=== PATIENT | female | born 1960 | race American Indian/Alaskan Native ===

== ENCOUNTER 2016-09-10 01:44 | Inpatient (IN) | payer MEDICAID ==
--- NOTE | 2016-09-10 02:31 | ED PDOC ---
Arrival/HPI - General Chief Complaint: Anxiety Time Seen by Provider: 09/10/16 02:05 Historian: Patient - History of Present Illness Narrative History of Present Illness (Text): 09/10/16 02:24 [place] He is a 55 year old female, whose past medical history includes cervical cancer currently undergoing chemotherapy and 2 CVAs, who presents to the Emergency department complaining of bilateral lower extremity pain, chest pain, and shortness of breath tonight. Patient states she feels symptoms may be due to her anxiety. Patient states she is not from the area and is currently visiting. Patient denies any fever, chills, nausea, vomiting, diarrhea, urinary symptoms, back pain, neck pain, headache, dizziness, or any other complaints. Symptom Onset: Gradual Symptom Course: Unchanged Quality: Cramping Activities at Onset: Rest, Light Context: Home Past Medical History - Provider Review Nursing Documentation Reviewed: Yes - Cardiac Hx Hypertension: Yes - Pulmonary Hx Respiratory Disorders: No - Neurological Hx Neurological Disorder: No - HEENT Hx HEENT Disorder: No - Renal Hx Renal Disorder: No - Endocrine/Metabolic Hx Endocrine Disorders: No - Hematological/Oncological Hx Blood Disorders: No - Integumentary Hx Dermatological Disorder: No - Musculoskeletal/Rheumatological Hx Musculoskeletal Disorders: No - Gastrointestinal Hx Gastrointestinal Disorders: No - Genitourinary/Gynecological Hx Genitourinary Disorders: No - Psychiatric Hx Anxiety: Yes Hx Substance Use: No - Surgical History Hx Hysterectomy: Yes (cancer) - Anesthesia Hx Anesthesia: No Family/Social History - Physician Review Nursing Documentation Reviewed: Yes Family/Social History: Unknown Family HX Smoking Status: Never Smoked Hx Alcohol Use: Yes (wine coolers) Frequency of alcohol use: Daily Hx Substance Use: No Allergies/Home Meds Allergies/Adverse Reactions: Allergies No Known Allergies Allergy (Verified 09/10/16 02:01) Home Medications: Home Meds Medication Instructions Recorded Confirmed Unobtainable 09/10/16 09/10/16 Review of Systems - Physician Review All systems were reviewed & negative as marked: Yes - Review of Systems Constitutional: Normal. absent: Fevers Eyes: Normal ENT: Normal Respiratory: SOB Cardiovascular: Chest Pain Gastrointestinal: Normal. absent: Abdominal Pain, Diarrhea, Nausea, Vomiting Genitourinary Female: Normal. absent: Dysuria, Frequency, Hematuria, Urine Output Changes Musculoskeletal: Other (+bilateral lower extremity pain). absent: Back Pain, Neck Pain Skin: Normal. absent: Rash Neurological: Normal. absent: Headache, Dizziness Endocrine: Normal Hemo/Lymphatic: Normal Psychiatric: Normal Physical Exam Vital Signs Reviewed: Yes Vital Signs Temp Pulse Resp BP Pulse Ox 09/10/16 02:01 97.3 F L 67 18 152/96 H 98 Temperature: Afebrile Blood Pressure: Normal Pulse: Regular Respiratory Rate: Normal Appearance: Positive for: Well-Appearing, Non-Toxic, Comfortable Pain Distress: None Mental Status: Positive for: Alert and Oriented X 3 - Systems Exam Head: Present: Atraumatic, Normocephalic Pupils: Present: PERRL Extroacular Muscles: Present: EOMI Conjunctiva: Present: Normal Mouth: Present: Moist Mucous Membranes Neck: Present: Normal Range of Motion Respiratory/Chest: Present: Clear to Auscultation, Good Air Exchange. No: Respiratory Distress, Accessory Muscle Use Cardiovascular: Present: Regular Rate and Rhythm, Normal S1, S2. No: Murmurs Abdomen: Present: Normal Bowel Sounds. No: Tenderness, Distention, Peritoneal Signs Back: Present: Normal Inspection Upper Extremity: Present: Normal Inspection. No: Cyanosis, Edema Lower Extremity: Present: Normal Inspection. No: Edema Neurological: Present: GCS=15, CN II-XII Intact, Speech Normal Skin: Present: Warm, Dry, Normal Color. No: Rashes Psychiatric: Present: Alert, Oriented x 3, Normal Insight, Normal Concentration Medical Decision Making ED Course and Treatment: 09/10/16 02:24 Impression: 55 year old female complaining of bilateral lower extremity pain, chest pain, and shortness of breath. Plan: -- US Duplex Lower Extremities -- EKG -- Chest X-ray -- Labs, D-dimer -- Xanax -- Reassess and disposition Progress Notes: 09/10/16 03:43 Reviewed EKG, NSR at 69 bpm. Sinus arrhythmia. No acute changes. 09/10/16 04:06 US Duplex Lower Extremities negative for DVT. Reviewed radiology, Chest X-ray shows no acute processes. Labs noted. D-dimer: 1.52. CTA Chest ordered. 09/10/16 05:[address] Hays, who is aware and agrees with plan. Accepts pt in to hospitalist service. Pt will go to Telemetry observation for chest pain. vice president of development notified. 09/10/16 05:14 Pt refusing IV access for CTA. Pt kept for observation. - Lab Interpretations Lab Results: 09/10/16 03:04 09/10/16 03:04 Lab Results 09/10/16 03:04: PT 11.4, INR 1.06, APTT 26.5, D-Dimer, Quantitative 1.52 H 09/10/16 03:04: WBC 4.4 L, RBC 3.25 L, Hgb 9.5 L, Hct 28.5 L, MCV 87.7, MCH 29.2 , MCHC 33.3, RDW 15.8 H, Plt Count 230, MPV 8.8 09/10/16 03:04: Sodium 141, Potassium 3.2 L, Chloride 108 H, Carbon Dioxide 23, Anion Gap 13, BUN 10, Creatinine 1.0, Est GFR ( Amer) > 60, Est GFR (Non- Af Amer) 57, Random Glucose 95, Calcium 9.3, Total Bilirubin 0.7, AST 42 H, ALT 33, Alkaline Phosphatase 90, Total Protein 7.0, Albumin 3.5, Globulin 3.5, Albumin/Globulin Ratio 1.0 L I have reviewed the lab results: Yes - RAD Interpretation Radiology Orders: 09/10/16 02:38 CHEST PORTABLE [RAD] Stat 09/10/16 02:39 DUPLEX LOWER EXTRM VEIN BILAT [US] Stat 09/10/16 04:14 ANGIO CHEST PE PROTOCOL [CT] Stat Rail Operator: ED Physician - EKG Interpretation Interpreted by ED Physician: Yes Type: 12 lead EKG - Medication Orders Current Medication Orders: Sodium Chloride (Sodium Chloride 0.9%) 1,000 mls @ 100 mls/hr IV .Q10H REGINE Discontinued Medications Alprazolam (Xanax) 0.25 mg PO ONCE ONE Stop: 09/10/16 02:41 Last Admin: 09/10/16 03:18 Dose: 0.25 mg Iodixanol (Visipaque 320 Mg/Ml 100 Ml) Confirm Administered Dose 100 ml IV .STK- MED ONE Stop: 09/10/16 04:22 Potassium Chloride (K-Dur 20 Meq Er Tab) 20 meq PO STAT STA Stop: 09/10/16 04:14 Last Admin: 09/10/16 04:39 Dose: 20 meq - Scribe Statement The provider has reviewed the documentation as recorded by the Jeni Rdz Provider Scribe Attestation: All medical record entries made by the Brendaibmichel were at my direction and personally dictated by me. I have reviewed the chart and agree that the record accurately reflects my personal performance of the history, physical exam, medical decision making, and the department course for this patient. I have also personally directed, reviewed, and agree with the discharge instructions and disposition. Disposition/Present on Arrival - Present on Arrival Any Indicators Present on Arrival: No History of DVT/PE: No History of Uncontrolled Diabetes: No Urinary Catheter: No History of Decub. Ulcer: No History Surgical Site Infection Following: None - Disposition Have Diagnosis and Disposition been Completed?: Yes Diagnosis: Chest pain Disposition: HOSPITALIZED Disposition Time: 05:20 Patient Plan: Observation Condition: STABLE Discharge Instructions (ExitCare): Chest Pain (ED)
[2016-09-10 03:29] LABS: HEMOGLOBIN 9.5 gm/dL (12.0-16.0); MEAN CELL VOLUME 87.7 fL (80.0-105.0); MEAN CORPUSCULAR HEMOGLOBIN 29.2 pg (25.0-35.0); MEAN CORPUSCULAR HGB CONC 33.3 g/dl (31.0-37.0); MEAN PLATELET VOLUME 8.8 fl (7.0-11.0); RBC 3.25 10^6/uL (3.5-6.1); RED CELL DISTRIBUTION WIDTH 15.8 % (11.5-14.5); WHITE BLOOD COUNT 4.4 10^3/ul (4.5-11.0)
[2016-09-10 03:32] LABS: ALBUMIN 3.5 g/dL (3.0-4.8); ALT/SGPT 33 U/L (7-56); AST/SGOT 42 U/L (15-39); BLOOD UREA NITROGEN 10 mg/dL (7-21); CALCIUM 9.3 mg/dL (8.4-10.5); GFR AFRICAN-AMERICAN > 60; GFR NON-AFRICAN AMERICAN 57
[2016-09-10 03:38] LABS: INR 1.06 (0.93-1.08); PARTIAL THROMBOPLASTIN TIME 26.5 Seconds (23.7-30.8); PROTHROMBIN TIME 11.4 Seconds (9.9-11.8)
[2016-09-10 03:41] LABS: D DIMER 1.52 mg/L FEU (0-0.50)
[2016-09-10] MEDS ORDERED: Potassium Chloride 20 mEq ER Tab PO STA (04:13)
[2016-09-10] MEDS ORDERED: Iodixanol 320 MG/ML 100 ML BOTTLE IV ONE (04:21)
--- NOTE | 2016-09-10 04:34 | CP.PCM.HP ---
<Edmundo Sheriff - Last Filed: 09/10/16 05:43> History of Present Illness - History of Present Illness History of Present Illness: Patient is a 55 year old female, whose past medical history includes cervical cancer, 2 CVAs, hypertension, and anxiety who is being admitted to the ED for evaluation of bilateral lower extremity pain, chest pain, and shortness of breath. Patient states that she has been experiencing cramping in her bilateral lower extremities for the past 2 weeks. Patient also states that she is experiencing groin pain which radiates to her substernum. She currently admits to SOB with exertion. It is important to note that the patient is from [place], [place] and is visiting [place]. She admits to receiving chemotherapy for her cervical cancer last year and her last dose was 6 months ago. She states her physicians, whom she cannot recall, stopped the chemotherapy after findings of cancer metastasizing. Patient is currently denying fever, chills, dizziness, abdominal pain, N/V, diarrhea, constipation, and urinary symptoms. PMHx: Hypertension, cervical cancer, anxiety, CVA PSHx: hysterectomy Social: ETOH occasional, former tobacco user- quit 10 years ago, states she smoked a few cigarettes for "some time"- will not quantify, no illicit drug use Meds: patient cannot recall any home medications, states her health insurance changed Family Hx: noncontributory to case Allergies: pencillin- rash Present on Admission - Present on Admission Any Indicators Present on Admission: No Review of Systems - Review of Systems Review of Systems: Please see HPI Past Patient History - Past Social History Smoking Status: Never Smoked - CARDIAC Hx Hypertension: Yes - PULMONARY Hx Respiratory Disorders: No - NEUROLOGICAL Hx Neurological Disorder: No - HEENT Hx HEENT Problems: No - RENAL Hx Chronic Kidney Disease: No - ENDOCRINE/METABOLIC Hx Endocrine Disorders: No - HEMATOLOGICAL/ONCOLOGICAL Hx Blood Disorders: No - INTEGUMENTARY Hx Dermatological Problems: No - MUSCULOSKELETAL/RHEUMATOLOGICAL Hx Musculoskeletal Disorders: No - GASTROINTESTINAL Hx Gastrointestinal Disorders: No - GENITOURINARY/GYNECOLOGICAL Hx Genitourinary Disorders: No - PSYCHIATRIC Hx Anxiety: Yes Hx Substance Use: No - SURGICAL HISTORY Hx Hysterectomy: Yes (cancer) - ANESTHESIA Hx Anesthesia: No Meds Allergies/Adverse Reactions: Allergies Allergy/AdvReac Type Severity Reaction Status Date / Time No Known Allergies Allergy Verified 09/10/16 02:01 Physical Exam - Constitutional Appears: Unkempt, Agitated - Head Exam Head Exam: NORMAL INSPECTION - Eye Exam Eye Exam: EOMI, Normal appearance - Neck Exam Neck exam: Positive for: Normal Inspection. Negative for: Tenderness - Respiratory Exam Respiratory Exam: Clear to Auscultation Bilateral, Rales, Rhonchi, Wheezes, NORMAL BREATHING PATTERN. absent: Accessory Muscle Use - Cardiovascular Exam Cardiovascular Exam: REGULAR RHYTHM, +S1, +S2 - GI/Abdominal Exam GI & Abdominal Exam: Normal Bowel Sounds, Soft. absent: Guarding, Rigid - Exam Additional comments: patient currently agitated and is requesting to be left alone denies permission for examination at this time - Extremities Exam Extremities exam: Positive for: normal inspection, pedal pulses present - Neurological Exam Neurological exam: Alert, CN II-XII Intact, Oriented x3 Additional comments: patient is awake, alert, responds to verbal stimuli, follows commands, and moves extremities past midline - Psychiatric Exam Psychiatric exam: Agitated, Anxious - Skin Skin Exam: Normal Color, Warm Results - Vital Signs Recent Vital Signs: Last Vital Signs Temp 97.3 F L 09/10/16 02:01 Pulse 67 09/10/16 02:01 Resp 18 09/10/16 02:01 BP 152/96 H 09/10/16 02:01 Pulse Ox 98 09/10/16 02:01 - Labs Result Diagrams: 09/10/16 03:04 09/10/16 03:04 Labs: Laboratory Results - last 24 hr 09/10/16 09/10/16 09/10/16 03:04 03:04 03:04 WBC 4.4 L RBC 3.25 L Hgb 9.5 L Hct 28.5 L MCV 87.7 MCH 29.2 MCHC 33.3 RDW 15.8 H Plt Count 230 MPV 8.8 PT 11.4 INR 1.06 APTT 26.5 D-Dimer, Quantitative 1.52 H Sodium 141 Potassium 3.2 L Chloride 108 H Carbon Dioxide 23 Anion Gap 13 BUN 10 Creatinine 1.0 Est GFR ( Amer) > 60 Est GFR (Non-Af Amer) 57 Random Glucose 95 Calcium 9.3 Total Bilirubin 0.7 AST 42 H ALT 33 Alkaline Phosphatase 90 Total Protein 7.0 Albumin 3.5 Globulin 3.5 Albumin/Globulin Ratio 1.0 L Assessment & Plan - Assessment and Plan (Free Text) Assessment: Patient is a 55 year old female with a PMHx of hypertension, cervical cancer, and anxiety who is being admitted for evaluation and treatment of bilateral lower extremity pain, chest pain, and SOB. 1. Bilateral Lower Extremity Pain - US Duplex Lower Extremities- preliminary read by ED is negative for DVT - D dimer: 1.52. - CTA Chest ordered by ED physician- pending during admit 2. Chest Pain, SOB - likely 2/2 to anxiety - Reviewed EKG, NSR at 69 bpm. Sinus arrhythmia. No acute changes. - troponins stat q4 x 4 - HgBA1C - Lipid Panel - TSH 3. Anemia - no trend available as this is the patient first visit - iron studies (Fe, TIBC, Ferritin, Folate, B12) 4. Hypokalemia - replete - monitor via daily BMP 5. 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 Hx of Htn - lisinopril 20mg daily 7. PPX - protonix - subq heparin <Lis ANDREA,Chase - Last Filed: 09/10/16 08:31> Results - Vital Signs Recent Vital Signs: Last Vital Signs Temp 98.3 F 09/10/16 07:40 Pulse 54 L 09/10/16 07:40 Resp 18 09/10/16 07:40 BP 114/79 09/10/16 07:40 Pulse Ox 97 09/10/16 07:40 - Labs Result Diagrams: 09/10/16 03:04 09/10/16 03:04 Attending/Attestation - Attestation I have personally seen and examined this patient.: Yes I have fully participated in the care of the patient.: Yes I have reviewed all pertinent clinical information: Yes Notes (Text): 09/10/16 08:23 -I agree with the above H&P completed by the resident physician with the following additions and/or changes: The patient is a 55 year old woman with a history of cervical cancer, HTN, anxiety disorder and multiple CVA's (with no residual deficits), who presents with multiple complaints including 2 weeks of worsening bilateral lower extremity pain, intermittent chest pain and SOB. She denies orthopnea, PND, fevers or chills. Because of an elevated D-Dimer on ED labs, a CT-angio has been ordered to rule out acute PE (although the patient's vitals are relatively normal). Also, serial trops and EKG's as well as HgA1c, lipids and TSH has been ordered. Preliminary U/S of her legs was negative for DVT. We will start patient on daily Lisinopril for her HTN since she cannot remember her home medication. Also, a cardiology consult has been requested.
[2016-09-10] MEDS: Sodium Chloride 0.9% 1,000 ML IV SCH ×2 (04:39→06:16)
--- NOTE | 2016-09-10 08:06 | RAD ---
HISTORY: fever COMPARISON: No prior. FINDINGS: The right MediPort terminates in the SVC. LUNGS: Lung markings are accentuated. There is no focal consolidation. There is mild pulmonary hyperinflation. PLEURA: No significant pleural effusion identified, no pneumothorax apparent. CARDIOVASCULAR: Normal. OSSEOUS STRUCTURES: No significant abnormalities. VISUALIZED UPPER ABDOMEN: Normal. OTHER FINDINGS: None. IMPRESSION: No lobar pneumonia. Findings could be related to atypical/ viral pneumonia.
[2016-09-10 08:20] LABS: HDL CHOLESTEROL 40 mg/dL (29-60); MAGNESIUM 1.8 mg/dL (1.7-2.2)
[2016-09-10 08:31] LABS: LDL CHOLESTEROL 40 mg/dL (0-129)
[2016-09-10] MEDS: Pantoprazole 40 mg EC Tab PO SCH (08:34)
[2016-09-10 08:39] LABS: TROPONIN I < 0.01 ng/mL
--- NOTE | 2016-09-10 08:56 | US ---
HISTORY: Leg pain and swelling. Evaluate for DVT PHYSICIAN(S): Jose Luis Munroe MD. TECHNIQUE: Duplex sonography and color-flow Doppler with graded compression were used to evaluate the deep venous systems of both lower extremities. FINDINGS: The visualized deep venous systems of both lower extremities are sonographically normal and compressible. Normal wave forms and augmentation are seen. There is no sonographic evidence for deep venous thrombosis in the visualized segments of both lower extremities. IMPRESSION: No sonographic evidence for deep venous thrombosis in the visualized segments of both lower extremities.
[2016-09-10 12:46] LABS: FOLATE 7.2 ng/mL
[2016-09-10 13:47] VITALS: BMI 25.5
[2016-09-10 15:18] LABS: URINE BILIRUBIN NEGATIVE (NEGATIVE); URINE BLOOD TRACE-INTACT (NEGATIVE); URINE GLUCOSE (UA) NEGATIVE (NEGATIVE); URINE LEUKOCYTE ESTERASE LARGE Leu/uL (NEGATIVE); URINE NITRATE NEGATIVE (NEGATIVE); URINE PROTEIN TRACE mg/dL (<30 mg/dL)
[2016-09-10 15:28] LABS: URINE APPEARANCE SL CLOUDY (CLEAR); URINE COLOR YELLOW (YELLOW)
[2016-09-10 15:37] LABS: URINE RBC 0 - 2 /hpf (0-2); URINE WBC TNTC /hpf (0-6)
[2016-09-10 15:38] LABS: URINE BACTERIA FEW (NEG)
[2016-09-10 15:50] LABS: BARBITURATES, UR NEGATIVE (NEGATIVE); BENZODIAZEPINES, UR POSITIVE (NEGATIVE); OPIATES, UR NEGATIVE (NEGATIVE); PHENCYCLIDINE, UR NEGATIVE (NEGATIVE)
--- NOTE | 2016-09-10 18:33 | CP.PCM.PN ---
<Myke Pope - Last Filed: 09/10/16 18:30> Subjective - Date & Time of Evaluation Date of Evaluation: 09/10/16 Time of Evaluation: 18:31 - Subjective Subjective: Patient is no longer complaining of SOB. She is still complain of Lower Extremity pain. She states that the pain starts in her groin region and radiates up to her chest. She still complains of chest pain that is reproducible. Of note, patient is a poor historian. Objective - Vital Signs/Intake and Output Vital Signs (last 24 hours): Temp Pulse Resp BP Pulse Ox 98.3 F 74 18 114/79 97 09/10/16 13:31 09/10/16 14:00 09/10/16 13:31 09/10/16 13:31 09/10/16 07:40 Intake and Output: 09/10/16 09/10/16 06:59 18:59 Intake Total 480 Balance 480 - Medications Medications: Current Medications Aspirin (Aspirin Chewable) 81 mg PO DAILY [facility] Last Admin: 09/10/16 09:57 Dose: 81 mg Heparin Sodium (Porcine) (Heparin) 5,000 units SC Q12 REGINE PRN Reason: Protocol Hydroxyzine HCl (Atarax) 15 mg PO TID PRN PRN Reason: Anxiety Last Admin: 09/10/16 14:46 Dose: 15 mg Ceftriaxone Sodium (Rocephin 1 Gram Ivpb) 1 gm in 100 mls @ 100 mls/hr IVPB DAILY REGINE PRN Reason: Protocol Lisinopril (Zestril) 20 mg PO DAILY [facility] Last Admin: 09/10/16 06:20 Dose: 20 mg Pantoprazole Sodium (Protonix Ec Tab) 40 mg PO ACB [facility] Last Admin: 09/10/16 08:34 Dose: 40 mg Quetiapine Fumarate (Seroquel) 50 mg PO TID REGINE PRN Reason: Protocol Last Admin: 09/10/16 18:25 Dose: Not Given - Labs Labs: PT 11.4 Seconds (9.9-11.8) 09/10/16 03:04 INR 1.06 (0.93-1.08) 09/10/16 03:04 APTT 26.5 Seconds (23.7-30.8) 09/10/16 03:04 - Head Exam Head Exam: ATRAUMATIC, NORMOCEPHALIC - Respiratory Exam Respiratory Exam: Clear to Ausculation Bilateral. absent: Rales, Rhonchi, Wheezes, Stridor - Cardiovascular Exam Cardiovascular Exam: REGULAR RHYTHM, +S1, +S2 - GI/Abdominal Exam GI & Abdominal Exam: Tenderness Additional comments: suprapubic tenderness - Extremities Exam Extremities Exam: absent: Pedal Edema - Neurological Exam Neurological Exam: Altered, Awake - Psychiatric Exam Psychiatric exam: Anxious Assessment and Plan - Assessment and Plan (Free Text) Assessment: Patient is a 55 year old female with a PMHx of hypertension, cervical cancer, CVA and anxiety who is being admitted for evaluation and treatment of bilateral lower extremity pain, chest pain, and SOB. UA came back positive. UDS was positive for Cocaine and Benzodiazepines. Patient is poor historian. Further investigation reveals that patient was receiving chemotherapy while living in [place] but has likely not received treatment for a couple months (per daughter). Pharmacy was called and medication list was updated. Seroquel and Hydorxizine were added. Plan: 1. Bilateral proximal lower extremity/pelvic pain - US Duplex Lower Extremities negative - D dimer: 1.52. - CTA Chest ordered-F/U 2. Chest Pain, SOB - Likely 2/2 to anxiety and cocaine use. - Reviewed EKG, NSR at 69 bpm. Sinus arrhythmia. No acute changes. - troponins (1st trop negative) - HgBA1C - Lipid Panel normal - TSH normal 3.UTI -Rocephin 1gm in 100ml IVP Daily 4. Anemia (Hgb 9.5) - Iron Studies normal. Possibly Anemia of chronic disease 4. Anxiety -Seroquel 50 PO TID -Hydroxyzine 15 PO TID PRN -D/Cd Xanax 4. Hypokalemia - Replete - monitor via daily BMP 5. 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 Hx of Htn - lisinopril 20mg daily 7. PPX - protonix - subq heparin <Rolando Del Valle - Last Filed: 09/10/16 21:33> Objective - Vital Signs/Intake and Output Vital Signs (last 24 hours): Temp Pulse Resp BP Pulse Ox 98.3 F 69 18 114/79 97 09/10/16 13:31 09/10/16 18:00 09/10/16 13:31 09/10/16 13:31 09/10/16 07:40 Intake and Output: 09/10/16 09/11/16 18:59 06:59 Intake Total 480 Balance 480 - Medications Medications: Current Medications Aspirin (Aspirin Chewable) 81 mg PO DAILY [facility] Last Admin: 09/10/16 09:57 Dose: 81 mg Heparin Sodium (Porcine) (Heparin) 5,000 units SC Q12 REGINE PRN Reason: Protocol Hydroxyzine HCl (Atarax) 15 mg PO TID PRN PRN Reason: Anxiety Last Admin: 09/10/16 14:46 Dose: 15 mg Ceftriaxone Sodium (Rocephin 1 Gram Ivpb) 1 gm in 100 mls @ 100 mls/hr IVPB DAILY REGINE PRN Reason: Protocol Lisinopril (Zestril) 20 mg PO DAILY [facility] Last Admin: 09/10/16 06:20 Dose: 20 mg Pantoprazole Sodium (Protonix Ec Tab) 40 mg PO ACB [facility] Last Admin: 09/10/16 08:34 Dose: 40 mg Quetiapine Fumarate (Seroquel) 50 mg PO TID [facility] PRN Reason: Protocol Last Admin: 09/10/16 18:25 Dose: Not Given - Labs Labs: PT 11.4 Seconds (9.9-11.8) 09/10/16 03:04 INR 1.06 (0.93-1.08) 09/10/16 03:04 APTT 26.5 Seconds (23.7-30.8) 09/10/16 03:04 Attending/Attestation - Attestation I have personally seen and examined this patient.: Yes I have fully participated in the care of the patient.: Yes I have reviewed all pertinent clinical information, including history, physical exam and plan: Yes Notes (Text): 09/10/16 21:28 55 year old female with past medical history of hypertension, anxiety and cervical cancer who presented with complaint of chest pain, shortness of breath , suprapubic pain and bilateral LE pain. D-dimer was elevated. LE doppler was negative and CT angio was ordered to rule out PE. Serial cardiac enzymes are ordered. Cardiology evaluation is requested. She states she was [place] [facility] and recent medical records are requested. UA is positive for UTI and Utox was positive for cocaine and benzodiazepines. Anemia workup was ordered for anemia. Continue with lisinopril for hypertension. Hypokalemia was repleted earlier today; will follow up on repeat level. Rolando Del Valle MD Hospitalist.
[2016-09-10 19:39] LABS: % IRON SATURATION 14 % (20-55); IRON 37 ug/dL (45-180); TOTAL IRON BINDING CAPACITY 263 ug/dL (265-497)
--- NOTE | 2016-09-10 20:36 | CARD ---
APPROVED REPORT EKG Measurement Heart [id number] <Conclusion> Normal sinus rhythm Normal ECG
--- NOTE | 2016-09-10 20:42 | CARD ---
APPROVED REPORT EKG Measurement Heart [id number] VA [id number] <Conclusion> Sinus bradycardia with marked sinus arrhythmia Otherwise normal ECG
--- NOTE | 2016-09-10 23:24 | CARD ---
APPROVED REPORT EKG Measurement Heart [id number] NM 162P72 [id number] <Conclusion> Normal sinus rhythm with sinus arrhythmia Normal ECG
--- NOTE | 2016-09-10 23:44 | CARD ---
APPROVED REPORT EKG Measurement Heart [id number] AL [id number] <Conclusion> Normal sinus rhythm Low voltage QRS Nonspecific T wave abnormality Abnormal ECG
--- NOTE | 2016-09-11 02:18 | CON ---
DATE: 09/10/2016 REASON FOR CONSULTATION: Chest pain. HISTORY OF PRESENT ILLNESS: The patient is a 55-year-old female who has history of hypertension, history of two strokes in the past, history of cervical cancer, currently undergoing chemotherapy and history of cocaine abuse. She presented because of bilateral lower extremity pain as well as sharp chest pain. The patient is unaware of any history of heart attack in the past. The patient was hospitalized recently at [facility], but could not give any significant information about this hospitalization. There is no reported arrhythmia on the monitor since the patient's admission. SOCIAL HISTORY: The patient is a smoker and cocaine abuser. MEDICATIONS: Aspirin 81 mg once daily, heparin 5000 units subcutaneous twice a day, Zestril 20 mg once a day, Protonix 40 mg once a day. REVIEW OF SYSTEMS: No fever or chills. No syncope. PHYSICAL EXAMINATION: GENERAL: The patient is a middle-aged female, who does not appear to be in any distress at this time. VITAL SIGNS: Blood pressure 115/82, heart rate 76, temperature 97.4, respirations 18. HEENT: Pale conjunctivae. CHEST: Clear. HEART: Sounds regular. EXTREMITIES: No edema. LABORATORY DATA: Hemoglobin and hematocrit 9.5 and 28.5. White count and platelet count are 4.4 and 230,000. Sodium 141, potassium 3.2, chloride 108, CO2 of 23, glucose of 95, BUN 10, creatinine 1.0. TSH level is within normal limit. D-dimer is 1.52. PT/PTT are within normal limits. Venous Doppler of the lower extremities; no evidence of DVT. CT angio of the chest is still pending. EKG revealed sinus rhythm or sinus arrhythmia. One set of troponin is negative. ASSESSMENT: 1. Chest pain, rule out myocardial infarction. 2. Rule out pulmonary infarction. 3. Hypertension and history of cerebrovascular accident. 4. History of uterine cancer, undergoing chemotherapy. CONDITIONS: The case was discussed with Dr. Del Valle. Continue current aspirin, subcutaneus heparin, Zestril at 20 mg once a day. The patient is awaiting echo and CT angio of the chest. David Johnson MD
[2016-09-11 06:58] LABS: BASO # 0.01 K/mm3 (0.0-2.0); BASO % 0.3 % (0.0-3.0); EOS # 0.1 (0.0-0.7); EOS % 3.1 % (1.5-5.0); GRAN # 2.09 (1.4-6.5); GRAN % 64.5 % (50.0-68.0); HEMOGLOBIN 9.8 gm/dL (12.0-16.0); LYMPH # 0.7 (1.2-3.4); LYMPH % 20.7 % (22.0-35.0); MEAN CELL VOLUME 87.7 fL (80.0-105.0); MEAN CORPUSCULAR HEMOGLOBIN 29.3 pg (25.0-35.0); MEAN CORPUSCULAR HGB CONC 33.4 g/dl (31.0-37.0); MEAN PLATELET VOLUME 9.5 fl (7.0-11.0); MONO # 0.4 (0.1-0.6); MONO % 11.4 % (1.0-6.0); PLATELET COUNT 227 10^3/uL (120.0-450.0); RBC 3.34 10^6/uL (3.5-6.1); RED CELL DISTRIBUTION WIDTH 15.9 % (11.5-14.5); WHITE BLOOD COUNT 3.2 10^3/ul (4.5-11.0)
[2016-09-11 07:11] LABS: ALBUMIN 3.1 g/dL (3.0-4.8); ALT/SGPT 23 U/L (7-56); AST/SGOT 32 U/L (15-39); BLOOD UREA NITROGEN 16 mg/dL (7-21); CALCIUM 9.1 mg/dL (8.4-10.5); GFR AFRICAN-AMERICAN > 60; GFR NON-AFRICAN AMERICAN 57
[2016-09-11] MEDS: Pantoprazole 40 mg EC Tab PO SCH (08:06)
[2016-09-11] MEDS: cefTRIAXone 1 gm 1 GM/100 ML BAG IVPB SCH (09:29)
[2016-09-11] MEDS ORDERED: Iodixanol 320 mg/ml 150 ml Bottle IV ONE (13:47)
--- NOTE | 2016-09-11 16:29 | CP.PCM.PN ---
<Mayo Popegaudencio - Last Filed: 09/11/16 16:26> Subjective - Date & Time of Evaluation Date of Evaluation: 09/11/16 Time of Evaluation: 16:26 - Subjective Subjective: Pt seen and examined this morning. Pt reports continued pain in her groin. Also complains of urinary frequency. Denies fever, chills, SOB, dysuria, constipation , diarrhea. Objective - Vital Signs/Intake and Output Vital Signs (last 24 hours): Temp Pulse Resp BP Pulse Ox 98.4 F 74 21 119/82 98 09/11/16 11:33 09/11/16 11:33 09/11/16 11:33 09/11/16 11:33 09/11/16 08:00 Intake and Output: 09/11/16 09/11/16 06:59 18:59 Intake Total 620 Output Total 850 Balance -230 - Medications Medications: Current Medications Aspirin (Aspirin Chewable) 81 mg PO DAILY [facility] Last Admin: 09/11/16 09:28 Dose: 81 mg Ferrous Sulfate (Feosol) 324 mg PO TID [facility] Last Admin: 09/11/16 14:06 Dose: 324 mg Heparin Sodium (Porcine) (Heparin) 5,000 units SC Q12 [facility] PRN Reason: Protocol Last Admin: 09/11/16 09:28 Dose: 5,000 units Hydroxyzine HCl (Atarax) 15 mg PO TID PRN PRN Reason: Anxiety Last Admin: 09/11/16 14:06 Dose: 15 mg Ceftriaxone Sodium (Rocephin 1 Gram Ivpb) 1 gm in 100 mls @ 100 mls/hr IVPB DAILY [facility] PRN Reason: Protocol Last Admin: 09/11/16 09:29 Dose: 100 mls/hr Ibuprofen (Motrin Tab) 600 mg PO Q6H PRN PRN Reason: Pain, moderate (4-7) Lisinopril (Zestril) 20 mg PO DAILY [facility] Last Admin: 09/11/16 09:30 Dose: 20 mg Pantoprazole Sodium (Protonix Ec Tab) 40 mg PO ACB [facility] Last Admin: 09/11/16 08:06 Dose: 40 mg - Labs Labs: 09/11/16 06:30 09/11/16 06:30 PT 11.4 Seconds (9.9-11.8) 09/10/16 03:04 INR 1.06 (0.93-1.08) 09/10/16 03:04 APTT 26.5 Seconds (23.7-30.8) 09/10/16 03:04 - Constitutional Appears: Non-toxic - Head Exam Head Exam: ATRAUMATIC Additional comments: Tardive dyskensia vs Facial Droop - Eye Exam Eye Exam: EOMI - ENT Exam ENT Exam: Mucous Membranes Moist - Respiratory Exam Respiratory Exam: Clear to Ausculation Bilateral. absent: Rales, Rhonchi, Wheezes, Stridor - Cardiovascular Exam Cardiovascular Exam: RRR, +S1, +S2 - GI/Abdominal Exam GI & Abdominal Exam: Soft, Normal Bowel Sounds Additional comments: Suprapubic tenderness - Extremities Exam Extremities Exam: absent: Joint Swelling, Pedal Edema - Neurological Exam Neurological Exam: Alert, Altered, Oriented x3 - Psychiatric Exam Psychiatric exam: Anxious - Skin Skin Exam: Dry, Intact, Normal Color, Warm Assessment and Plan - Assessment and Plan (Free Text) Assessment: 55yo AA F with PMH of HTN, CVA x2, cervical cancer and anxiety admitted for chest pain, SOB, and b/l LE pain. On exam patient had facial droop vs tardive dyskesia. CT of head ordered by cardio to r/o CVA due to hx of to previous CTA's Plan: 1.Bilateral lower extremity/pelvic pain -US duplex LE neg, D Dimer 1.52 -f/u CTA -f/u CT abd/pelvis for unimproved abd/pelvic pain 2.Chest pain -Likely 2/2 anxiety or cocaine use (positive drug screen), r/o ACS and PE -.EKG shows sinus rhythm, no abnormalities -.Trops neg x2m -TG 58 TChol 104 LDL 40 HDL 40 -TSH 1.22 HbA1c 5.7 -f/u echo, trops, CTA 3.UTI -Urine cx positive for beta hemolytic strep group a -f/u urine cx sensativity -Rocephin day 2 4.Anemia -HGB 9.5->9.8 MCV 87.7 -Ferritin 86 Iron 37 TIBC 263 %Sat 14 -Iron deficiency vs anemia of chronic disease vs both -.Ferrous sulfate 325mg TID 5.Anxiety -Hydroxyzine 15 TID PRN -.d/c Seroquel -.Psych consult 6.Hypokalemia (resolved) -K 3.7 -.Monitor via daily BMP 7.Hx of cervical cancer -Medical records request faxed to [facility] (per daughter, this is where pt received chemotherapy for cervical cancer) -f/u outpt gyne 8.Hx of HTN -Lisinopril 20mg daily GI ppx PTX DVT ppx heparin sc Dispo: f/u imaging studies, medical records request, and psych recs. Cont inpatient management Pt examined, reviewed, and discussed with attending Myke Pope PGY-1 <Rolando Del Valle - Last Filed: 09/11/16 21:42> Objective - Vital Signs/Intake and Output Vital Signs (last 24 hours): Temp Pulse Resp BP Pulse Ox 98 F 76 18 123/85 98 09/11/16 17:55 09/11/16 18:00 09/11/16 17:55 09/11/16 17:55 09/11/16 16:00 Intake and Output: 09/11/16 09/12/16 18:59 06:59 Intake Total 620 Output Total 850 Balance -230 - Medications Medications: Current Medications Aspirin (Aspirin Chewable) 81 mg PO DAILY [facility] Last Admin: 09/11/16 09:28 Dose: 81 mg Ferrous Sulfate (Feosol) 324 mg PO TID [facility] Last Admin: 09/11/16 17:53 Dose: 324 mg Heparin Sodium (Porcine) (Heparin) 5,000 units SC Q12 [facility] PRN Reason: Protocol Last Admin: 09/11/16 09:28 Dose: 5,000 units Hydroxyzine HCl (Atarax) 15 mg PO TID PRN PRN Reason: Anxiety Last Admin: 09/11/16 21:00 Dose: 15 mg Ceftriaxone Sodium (Rocephin 1 Gram Ivpb) 1 gm in 100 mls @ 100 mls/hr IVPB DAILY [facility] PRN Reason: Protocol Last Admin: 09/11/16 09:29 Dose: 100 mls/hr Ibuprofen (Motrin Tab) 600 mg PO Q6H PRN PRN Reason: Pain, moderate (4-7) Lisinopril (Zestril) 20 mg PO DAILY [facility] Last Admin: 09/11/16 09:30 Dose: 20 mg Pantoprazole Sodium (Protonix Ec Tab) 40 mg PO ACB [facility] Last Admin: 09/11/16 08:06 Dose: 40 mg - Labs Labs: 09/11/16 06:30 09/11/16 06:30 PT 11.4 Seconds (9.9-11.8) 09/10/16 03:04 INR 1.06 (0.93-1.08) 09/10/16 03:04 APTT 26.5 Seconds (23.7-30.8) 09/10/16 03:04 Attending/Attestation - Attestation I have personally seen and examined this patient.: Yes I have fully participated in the care of the patient.: Yes I have reviewed all pertinent clinical information, including history, physical exam and plan: Yes Notes (Text): 09/11/16 21:34 55 year old female with past medical history of hypertension, anxiety and cervical cancer who presented with complaint of chest pain, shortness of breath , suprapubic pain and bilateral LE pain. Serial cardiac enzymes were negative. D-dimer was elevated. LE doppler was negative. She was initially refusing CT angio to rule out PE but has now agreed. Echocardiogram was reviewed. Cardiology is following. She states she was recently in [facility] and recent medical records are requested and pending. She is on antibiotics for UTI. Utox was positive for cocaine and benzodiazepines. She counselled on risks of continued substance abuse. She is on po iron for anemia. She is on lisinopril for hypertension. She was on vistaril prn and seroquel. She has some facial weakness / confusion at times. She reports history of CVA in the past so CT head is ordered. Psychiatry evaluation was requested as well. Rolando Del Valle MD Hospitalist.
--- NOTE | 2016-09-11 18:43 | CARD ---
APPROVED REPORT EXAM: Two-dimensional and M-mode echocardiogram with Doppler and color Doppler. INDICATION Chest Pain 2D DIMENSIONS Left Atrium (2D)4.1 (1.6-4.0cm)IVSd1.1 (0.7-1.1cm) LVDd4.8 (3.9-5.9cm)PWd1.3 (0.7-1.1cm) LVDs2.7 (2.5-4.0cm)FS (%) 43.7 % LVEF (%)75.0 (>50%) M-Mode DIMENSIONS Aortic Root3.10 (2.2-3.7cm)Aortic Cusp Exc.1.50 (1.5-2.0cm) Aortic Valve AoV Peak Wzgqrrzn677.0cm/Catia Peak GR.15mmHg Mitral Valve MV E Cgsjlbzq77.6cm/sMV A Mxbzsvzf55.8cm/sE/A ratio0.8 TDI E/Lateral E'0.0E/Medial E'0.0 Tricuspid Valve TR Peak Orpnkfkv460tt/sRAP [id number] Peak Gr.29mmHg [id number] LEFT VENTRICLE The left ventricle is normal size. There is borderline concentric left ventricular hypertrophy. The left ventricular function is normal. The left ventricular ejection fraction is within the normal range. There is normal LV segmental wall motion. Transmitral Doppler flow pattern is Grade I-abnormal relaxation pattern. RIGHT VENTRICLE The right ventricle is normal size. There is normal right ventricular wall thickness. The right ventricular systolic function is normal. ATRIA The left atrium size is normal. The right atrium size is normal. AORTIC VALVE The aortic valve is normal in structure. No aortic regurgitation is present. MITRAL VALVE The mitral valve is normal in structure. There is no mitral valve regurgitation noted. TRICUSPID VALVE The tricuspid valve is normal in structure. There is mild tricuspid regurgitation. There is mild pulmonary hypertension. GREAT VESSELS The aortic root is normal in size. The IVC is normal in size and collapses >50% with inspiration. PERICARDIAL EFFUSION There is no pericardial effusion. <Conclusion> The left ventricle is normal size. There is borderline concentric left ventricular hypertrophy. The left ventricular function is normal. The left ventricular ejection fraction is within the normal range. There is normal LV segmental wall motion. Transmitral Doppler flow pattern is Grade I-abnormal relaxation pattern. There is mild tricuspid regurgitation. There is mild pulmonary hypertension.
--- NOTE | 2016-09-11 21:23 | PN ---
DATE: 09/11/2016 SUBJECTIVE: The patient is sleepy after initiating Ativan. She is confused. She refused chest CT angio. PHYSICAL EXAMINATION VITAL SIGNS: Blood pressure 119/82, heart rate is 74, temperature is 98.4, respirations 21. HEENT: Normocephalic. CHEST: Clear. HEART: S1 and S2 regular. EXTREMITIES: No edema. LABORATORY DATA: Hemoglobin and hematocrit 9.8 and 29.3, white count 3.2, platelet count is 127,000. Urine drug screen is positive for cocaine and opiates. SMA-7 is within normal limits except for carbon dioxide of 112. ASSESSMENT: 1. Chest pain, myocardial infarction is ruled out. 2. Cocaine abuse. 3. Chronic obstructive pulmonary disease. 4. Lethargy. 5. Anemia. RECOMMENDATIONS: Continue current aspirin, subcutaneous heparin, IV Rocephin and Zestril. Obtain a CT scan without contrast and I will review the echocardiograph study. David Johnson MD
[2016-09-12 07:52] LABS: BASO # 0.01 K/mm3 (0.0-2.0); BASO % 0.3 % (0.0-3.0); EOS # 0.1 (0.0-0.7); EOS % 2.6 % (1.5-5.0); GRAN # 2.45 (1.4-6.5); HEMOGLOBIN 10.2 gm/dL (12.0-16.0); LYMPH # 0.5 (1.2-3.4); LYMPH % 15.4 % (22.0-35.0); MEAN CELL VOLUME 86.9 fL (80.0-105.0); MEAN CORPUSCULAR HGB CONC 33.3 g/dl (31.0-37.0); MEAN PLATELET VOLUME 9.2 fl (7.0-11.0); MONO # 0.4 (0.1-0.6); MONO % 11.7 % (1.0-6.0); PLATELET COUNT 230 10^3/uL (120.0-450.0); RBC 3.52 10^6/uL (3.5-6.1); RED CELL DISTRIBUTION WIDTH 15.6 % (11.5-14.5); WHITE BLOOD COUNT 3.5 10^3/ul (4.5-11.0)
[2016-09-12] MEDS: Pantoprazole 40 mg EC Tab PO SCH (07:55)
[2016-09-12 08:11] LABS: ALB/GLOB RATIO 1.1 (1.1-1.8); ALBUMIN 3.4 g/dL (3.0-4.8); ALT/SGPT 26 U/L (7-56); AST/SGOT 30 U/L (15-39); BLOOD UREA NITROGEN 16 mg/dL (7-21); CALCIUM 9.6 mg/dL (8.4-10.5); GFR AFRICAN-AMERICAN > 60; GFR NON-AFRICAN AMERICAN 57
[2016-09-12] MEDS: cefTRIAXone 1 gm 1 GM/100 ML BAG IVPB SCH (10:14)
--- NOTE | 2016-09-12 15:08 | PN ---
DATE: 09/10/2016 SUBJECTIVE: The patient is oriented to place. She denies any chest pain. She did not go for head CT scan yet and a CT angio report was obtained from [facility] and was reported to be negative for pulmonary embolus. PHYSICAL EXAMINATION VITAL SIGNS: Blood pressure is 139/91, heart rate 72, temperature 98.1, respirations 17. HEENT: Loss of left nasolabial fold. CHEST: Clear. HEART: S1 and S2 regular. EXTREMITIES: No edema. LABORATORY DATA: Hemoglobin and hematocrit 10.2 and 30.6, white count and platelet count are 3.5 and 230,000. The SMA-7 is within normal limits. ASSESSMENT: 1. Chest pain, myocardial infarction is ruled out. 2. Rule out cerebrovascular accident. 3. Cocaine abuse. 4. Hypertension. CONDITIONS: The case was discussed with the medical team. Continue aspirin, subcutaneus Lovenox, IV Rocephin, and Zestril, and the patient agreed to go for head CT scan without contrast. David Johnson MD
--- NOTE | 2016-09-12 16:15 | CP.PCM.CON ---
History of Present Illness - History of Present Illness History of Present Illness: Patient is a 55 year old female, would not known previous psychiatric history, patient denied, patient has multiple medical issues including cervical cancer, 2 CVAs, hypertension, patient was admitted on the medical side for evaluation of bilateral lower extremities pain, chest pain, shortness of breath, patient also complained of anxiety and that is why psych consult was called. Patient was seen and examined, discussed with nursing staff. Patient reported that at times she feels anxious, at times she feels depressed, patient denied feeling depressed during the interview, as per nursing report patient was refusing to discount of the abdomen, when this health underwriter asked if patient has any specific reason for refusing this test to be done, patient replied that she has claustrophobia, patient was offered 2 mg of Ativan prior to test, patient was willing to have that test done. Patient denied hearing voices, denied seeing things, denied paranoid ideation. Patient urine drug screen was positive for benzodiazepines as well as cocaine but patient denied using that. Patient denied history of being admitted to psychiatric inpatient unit, denied suicidal attempts in the past. labs reviewed Vital signs reviewed Patient complain of some anxiety, Xanax will be given as needed during this hospitalization, but this health underwriter e'll not recommend to continue that as outpatient. Mental status examination: Patient presented alert, had some slowness of her speech,intermittent eye contact, thought process was coherent and goal directed , mood described 'sometimes I feel anxious", ffect wasconstricted, but reactive mood congruent, thought content patient denied visual started tactile hallucinations, denied paranoid ideation, denied thoughts of harming herself or others, denied intent or plan, insight and judgment fair, impulses controlled impression: Rule out anxiety and depression due to general medical condition Rule out cocaine as well as benzodiazepines abuse Plan: Ativan 2 mg was given to the patient because patient has claustrophobia and was afraid to have CT scan of the abdomen Xanax was given as needed atient presented well, deemed to be not in danger to self or others, discussed with the medical team patient does not meet the criteria for psychiatric inpatient admission, does not meet criteria for [facility] screening, there is no contraindication from this health underwriter side to discharge patient back home. pt could be f/u with [facility] as outpatient Past Patient History - Past Social History Smoking Status: Never Smoked - CARDIAC Hx Hypertension: Yes - PULMONARY Hx Respiratory Disorders: No - NEUROLOGICAL Hx Neurological Disorder: Yes HX Cerebrovascular Accident: Yes (x2 L side weakness as per pt) - HEENT Hx HEENT Problems: No - RENAL Hx Chronic Kidney Disease: No - ENDOCRINE/METABOLIC Hx Endocrine Disorders: No - HEMATOLOGICAL/ONCOLOGICAL Hx Cancer: Yes (cervical had hyst) Hx Chemotherapy: Yes (currently receiving chemo) - INTEGUMENTARY Hx Dermatological Problems: No - MUSCULOSKELETAL/RHEUMATOLOGICAL Hx Falls: No - GASTROINTESTINAL Hx Gastrointestinal Disorders: No - GENITOURINARY/GYNECOLOGICAL Hx Genitourinary Disorders: No - PSYCHIATRIC Hx Substance Use: No - SURGICAL HISTORY Hx Surgeries: Yes (rcw pac) Hx Hysterectomy: Yes (cervical ca) - ANESTHESIA Hx Anesthesia: No Meds Allergies/Adverse Reactions: Allergies Allergy/AdvReac Type Severity Reaction Status Date / Time No Known Allergies Allergy Verified 09/10/16 02:01 - Medications Medications: Current Medications Alprazolam (Xanax) 0.25 mg PO BID PRN; Protocol PRN Reason: Anxiety Stop: 09/19/16 18:01 Aspirin (Aspirin Chewable) 81 mg PO DAILY [facility] Last Admin: 09/12/16 10:15 Dose: 81 mg Ferrous Sulfate (Feosol) 324 mg PO TID [facility] Last Admin: 09/12/16 13:35 Dose: 324 mg Heparin Sodium (Porcine) (Heparin) 5,000 units SC Q12 [facility] PRN Reason: Protocol Last Admin: 09/12/16 10:14 Dose: 5,000 units Ceftriaxone Sodium (Rocephin 1 Gram Ivpb) 1 gm in 100 mls @ 100 mls/hr IVPB DAILY [facility] PRN Reason: Protocol Last Admin: 09/12/16 10:14 Dose: 100 mls/hr Ibuprofen (Motrin Tab) 600 mg PO Q6H PRN PRN Reason: Pain, moderate (4-7) Last Admin: 09/12/16 07:55 Dose: 600 mg Lisinopril (Zestril) 20 mg PO DAILY [facility] Last Admin: 09/12/16 10:14 Dose: 20 mg Pantoprazole Sodium (Protonix Ec Tab) 40 mg PO ACB [facility] Last Admin: 09/12/16 07:55 Dose: 40 mg Results - Vital Signs Recent Vital Signs: Last Vital Signs Temp 98.1 F 09/12/16 12:00 Pulse 62 09/12/16 14:00 Resp 17 09/12/16 12:00 BP 139/91 H 09/12/16 12:00 Pulse Ox 98 09/12/16 09:00 - Labs Result Diagrams: 09/12/16 07:30 09/12/16 07:30 Labs: Laboratory Results - last 24 hr 09/12/16 09/12/16 09/12/16 07:30 07:30 13:50 WBC 3.5 L RBC 3.52 Hgb 10.2 L Hct 30.6 L MCV 86.9 MCH 29.0 MCHC 33.3 RDW 15.6 H Plt Count 230 MPV 9.2 Gran % 70.0 H Lymph % (Auto) 15.4 L Gila % (Auto) 11.7 H Eos % (Auto) 2.6 Baso % (Auto) 0.3 Gran # 2.45 Lymph # 0.5 L Gila # 0.4 Eos # 0.1 Baso # 0.01 Sodium 141 Potassium 4.2 Chloride 109 Carbon Dioxide 24 Anion Gap 12 BUN 16 Creatinine 1.0 Est GFR ( Amer) > 60 Est GFR (Non-Af Amer) 57 Random Glucose 95 Calcium 9.6 Total Bilirubin 0.4 AST 30 ALT 26 Alkaline Phosphatase 88 Troponin I < 0.01 Total Protein 6.6 Albumin 3.4 Globulin 3.2 Albumin/Globulin Ratio 1.1
--- NOTE | 2016-09-12 16:29 | CP.PCM.PN ---
<OrestesMyke woods - Last Filed: 09/12/16 16:25> Subjective - Date & Time of Evaluation Date of Evaluation: 09/12/16 Time of Evaluation: 16:26 - Subjective Subjective: Pt seen and examined this morning. Pt reports continued pain in her groin and both legs, rated 6/10. Denies chest pain, reports SOB only when she becomes anxious. Pt reports some slurring of speech and tightness in her R hand and leg since yesterday. Also complains of urinary frequency. Pt denies fever, chills, dysuria, constipation, and diarrhea. Objective - Vital Signs/Intake and Output Vital Signs (last 24 hours): Temp Pulse Resp BP Pulse Ox 98.1 F 62 17 139/91 H 98 09/12/16 12:00 09/12/16 14:00 09/12/16 12:00 09/12/16 12:00 09/12/16 09:00 Intake and Output: 09/12/16 09/12/16 06:59 18:59 Intake Total 720 Output Total 1200 Balance -480 - Medications Medications: Current Medications Alprazolam (Xanax) 0.25 mg PO BID PRN; Protocol PRN Reason: Anxiety Stop: 09/19/16 18:01 Aspirin (Aspirin Chewable) 81 mg PO DAILY [facility] Last Admin: 09/12/16 10:15 Dose: 81 mg Ferrous Sulfate (Feosol) 324 mg PO TID [facility] Last Admin: 09/12/16 13:35 Dose: 324 mg Heparin Sodium (Porcine) (Heparin) 5,000 units SC Q12 [facility] PRN Reason: Protocol Last Admin: 09/12/16 10:14 Dose: 5,000 units Ceftriaxone Sodium (Rocephin 1 Gram Ivpb) 1 gm in 100 mls @ 100 mls/hr IVPB DAILY [facility] PRN Reason: Protocol Last Admin: 09/12/16 10:14 Dose: 100 mls/hr Ibuprofen (Motrin Tab) 600 mg PO Q6H PRN PRN Reason: Pain, moderate (4-7) Last Admin: 09/12/16 07:55 Dose: 600 mg Lisinopril (Zestril) 20 mg PO DAILY [facility] Last Admin: 09/12/16 10:14 Dose: 20 mg Pantoprazole Sodium (Protonix Ec Tab) 40 mg PO ACB [facility] Last Admin: 09/12/16 07:55 Dose: 40 mg - Labs Labs: 09/12/16 07:30 09/12/16 07:30 PT 11.4 Seconds (9.9-11.8) 09/10/16 03:04 INR 1.06 (0.93-1.08) 09/10/16 03:04 APTT 26.5 Seconds (23.7-30.8) 09/10/16 03:04 - Head Exam Additional comments: Decreased sensation on the L side of the face,. CN 7/8 mild loss of nasolabial fold on L side noted, pt is able to smile showing teeth and puff out her cheeks - Eye Exam Additional comments: CN 2 intact. CN 3/4/6 mild drooping of L eyelid, unable to abduct L eye, all other EOM intact. CN 5 - - ENT Exam ENT Exam: Mucous Membranes Moist - Respiratory Exam Respiratory Exam: Clear to Ausculation Bilateral. absent: Rales, Rhonchi, Wheezes, Respiratory Distress, Stridor - Cardiovascular Exam Cardiovascular Exam: RRR, +S1, +S2 - GI/Abdominal Exam GI & Abdominal Exam: Soft. absent: Tenderness, Organomegaly - Exam Additional comments: Suprapubic tenderness - Neurological Exam Neuro motor strength exam: Left Upper Extremity: 5, Right Upper Extremity: 5, Left Lower Extremity: 5, Right Lower Extremity: 5 Additional comments: See Head and Eye exam - Psychiatric Exam Psychiatric exam: Agitated, Anxious - Skin Skin Exam: Dry, Intact, Normal Color, Warm Assessment and Plan - Assessment and Plan (Free Text) Assessment: 55yo AA F with PMH of HTN, CVA x2, cervical cancer and anxiety admitted for chest pain, SOB, and b/l LE pain. Plan: 1.Slurred speech/facial palsy/Tardive dyskinesia -New CVA vs residual deficit from previous CVAs vs possible tardive dyskinesia -f/u CT head 2.UTI -Urine cx positive for beta hemolytic strep group a -f/u urine cx sensativity -Rocephin day 3 3.Bilateral lower extremity/pelvic pain -US duplex LE neg, D Dimer 1.52 -CTA at [facility] on 08/29/16 was neg 4.Chest pain - resolved Likely 2/2 anxiety or cocaine use (positive drug screen), r/o ACS and PE EKG shows sinus rhythm, no abnormalities Trops neg x3 TG 58 TChol 104 LDL 40 HDL 40 TSH 1.22 HbA1c 5.7 CTA neg from 08/29/[place] [facility] per obtained medical records, echo neg f/u cardio recs. Head CT refused today admit to Inpatient and move to [facility]. 5.Anemia - improving HGB 9.5->9.8->10.2 MCV 87.7 Ferritin 86 Iron 37 TIBC 263 %Sat 14 Iron deficiency vs anemia of chronic disease vs both Ferrous sulfate 325mg TID 6.Anxiety Hydroxyzine 15 TID PRN d/c Seroquel Psych recs Xanax 0.25 BID PRN for anxiety, signed off. 7.Hypokalemia resolved K 4.2 Monitor via daily BMP 8.Hx of cervical cancer Medical records request faxed to [facility] (per daughter, this is where pt received chemotherapy for cervical cancer) f/u outpt gyne 9.Hx of HTN Lisinopril 20mg daily GI ppx PTX DVT ppx heparin sc Dispo: Cont inpatient management patient refused CT of head again s/p Ativan 2 IVP. Cipro, Xanax, iron, lisinopril at time of d/c. Patient continues to refuse CT. Psychiatry recommended Xanax .25 BID for anxiety and signed off. Recommended that she should follow up with [facility] mental health clinic. Pt examined, reviewed, and discussed with attending Myke Pope PGY-1 <Ines Peterson - Last Filed: 09/12/16 20:09> Objective - Vital Signs/Intake and Output Vital Signs (last 24 hours): Temp Pulse Resp BP Pulse Ox 98.1 F 84 17 139/91 H 98 09/12/16 12:00 09/12/16 18:00 09/12/16 12:00 09/12/16 12:00 09/12/16 09:00 Intake and Output: 09/12/16 09/13/16 18:59 06:59 Intake Total 720 Output Total 1200 Balance -480 - Medications Medications: Current Medications Alprazolam (Xanax) 0.25 mg PO BID PRN; Protocol PRN Reason: Anxiety Stop: 09/19/16 18:01 Aspirin (Aspirin Chewable) 81 mg PO DAILY [facility] Last Admin: 09/12/16 10:15 Dose: 81 mg Ferrous Sulfate (Feosol) 324 mg PO TID [facility] Last Admin: 09/12/16 17:14 Dose: 324 mg Heparin Sodium (Porcine) (Heparin) 5,000 units SC Q12 [facility] PRN Reason: Protocol Last Admin: 09/12/16 10:14 Dose: 5,000 units Ceftriaxone Sodium (Rocephin 1 Gram Ivpb) 1 gm in 100 mls @ 100 mls/hr IVPB DAILY [facility] PRN Reason: Protocol Last Admin: 09/12/16 10:14 Dose: 100 mls/hr Ibuprofen (Motrin Tab) 600 mg PO Q6H PRN PRN Reason: Pain, moderate (4-7) Last Admin: 09/12/16 07:55 Dose: 600 mg Lisinopril (Zestril) 20 mg PO DAILY [facility] Last Admin: 09/12/16 10:14 Dose: 20 mg Pantoprazole Sodium (Protonix Ec Tab) 40 mg PO ACB [facility] Last Admin: 09/12/16 07:55 Dose: 40 mg - Labs Labs: 09/12/16 07:30 09/12/16 07:30 PT 11.4 Seconds (9.9-11.8) 09/10/16 03:04 INR 1.06 (0.93-1.08) 09/10/16 03:04 APTT 26.5 Seconds (23.7-30.8) 09/10/16 03:04 Attending/Attestation - Attestation I have personally seen and examined this patient.: Yes I have fully participated in the care of the patient.: Yes I have reviewed all pertinent clinical information, including history, physical exam and plan: Yes Notes (Text): I have seen and examined patient at bedside. Agree with the above note with the following additions/ exception: Briefly this is 55 year old female with past medical history of hypertension, anxiety and cervical cancer who presented with complaint of chest pain, shortness of breath, suprapubic pain and bilateral LE pain. Serial cardiac enzymes were negative. D-dimer was elevated. LE doppler was negative. Recent CT angio done in [facility] was negative. Echocardiogram was reviewed. Cardiology is following. She is on antibiotics for UTI. Utox was positive for cocaine and benzodiazepines. She counselled on risks of continued substance abuse. She is on po iron for anemia. She is on lisinopril for hypertension. She has some facial weakness / confusion at times. She reports history of CVA in the past so CT head is ordered. Patient refused CT due to claustrophobia even after getting ativan. Psychiatry evaluation appreciated. Dr Ines Peterson
--- NOTE | 2016-09-12 18:30 | CT ---
PROCEDURE: CT HEAD WITHOUT CONTRAST. HISTORY: r/o CVA COMPARISON: None available. TECHNIQUE: Axial computed tomography images were obtained through the head/brain without intravenous contrast. Radiation dose: Total exam DLP = 725.84 mGy-cm. This CT exam was performed using one or more of the following dose reduction techniques: Automated exposure control, adjustment of the mA and/or kV according to patient size, and/or use of iterative reconstruction technique. FINDINGS: HEMORRHAGE: No intracranial hemorrhage. BRAIN: Diffuse atrophy with prominence of the ventricles and sulci noted. No mass effect or edema. Bilateral chronic appearing lacunar infarcts. Scattered periventricular and subcortical white matter hypodensities, which are nonspecific, but often seen with chronic microvascular ischemic disease. Please note that MRI with diffusion imaging is more sensitive in the detection of acute ischemic event. VENTRICLES: No hydrocephalus. CALVARIUM: Unremarkable. PARANASAL SINUSES: Unremarkable as visualized. No significant inflammatory changes. MASTOID AIR CELLS: Unremarkable as visualized. No inflammatory changes. OTHER FINDINGS: Postsurgical changes, left lobe. IMPRESSION: Generalized atrophy. Nonspecific white matter changes. Bilateral chronic appearing lacunar infarcts.
[2016-09-13 05:42] VITALS: O2SAT 96
[2016-09-13 07:08] LABS: ALB/GLOB RATIO 1.1 (1.1-1.8); ALBUMIN 3.5 g/dL (3.0-4.8); ALT/SGPT 30 U/L (7-56); AST/SGOT 28 U/L (15-39); BLOOD UREA NITROGEN 16 mg/dL (7-21); CALCIUM 9.5 mg/dL (8.4-10.5); GFR AFRICAN-AMERICAN > 60; GFR NON-AFRICAN AMERICAN 57
[2016-09-13 07:12] LABS: BASO # 0.01 K/mm3 (0.0-2.0); BASO % 0.3 % (0.0-3.0); EOS # 0.1 (0.0-0.7); EOS % 2.9 % (1.5-5.0); GRAN # 2.21 (1.4-6.5); GRAN % 64.3 % (50.0-68.0); HEMOGLOBIN 10.7 gm/dL (12.0-16.0); LYMPH # 0.6 (1.2-3.4); LYMPH % 17.7 % (22.0-35.0); MEAN CELL VOLUME 88.8 fL (80.0-105.0); MEAN CORPUSCULAR HGB CONC 33.8 g/dl (31.0-37.0); MONO # 0.5 (0.1-0.6); MONO % 14.8 % (1.0-6.0); PLATELET COUNT 251 10^3/uL (120.0-450.0); RBC 3.57 10^6/uL (3.5-6.1); RED CELL DISTRIBUTION WIDTH 15.6 % (11.5-14.5); WHITE BLOOD COUNT 3.4 10^3/ul (4.5-11.0)
[2016-09-13] MEDS: Pantoprazole 40 mg EC Tab PO SCH (09:47)
[2016-09-13] MEDS: cefTRIAXone 1 gm 1 GM/100 ML BAG IVPB SCH (09:48)
[2016-09-13 12:04] VITALS: BP 127/88; PULSE 79; RESP 18; TEMP 98.2
--- NOTE | 2016-09-13 12:21 | CP.PCM.CON ---
History of Present Illness - History of Present Illness History of Present Illness: Mrs. He is a 55-year-old woman with a past medical history of ischemic stroke resulting in residual left side weakness and sensory deficits, who states that she was walking outside yesterday and felt dizzy, light-headed and presented to the ED. Currently, she does not feel that her weakness is any different than her baseline. She does complain of left facial anesthesia and constant pain. She denies current nausea, vomiting, headache, chest pain, SOB, or new weakness. There were no acute events overnight. The patient lives in [place], [place] and was here visiting for a family reunion. She says that she usually takes aspirin and has other medications that were missed because she did not bring her medications with her. Review of Systems - Review of Systems All systems: reviewed and no additional remarkable complaints except Past Patient History - Past Social History Smoking Status: Never Smoked - CARDIAC Hx Hypertension: Yes - PULMONARY Hx Respiratory Disorders: No - NEUROLOGICAL Hx Neurological Disorder: Yes HX Cerebrovascular Accident: Yes (x2 L side weakness as per pt) - HEENT Hx HEENT Problems: No - RENAL Hx Chronic Kidney Disease: No - ENDOCRINE/METABOLIC Hx Endocrine Disorders: No - HEMATOLOGICAL/ONCOLOGICAL Hx Cancer: Yes (cervical had hyst) Hx Chemotherapy: Yes (currently receiving chemo) - INTEGUMENTARY Hx Dermatological Problems: No - MUSCULOSKELETAL/RHEUMATOLOGICAL Hx Falls: No - GASTROINTESTINAL Hx Gastrointestinal Disorders: No - GENITOURINARY/GYNECOLOGICAL Hx Genitourinary Disorders: No - PSYCHIATRIC Hx Substance Use: No - SURGICAL HISTORY Hx Surgeries: Yes (rcw pac) Hx Hysterectomy: Yes (cervical ca) - ANESTHESIA Hx Anesthesia: No Meds Allergies/Adverse Reactions: Allergies Allergy/AdvReac Type Severity Reaction Status Date / Time No Known Allergies Allergy Verified 09/10/16 02:01 - Medications Medications: Current Medications Alprazolam (Xanax) 0.25 mg PO BID PRN; Protocol PRN Reason: Anxiety Stop: 09/19/16 18:01 Aspirin (Aspirin Chewable) 81 mg PO DAILY [facility] Last Admin: 09/13/16 09:47 Dose: 81 mg Ferrous Sulfate (Feosol) 324 mg PO TID [facility] Last Admin: 09/13/16 09:47 Dose: 324 mg Heparin Sodium (Porcine) (Heparin) 5,000 units SC Q12 [facility] PRN Reason: Protocol Last Admin: 09/13/16 09:48 Dose: 5,000 units Ceftriaxone Sodium (Rocephin 1 Gram Ivpb) 1 gm in 100 mls @ 100 mls/hr IVPB DAILY [facility] PRN Reason: Protocol Last Admin: 09/13/16 09:48 Dose: 100 mls/hr Ibuprofen (Motrin Tab) 600 mg PO Q6H PRN PRN Reason: Pain, moderate (4-7) Last Admin: 09/13/16 09:52 Dose: 600 mg Lisinopril (Zestril) 20 mg PO DAILY [facility] Last Admin: 09/13/16 09:48 Dose: 20 mg Pantoprazole Sodium (Protonix Ec Tab) 40 mg PO ACB [facility] Last Admin: 09/13/16 09:47 Dose: 40 mg Physical Exam - Constitutional Appears: Well - Head Exam Head Exam: ATRAUMATIC, NORMAL INSPECTION, NORMOCEPHALIC - Eye Exam Eye Exam: EOMI, Normal appearance, PERRL - ENT Exam ENT Exam: Mucous Membranes Moist, Normal Exam - Neck Exam Neck exam: Positive for: Normal Inspection - Respiratory Exam Respiratory Exam: Clear to Auscultation Bilateral, NORMAL BREATHING PATTERN - Cardiovascular Exam Cardiovascular Exam: REGULAR RHYTHM, +S1, +S2 - GI/Abdominal Exam GI & Abdominal Exam: Normal Bowel Sounds, Soft. absent: Tenderness - Rectal Exam Rectal Exam: Deferred - Extremities Exam Extremities exam: Positive for: normal inspection - Back Exam Back exam: NORMAL INSPECTION - Neurological Exam Neurological exam: Abnormal Gait, CN II-XII Intact, Oriented x3 Additional comments: Anesthesia and allodynia over the left side of the face. Reflexes are brisk on the left side. She has decreased sensation over the left side of the face to LT /P. She has equivocal plantar response on the left. Gait was slow and wide based as if she was trying to maintain balance. - Psychiatric Exam Psychiatric exam: Anxious, Normal Affect, Normal Mood - Skin Skin Exam: Dry, Intact, Normal Color, Warm Results - Vital Signs Recent Vital Signs: Last Vital Signs Temp 97.7 F 09/13/16 05:42 Pulse 77 09/13/16 10:00 Resp 20 09/13/16 05:42 BP 125/82 09/13/16 09:48 Pulse Ox 96 09/13/16 05:42 - Labs Result Diagrams: 09/13/16 06:41 09/13/16 06:41 Labs: Laboratory Results - last 24 hr 09/13/16 09/13/16 06:41 06:41 WBC 3.4 L RBC 3.57 Hgb 10.7 L Hct 31.7 L MCV 88.8 MCH 30.0 MCHC 33.8 RDW 15.6 H Plt Count 251 MPV 10.0 Gran % 64.3 Lymph % (Auto) 17.7 L [place] % (Auto) 14.8 H Eos % (Auto) 2.9 Baso % (Auto) 0.3 Gran # 2.21 Lymph # 0.6 L [place] # 0.5 Eos # 0.1 Baso # 0.01 Sodium 141 Potassium 4.1 Chloride 111 H Carbon Dioxide 22 Anion Gap 12 BUN 16 Creatinine 1.0 Est GFR ( Amer) > 60 Est GFR (Non-Af Amer) 57 Random Glucose 97 Calcium 9.5 Total Bilirubin 0.4 AST 28 ALT 30 Alkaline Phosphatase 88 Total Protein 6.8 Albumin 3.5 Globulin 3.3 Albumin/Globulin Ratio 1.1 - Imaging and Cardiology CT scan - head Status: Image reviewed by me, Report reviewed by me (Chronic bilateral thalamic and basal ganglia strokes) Assessment & Plan (1) Dizziness Assessment and Plan: No acute neurologic deficits. I recommend secondary stroke prevention with aspirin 81 mg daily, lipitor 40 mg daily. Labs: check lipid panel, HbA1c, B12, folate, TSH. She should be well hydrated with NS at 100 mL/hr. PT/OT eval and treat. Thank you. Status: Acute Priority: High
--- NOTE | 2016-09-13 14:27 | CP.PCM.DIS ---
<Myke Pope - Last Filed: 09/13/16 17:20> Provider - Provider Date of Admission: 09/12/16 16:24 Attending physician: Ines Peterson MD Consults: Cardio - Dr. Johnson Neuro - Dr. Mccabe Psych - Dr. Groves Time Spent in preparation of Discharge (in minutes): 40 Hospital Course - Lab Results Lab Results: Most Recent Lab Values WBC 3.4 10^3/ul (4.5-11.0) L 09/13/16 06:41 RBC 3.57 10^6/uL (3.5-6.1) 09/13/16 06:41 Hgb 10.7 gm/dL (12.0-16.0) L 09/13/16 06:41 Hct 31.7 % (36.0-48.0) L 09/13/16 06:41 MCV 88.8 fL (80.0-105.0) 09/13/16 06:41 MCH 30.0 pg (25.0-35.0) 09/13/16 06:41 MCHC 33.8 g/dl (31.0-37.0) 09/13/16 06:41 RDW 15.6 % (11.5-14.5) H 09/13/16 06:41 Plt Count 251 10^3/uL (120.0-450.0) 09/13/16 06:41 MPV 10.0 fl (7.0-11.0) 09/13/16 06:41 Gran % 64.3 % (50.0-68.0) 09/13/16 06:41 Lymph % (Auto) 17.7 % (22.0-35.0) L 09/13/16 06:41 [place] % (Auto) 14.8 % (1.0-6.0) H 09/13/16 06:41 Eos % (Auto) 2.9 % (1.5-5.0) 09/13/16 06:41 Baso % (Auto) 0.3 % (0.0-3.0) 09/13/16 06:41 Gran # 2.21 (1.4-6.5) 09/13/16 06:41 Lymph # 0.6 (1.2-3.4) L 09/13/16 06:41 [place] # 0.5 (0.1-0.6) 09/13/16 06:41 Eos # 0.1 (0.0-0.7) 09/13/16 06:41 Baso # 0.01 K/mm3 (0.0-2.0) 09/13/16 06:41 PT 11.4 Seconds (9.9-11.8) 09/10/16 03:04 INR 1.06 (0.93-1.08) 09/10/16 03:04 APTT 26.5 Seconds (23.7-30.8) 09/10/16 03:04 D-Dimer, Quantitative 1.52 mg/L FEU (0-0.50) H 09/10/16 03:04 Sodium 141 mmol/L (132-148) 09/13/16 06:41 Potassium 4.1 mmol/L (3.6-5.0) 09/13/16 06:41 Chloride 111 mmol/L (95-110) H 09/13/16 06:41 Carbon Dioxide 22 mmol/L (21-33) 09/13/16 06:41 Anion Gap 12 (10-20) 09/13/16 06:41 BUN 16 mg/dL (7-21) 09/13/16 06:41 Creatinine 1.0 mg/dL (0.5-1.4) 09/13/16 06:41 Est GFR ( Amer) > 60 09/13/16 06:41 Est GFR (Non-Af Amer) 57 09/13/16 06:41 Random Glucose 97 mg/dL (70-110) 09/13/16 06:41 Hemoglobin A1c 5.7 % (4.2-6.5) 09/10/16 07:30 Calcium 9.5 mg/dL (8.4-10.5) 09/13/16 06:41 Magnesium 1.8 mg/dL (1.7-2.2) 09/10/16 07:30 Iron 37 ug/dL (45-180) L 09/10/16 19:07 TIBC 263 ug/dL (265-497) L 09/10/16 19:07 % Saturation 14 % (20-55) L 09/10/16 19:07 Ferritin 86.0 ng/mL 09/10/16 07:30 Total Bilirubin 0.4 mg/dL (0.2-1.3) 09/13/16 06:41 AST 28 U/L (15-39) 09/13/16 06:41 ALT 30 U/L (7-56) 09/13/16 06:41 Alkaline Phosphatase 88 U/L (38-133) 09/13/16 06:41 Troponin I < 0.01 ng/mL 09/12/16 13:50 Total Protein 6.8 g/dL (5.8-8.3) 09/13/16 06:41 Albumin 3.5 g/dL (3.0-4.8) 09/13/16 06:41 Globulin 3.3 gm/dL 09/13/16 06:41 Albumin/Globulin Ratio 1.1 (1.1-1.8) 09/13/16 06:41 Triglycerides 58 mg/dL (35-160) 09/10/16 07:30 Cholesterol 104 mg/dL (130-200) L 09/10/16 07:30 LDL Cholesterol Direct 40 mg/dL (0-129) 09/10/16 07:30 HDL Cholesterol 40 mg/dL (29-60) 09/10/16 07:30 Vitamin B12 249 pg/mL (239-931) 09/10/16 07:30 Folate 7.2 ng/mL 09/10/16 07:30 TSH 3rd Generation 1.22 mIU/mL (0.46-4.68) 09/10/16 07:30 Urine Color Yellow (YELLOW) 09/10/16 15:11 Urine Appearance Sl cloudy (CLEAR) 09/10/16 15:11 Urine pH 6.0 (4.7-8.0) 09/10/16 15:11 Ur Specific [place] 1.020 (1.005-1.035) 09/10/16 15:11 Urine Protein Trace mg/dL (<30 mg/dL) H 09/10/16 15:11 Urine Glucose (UA) Negative mg/dL (NEGATIVE) 09/10/16 15:11 Urine Ketones Negative mg/dL (NEGATIVE) 09/10/16 15:11 Urine Blood Trace-intact (NEGATIVE) H 09/10/16 15:11 Urine Nitrate Negative (NEGATIVE) 09/10/16 15:11 Urine Bilirubin Negative (NEGATIVE) 09/10/16 15:11 Urine Urobilinogen 1.0 E.U./dL (<1 E.U./dL) H 09/10/16 15:11 Ur Leukocyte Esterase Large [place]/uL (NEGATIVE) H 09/10/16 15:11 Urine RBC 0 - 2 /hpf (0-2) 09/10/16 15:11 Urine WBC Tntc /hpf (0-6) 09/10/16 15:11 Ur Epithelial Cells 6 - 8 /hpf (0-5) 09/10/16 15:11 Urine Bacteria Few (NEG) 09/10/16 15:11 Urine Opiates Screen Negative (NEGATIVE) 09/10/16 15:11 Urine Methadone Screen Negative (NEGATIVE) 09/10/16 15:11 Ur Barbiturates Screen Negative (NEGATIVE) 09/10/16 15:11 Ur Phencyclidine Scrn Negative (NEGATIVE) 09/10/16 15:11 Ur Amphetamines Screen Negative (NEGATIVE) 09/10/16 15:11 U Benzodiazepines Scrn Positive (NEGATIVE) H 09/10/16 15:11 U Oth Cocaine Metabols Positive (NEGATIVE) H 09/10/16 15:11 U Cannabinoids Screen Negative (NEGATIVE) 09/10/16 15:11 Alcohol, Quantitative < 10 mg/dL (0-10) 09/10/16 07:30 - Hospital Course Hospital Course: This patient is a 55 year old female with a PMHx of htn, cervical cancer, and cocaine abuse who was admitted for evaluation and treatment of b/l lower extremity pain, chest pain, and SOB. Patient was very inconsistent with physical exam throughout stay so findings on exam were unreliable. Patients SOB resolved without intervention. Chest pain was likely 2/2 to cocaine abuse. Patient was given 600mg motrin to treat LE pain, which improved during stay. EKG Study shown below. Patient refused CT multiple times but eventually agreed to head CT (findings below). Patient was found to have UTI during stay which was being treated with Rocephin. Cardio, neuro, and psychiatry were consulted during the stay. Patient was cleared by all consults. The patients daughter was called to further investigate history of patient. Daughter stated that patient was not living with her due to cocaine abuse around children. Patient was also found to be anemic during stay and was supplanted with iron. Daughter also stated that patient is a frequent liar but confirmed her prior 2 CVAs. She was counseled on drug cessation, and told about the risk in relation to her symptoms on admission. Patient eloped before discharge planning concluded. D-dimer: Elevated. Past records from [facility] showed no evidence of PE on CTA CT of Head: Showed no acute finds. Showed generalized atrophy, nonspecific white matter changes, and b/l appearing lacunar infarcts. UDS: positive for coccain and benzodiazepines LE Ultrasound: negative fore DVT EKG: sinus rhythm; no abnormalities - Date & Time of H&P Date of H&P: 09/13/16 Time of H&P: 17:22 Discharge Exam - Head Exam Head Exam: ATRAUMATIC, NORMAL INSPECTION, NORMOCEPHALIC - Eye Exam Eye Exam: absent: EOMI - Respiratory Exam Respiratory Exam: Clear to PA & Lateral, NORMAL BREATHING PATTERN. absent: Rales, Rhonchi, Wheezes, Respiratory Distress, Stridor - Cardiovascular Exam Cardiovascular Exam: RRR, +S1, +S2 - GI/Abdominal Exam GI & Abdominal Exam: Normal Bowel Sounds, Soft. absent: Organomegaly, Tenderness - Exam Exam: Circumcision, NORMAL INSPECTION External exam: NORMAL EXTERNAL EXAM - Neurological Exam Additional comments: Patient had intermittent left facial sensory loss and facial droop. Intermittent loss of left horizontal gaze. Findings are unreliable. - Psychiatric Exam Psychiatric exam: Anxious - Skin Skin Exam: Dry, Intact, Normal Color, Warm Discharge Plan - Discharge Medications Prescriptions: Aspirin [Aspirin Chewable] 81 mg PO DAILY #30 Atorvastatin [Lipitor] 10 mg PO DIN #30 tab Cefpodoxime [Vantin] 200 mg PO BID #10 tab Lisinopril [Zestril] 20 mg PO DAILY #30 tab - Follow Up Plan Condition: STABLE Disposition: AGAINST MEDICAL ADVICE <Ines Peterson - Last Filed: 09/15/16 17:25> Provider - Provider Date of Admission: 09/12/16 16:24 Attending physician: Ines Peterson MD Hospital Course - Lab Results Lab Results: Most Recent Lab Values WBC 3.4 10^3/ul (4.5-11.0) L 09/13/16 06:41 RBC 3.57 10^6/uL (3.5-6.1) 09/13/16 06:41 Hgb 10.7 gm/dL (12.0-16.0) L 09/13/16 06:41 Hct 31.7 % (36.0-48.0) L 09/13/16 06:41 MCV 88.8 fL (80.0-105.0) 09/13/16 06:41 MCH 30.0 pg (25.0-35.0) 09/13/16 06:41 MCHC 33.8 g/dl (31.0-37.0) 09/13/16 06:41 RDW 15.6 % (11.5-14.5) H 09/13/16 06:41 Plt Count 251 10^3/uL (120.0-450.0) 09/13/16 06:41 MPV 10.0 fl (7.0-11.0) 09/13/16 06:41 Gran % 64.3 % (50.0-68.0) 09/13/16 06:41 Lymph % (Auto) 17.7 % (22.0-35.0) L 09/13/16 06:41 [place] % (Auto) 14.8 % (1.0-6.0) H 09/13/16 06:41 Eos % (Auto) 2.9 % (1.5-5.0) 09/13/16 06:41 Baso % (Auto) 0.3 % (0.0-3.0) 09/13/16 06:41 Gran # 2.21 (1.4-6.5) 09/13/16 06:41 Lymph # 0.6 (1.2-3.4) L 09/13/16 06:41 [place] # 0.5 (0.1-0.6) 09/13/16 06:41 Eos # 0.1 (0.0-0.7) 09/13/16 06:41 Baso # 0.01 K/mm3 (0.0-2.0) 09/13/16 06:41 PT 11.4 Seconds (9.9-11.8) 09/10/16 03:04 INR 1.06 (0.93-1.08) 09/10/16 03:04 APTT 26.5 Seconds (23.7-30.8) 09/10/16 03:04 D-Dimer, Quantitative 1.52 mg/L FEU (0-0.50) H 09/10/16 03:04 Sodium 141 mmol/L (132-148) 09/13/16 06:41 Potassium 4.1 mmol/L (3.6-5.0) 09/13/16 06:41 Chloride 111 mmol/L (95-110) H 09/13/16 06:41 Carbon Dioxide 22 mmol/L (21-33) 09/13/16 06:41 Anion Gap 12 (10-20) 09/13/16 06:41 BUN 16 mg/dL (7-21) 09/13/16 06:41 Creatinine 1.0 mg/dL (0.5-1.4) 09/13/16 06:41 Est GFR ( Amer) > 60 09/13/16 06:41 Est GFR (Non-Af Amer) 57 09/13/16 06:41 Random Glucose 97 mg/dL (70-110) 09/13/16 06:41 Hemoglobin A1c 5.7 % (4.2-6.5) 09/10/16 07:30 Calcium 9.5 mg/dL (8.4-10.5) 09/13/16 06:41 Magnesium 1.8 mg/dL (1.7-2.2) 09/10/16 07:30 Iron 37 ug/dL (45-180) L 09/10/16 19:07 TIBC 263 ug/dL (265-497) L 09/10/16 19:07 % Saturation 14 % (20-55) L 09/10/16 19:07 Ferritin 86.0 ng/mL 09/10/16 07:30 Total Bilirubin 0.4 mg/dL (0.2-1.3) 09/13/16 06:41 AST 28 U/L (15-39) 09/13/16 06:41 ALT 30 U/L (7-56) 09/13/16 06:41 Alkaline Phosphatase 88 U/L (38-133) 09/13/16 06:41 Troponin I < 0.01 ng/mL 09/12/16 13:50 Total Protein 6.8 g/dL (5.8-8.3) 09/13/16 06:41 Albumin 3.5 g/dL (3.0-4.8) 09/13/16 06:41 Globulin 3.3 gm/dL 09/13/16 06:41 Albumin/Globulin Ratio 1.1 (1.1-1.8) 09/13/16 06:41 Triglycerides 58 mg/dL (35-160) 09/10/16 07:30 Cholesterol 104 mg/dL (130-200) L 09/10/16 07:30 LDL Cholesterol Direct 40 mg/dL (0-129) 09/10/16 07:30 HDL Cholesterol 40 mg/dL (29-60) 09/10/16 07:30 Vitamin B12 249 pg/mL (239-931) 09/10/16 07:30 Folate 7.2 ng/mL 09/10/16 07:30 TSH 3rd Generation 1.22 mIU/mL (0.46-4.68) 09/10/16 07:30 Urine Color Yellow (YELLOW) 09/10/16 15:11 Urine Appearance Sl cloudy (CLEAR) 09/10/16 15:11 Urine pH 6.0 (4.7-8.0) 09/10/16 15:11 Ur Specific [place] 1.020 (1.005-1.035) 09/10/16 15:11 Urine Protein Trace mg/dL (<30 mg/dL) H 09/10/16 15:11 Urine Glucose (UA) Negative mg/dL (NEGATIVE) 09/10/16 15:11 Urine Ketones Negative mg/dL (NEGATIVE) 09/10/16 15:11 Urine Blood Trace-intact (NEGATIVE) H 09/10/16 15:11 Urine Nitrate Negative (NEGATIVE) 09/10/16 15:11 Urine Bilirubin Negative (NEGATIVE) 09/10/16 15:11 Urine Urobilinogen 1.0 E.U./dL (<1 E.U./dL) H 09/10/16 15:11 Ur Leukocyte Esterase Large [place]/uL (NEGATIVE) H 09/10/16 15:11 Urine RBC 0 - 2 /hpf (0-2) 09/10/16 15:11 Urine WBC Tntc /hpf (0-6) 09/10/16 15:11 Ur Epithelial Cells 6 - 8 /hpf (0-5) 09/10/16 15:11 Urine Bacteria Few (NEG) 09/10/16 15:11 Urine Opiates Screen Negative (NEGATIVE) 09/10/16 15:11 Urine Methadone Screen Negative (NEGATIVE) 09/10/16 15:11 Ur Barbiturates Screen Negative (NEGATIVE) 09/10/16 15:11 Ur Phencyclidine Scrn Negative (NEGATIVE) 09/10/16 15:11 Ur Amphetamines Screen Negative (NEGATIVE) 09/10/16 15:11 U Benzodiazepines Scrn Positive (NEGATIVE) H 09/10/16 15:11 U Oth Cocaine Metabols Positive (NEGATIVE) H 09/10/16 15:11 U Cannabinoids Screen Negative (NEGATIVE) 09/10/16 15:11 Alcohol, Quantitative < 10 mg/dL (0-10) 09/10/16 07:30 Attending/Attestation - Attestation I have personally seen and examined this patient.: Yes I have fully participated in the care of the patient.: Yes I have reviewed all pertinent clinical information, including history, physical exam and plan: Yes Notes (Text): I have seen and examined patient at bedside. Agree with the above note with the following additions/ exception: Briefly this is 55 year old female with past medical history of hypertension, anxiety and cervical cancer who presented with complaint of chest pain, shortness of breath, suprapubic pain and bilateral LE pain. Serial cardiac enzymes were negative. D-dimer was elevated. LE doppler was negative. Recent CT angio done in [facility] was negative. Echocardiogram was reviewed. She is on antibiotics for UTI. Utox was positive for cocaine and benzodiazepines. She counselled on risks of continued substance abuse. She is on po iron for anemia. She is on lisinopril for hypertension. Patient does not have neurological deficits at this time.Advised patient to continue aspirin and lipitor. There were lot of social issues. SW help appreciated. Please refer to SW note for details. Pateint eloped and did not take or sign discharge papers. She also did not take medication scripts. Dr Ines Peterson
== END 2016-09-13 15:09 | disposition left against medical advice (07) | DRG 746 ==
LOC: ED 01:44 → ERH 05:18 → 2RSO 07:07 → OBSVTOIN 09-12 16:24
PROVIDERS: ADMIT Internal Medicine; ATTEND Hospitalist
DX: F14.10 Cocaine abuse, uncomplicated (principal); I10 Essential (primary) hypertension; N39.0 Urinary tract infection, site not specified; E87.6 Hypokalemia; Z86.73 Personal history of transient ischemic attack (TIA), and cerebral infarction without residual deficits; Z85.41 Personal history of malignant neoplasm of cervix uteri; D64.9 Anemia, unspecified; F17.200 Nicotine dependence, unspecified, uncomplicated; F41.9 Anxiety disorder, unspecified; R07.89 Other chest pain

== ENCOUNTER 2016-11-04 22:36 | Observation (INO) | payer MEDICAID, OTHER ==
[2016-11-04 22:37] VITALS: BMI 25.5
--- NOTE | 2016-11-04 23:00 | EDPD ---
HPI Stroke - General Time Seen by Provider: 11/04/16 22:56 Chief Complaint: Weakness/Neurological Deficit Historian: Patient - History of Present Illness Narrative History of Present Illness (Free Text): 11/04/16 23:00 [place] He is a 56 year old female, whose past medical history includes cervical cancer, 3 CVAs with residual left-sided weakness, hypertension, and anxiety, who presents to the ED brought in by EMS complaining of left-sided weakness. Patient states earlier today she was [place] [facility] and was [place]. Patient walked from [facility] and was picked up by EMS complaining of a possible stroke.Patient states she has been experiencing left upper extremity pain with left lower extremity numbness. Patient has a history of chronic residual weakness from previous stroke. Patient denies any vision changes, headache, shortness of breath, abdominal pain, nausea, vomiting, back pain, neck pain, or any other complaints. Date:: 11/04/16 Time: 23:00 Onset:: Today Timing: Currently Symptomatic Context: Walking Associated Symptoms: Numbness (Left lower extremity weakness), Pain (Left upper extremity pain) Exacerbated by: Nothing Relieved by: Nothing - Location Locate Left: Lower extremity rTPA Inclusion/Exclusion - Refusal of Treatment Patient Refused Treatment: Yes - Inclusion Criteria for Altepase Patient is 18 years or Older: Yes The Clinical Diagnosis of Ischemic Stroke That is Causing a Potentially Disabling Neurological Deficit: No Time of Onset is Well Established to be Less Than 270 Minute Before Treatment Would Begin: No Risk/Benefit Discussed With Patient/Family Member Present: Yes - Exclusion Criteria for Altepase Uncontrolled Hypertension at Time of Treatment (Systolic BP above 185 or Diastolic BP above 110 mmHg): No Active Internal Bleeding: No Known Bleeding Diathesis Including but Not Limited to: Platelets Below 100,000/ mm,PTT Above 40 sec After Heparin Use, Current Use of Oral Anitcoagulant With INR Greater Than 1.7 or PT Greater Than 15 secs: No Evidence of an Intracranial Hemorrhage: No Evidence of Major Acute Infarct With Signs Greater Than 1/3 MCA Territory: No Suspicion of Subarachnoid Hemorrhage on Pretreatment Evaluation Even if CT Head Negative For Hemorrhage: No - Warning to TPA With Conditions Following Conditions Weighed Against Anticipated Benefit: Yes Condition: Stroke Serevity Too Mild Additional Condition (For 3-4.5 Hour Window): Prior Stroke and Diabetes Past Medical History - Provider Review Nursing Documentation Reviewed: Yes - Infectious Disease Hx of Infectious Diseases: None - Reproductive Menopause: No - Cardiac Hx Hypertension: Yes - Pulmonary Hx Respiratory Disorders: No - Neurological Hx Neurological Disorder: Yes HX Cerebrovascular Accident: Yes (x2 L side weakness as per pt) - HEENT Hx HEENT Disorder: No - Renal Hx Renal Disorder: No - Endocrine/Metabolic Hx Endocrine Disorders: No - Hematological/Oncological Hx Cancer: Yes (cervical had hyst) Hx Chemotherapy: Yes (currently receiving chemo) - Integumentary Hx Dermatological Disorder: No - Musculoskeletal/Rheumatological Hx Falls: No - Gastrointestinal Hx Gastrointestinal Disorders: No - Genitourinary/Gynecological Hx Genitourinary Disorders: No - Psychiatric Hx Anxiety: Yes Hx Substance Use: No - Surgical History Hx Hysterectomy: Yes (cervical ca) - Anesthesia Hx Anesthesia: No Family/Social History - Family/Social History Family History: Non-Contributory - DrYakov Review Nursing documentation reviewed.: Yes Allergies/Home Meds Allergies/Adverse Reactions: Allergies Penicillins Allergy (Verified 11/04/16 22:53) SHORTNESS OF BREATH Review of Systems - Physician Review All systems were reviewed & negative as marked: Yes - Review of Systems Constitutional: Normal. absent: Fevers Eyes: Normal ENT: Normal Respiratory: Normal. absent: SOB, Cough Cardiovascular: Normal. absent: Chest Pain Gastrointestinal: Normal. absent: Abdominal Pain, Diarrhea, Nausea, Vomiting Genitourinary Female: Normal. absent: Dysuria, Frequency, Hematuria, Urine Output Changes Musculoskeletal: Normal. absent: Back Pain, Neck Pain Skin: Normal Neurological: Focal Weakness (+left lower extremity weakness, +left upper extremity pain) Endocrine: Normal Hemo/Lymphatic: Normal Psychiatric: Normal ED Stroke Physical Exam Vital Signs Reviewed: Yes Temperature: Afebrile Blood Pressure: Normal Pulse: Regular Respiratory Rate: Normal Appearance: Positive for: Well-Appearing, Non-Toxic, Comfortable Pain Distress: None Mental Status: Positive for: Alert and Oriented X 3 - Systems Exam Head: Present: Atraumatic, Normocephalic Pupils: Present: PERRL Extroacular Muscles: Present: EOMI Conjunctiva: Present: Normal Mouth: Present: Moist Mucous Membranes Neck: Present: Normal Range of Motion Respiratory/Chest: Present: Clear to Auscultation, Good Air Exchange. No: Respiratory Distress, Accessory Muscle Use Cardiovascular: Present: Regular Rate and Rhythm, Normal S1, S2. No: Murmurs Abdomen: Present: Normal Bowel Sounds. No: Tenderness, Distention, Peritoneal Signs Upper Extremity: No: Cyanosis, Edema Lower Extremity: No: Edema Neurologic: Present: Speech Normal, Memory Normal, Other (Chronic left upper and left lower paresis). No: Normal Sensory Function (Decreased sensation to left foot) Skin: Present: Warm, Dry, Normal Color. No: Rashes Psychiatric: Present: Alert, Oriented x 3, Normal Insight, Normal Concentration Medical Decision Making ED Course and Treatment: 11/04/16 23:00 Impression: 56 year old female c/o left upper extremity pain and left lower extremity weakness. Plan: -- CT Head w/o contrast -- EKG -- CXR -- Labs, blood type and screen, troponin, lipid panel -- Reassess and disposition Progress Notes: 11/04/16 23:00 Code Stroke called. 11/04/16 23:[address] Dickson Peterson, neurologist recreational counselor, who is aware and agrees with plan. 11/04/16 23:[address] scan and CXR. 11/05/16 01:59 Reviewed EKG, NSR at [address] segment elevation or depression, no T wave inversions, normal intervals. 11/05/16 03:50 Case discussed with medical legal investigator recreational counselor, who is aware and agrees with plan. Case discussed with Dr. Hays, who is aware and agrees with plan. Accepts pt in to hospitalist service. Pt will go to Telemetry observation for chest pain and history of CVA. Pt eventually agreed to undergoing CT scan and XR study. 11/05/16 05:40 Reviewed radiology, XR Left Forearm show no acute processes/fracture. XR Left shoulder shows no acute processes/fracture. CT Head shows: LIMITATIONS: Mild streak/motion artifact. - No acute findings seen within the brain. - Findings compatible with bilateral old/chronic lacunar infarcts. - See above for remaining findings. - Lab Interpretations I have reviewed the lab results: Yes - RAD Interpretation Narrative RAD Interpretations (Text): CT Head shows: LIMITATIONS: Mild streak/motion artifact. BRAIN: Stable appearance of multiple focal areas of low density in the basal ganglia bilaterally, most compatible with multiple, bilateral old/chronic lacunar infarcts. Areas of hypodensity seen in the white matter bilaterally, nonspecific in appearance, but most likely representing chronic small vessel ischemic changes, in a patient of this age. No significant acute abnormality identified. Diffuse, age-related cortical atrophy and ventriculomegaly. No acute hemorrhage seen within the brain. No acute extra- axial fluid collections visualized. No evidence of significant mass effect within the brain. No CT findings to suggest an acute, large territorial infarct, however, small or early acute infarcts may not be visible on CT. VENTRICLES: See above. BONES/JOINTS: No acute fractures or other acute bony abnormality noted. SOFT TISSUES: No acute abnormality of the visualized soft tissues is seen. SINUSES: Small mucous retention cyst in the left maxillary sinus Remaining visualized paranasal sinuses appear clear. MASTOID AIR CELLS: Mastoid air cells appear clear. ORBITS: Post operative changes involving the left orbit. IMPRESSION: - No acute findings seen within the brain. - Findings compatible with bilateral old/chronic lacunar infarcts. - See above for remaining findings. Staff Home Therapy Rn: ED Physician, Radiologist - EKG Interpretation Interpreted by ED Physician: Yes Type: 12 lead EKG - Scribe Statement The provider has reviewed the documentation as recorded by the Scribmichel Rdz All medical record entries made by the Scribe were at my direction and personally dictated by me. I have reviewed the chart and agree that the record accurately reflects my personal performance of the history, physical exam, medical decision making, and the department course for this patient. I have also personally directed, reviewed, and agree with the discharge instructions and disposition. NIHSS Scale (Metz) Time Performed: 23:00 - How Severe is the Stoke Baseline Level of Consciousness: 0=Alert LOC to Questions: 0=Both comments correct LOC to commands: 0=Obeys both correctly Best Gaze: 0=Normal Visual: 0=No visual loss Facial: 0=Normal Motor Arm - Left: 0=No drift Motor Arm - Right: 0=No drift Motor Leg - Left: 1=Drift before 5 sec Motor Leg - Right: 0=No drift Limb Ataxia: 0=Absent Sensory: 1=Mild to moderate loss Best Language: 0=No aphasia Dysarthia: 1=Mild to moderate slurring Extinction & Inattention (Neglect): 0=Normal, no object Score: 3 Risk Level: Minor Stroke Risk Disposition/Present on Arrival - Present on Arrival Any Indicators Present on Arrival: No History of DVT/PE: No History of Uncontrolled Diabetes: No Urinary Catheter: No History of Decub. Ulcer: No History Surgical Site Infection Following: None - Disposition Have Diagnosis and Disposition been Completed?: Yes Diagnosis: Chest pain, History of CVA (cerebrovascular accident) Disposition: HOSPITALIZED Disposition Time: 03:50 Patient Plan: Observation Patient Problems: Current Active Problems Problem Status Onset Chest pain Acute History of CVA (cerebrovascular accident) Acute Condition: STABLE
[2016-11-05 02:32] LABS: BASO # 0.01 K/mm3 (0.0-2.0); BASO % 0.2 % (0.0-3.0); EOS # 0.1 (0.0-0.7); EOS % 2.3 % (1.5-5.0); GRAN # 2.96 (1.4-6.5); GRAN % 68.1 % (50.0-68.0); HEMATOCRIT 26.5 % (36.0-48.0); LYMPH # 0.8 (1.2-3.4); LYMPH % 17.9 % (22.0-35.0); MEAN CELL VOLUME 85.8 fl (80.0-105.0); MEAN CORPUSCULAR HEMOGLOBIN 28.8 pg (25.0-35.0); MEAN CORPUSCULAR HGB CONC 33.6 g/dl (31.0-37.0); MONO # 0.5 (0.1-0.6); MONO % 11.5 % (1.0-6.0); RED CELL DISTRIBUTION WIDTH 15.5 % (11.5-14.5); WHITE BLOOD COUNT 4.4 10^3/ul (4.5-11.0)
[2016-11-05 02:39] LABS: ALB/GLOB RATIO 1.1 (1.1-1.8); BILIRUBIN,TOTAL 0.6 mg/dL (0.2-1.3); CALCIUM 9.6 mg/dL (8.4-10.5); POTASSIUM 3.4 mmol/L (3.6-5.0); TOTAL PROTEIN 7.6 g/dL (5.8-8.3)
[2016-11-05 02:42] LABS: INR 1.1 (0.93-1.08); PARTIAL THROMBOPLASTIN TIME 26.6 Seconds (23.7-30.8)
[2016-11-05 02:53] LABS: TROPONIN I 0.01 ng/mL
[2016-11-05] MEDS ORDERED: Potassium Chloride 20 mEq ER Tab PO STA (03:48)
--- NOTE | 2016-11-05 05:39 | CT ---
EXAM: CT Head Without Intravenous Contrast EXAM DATE/TIME: 11/04/2016 11:01 PM CLINICAL HISTORY: 56 years old, female; Signs and symptoms; Weakness, extremity; Additional info: Code stroke TECHNIQUE: Axial computed tomography images of the head/brain without intravenous contrast. All CT scans at this facility use one or more dose reduction techniques, viz.: automated exposure control; ma/kV adjustment per patient size (including targeted exams where dose is matched to indication; i.e. head); or iterative reconstruction technique. COMPARISON: Prior head CT of 09/12/2016 FINDINGS: LIMITATIONS: Mild streak/motion artifact. BRAIN: Stable appearance of multiple focal areas of low density in the basal ganglia bilaterally, most compatible with multiple, bilateral old/chronic lacunar infarcts. Areas of hypodensity seen in the white matter bilaterally, nonspecific in appearance, but most likely representing chronic small vessel ischemic changes, in a patient of this age. No significant acute abnormality identified. Diffuse, age-related cortical atrophy and ventriculomegaly. No acute hemorrhage seen within the brain. No acute extra-axial fluid collections visualized. No evidence of significant mass effect within the brain. No CT findings to suggest an acute, large territorial infarct, however, small or early acute infarcts may not be visible on CT. VENTRICLES: See above. BONES/JOINTS: No acute fractures or other acute bony abnormality noted. SOFT TISSUES: No acute abnormality of the visualized soft tissues is seen. SINUSES: Small mucous retention cyst in the left maxillary sinus Remaining visualized paranasal sinuses appear clear. MASTOID AIR CELLS: Mastoid air cells appear clear. ORBITS: Post operative changes involving the left orbit. IMPRESSION: - No acute findings seen within the brain. - Findings compatible with bilateral old/chronic lacunar infarcts. - See above for remaining findings.
[2016-11-05] MEDS ORDERED: Enoxaparin 40 mg Syringe IVP SCH (05:48)
--- NOTE | 2016-11-05 06:04 | CP.PCM.HP ---
<Hayden Gray - Last Filed: 11/05/16 06:42> History of Present Illness - History of Present Illness History of Present Illness: 56 year old female with PH of Cervical CA, CVA with residual left sided weakness , HTN and anxiety presents to the ED with what she says is inscreased weakness in her left arm and leg which she states started early this evening. She states she was [facility] [place] earlier today and was evaluated for chest pain and discharged. Patient denies any SOB, N/ V, F, Chills, CP, Palipitations, sweating. PMH: Cervical CA, HTN, anxiety, CVA with residual left sided weakness PSH: Hysterectomy Social: alcohol use occasional, quit tobacco use about 10 years ago Family hx: nothing significant Meds: cannot recalls Allergies: Penicillin (rash) Review of Systems - Constitutional Constitutional: As Per HPI - EENT Eyes: As Per HPI - Cardiovascular Cardiovascular: absent: Chest Pain Past Patient History - Infectious Disease Hx of Infectious Diseases: None - Past Social History Smoking Status: Never Smoked - CARDIAC Hx Hypertension: Yes - PULMONARY Hx Respiratory Disorders: No - NEUROLOGICAL Hx Neurological Disorder: Yes HX Cerebrovascular Accident: Yes (x2 L side weakness as per pt) - HEENT Hx HEENT Problems: No - RENAL Hx Chronic Kidney Disease: No - ENDOCRINE/METABOLIC Hx Endocrine Disorders: No - HEMATOLOGICAL/ONCOLOGICAL Hx Cancer: Yes (cervical had hyst) Hx Chemotherapy: Yes (currently receiving chemo) - INTEGUMENTARY Hx Dermatological Problems: No - MUSCULOSKELETAL/RHEUMATOLOGICAL Hx Falls: No - GASTROINTESTINAL Hx Gastrointestinal Disorders: No - GENITOURINARY/GYNECOLOGICAL Hx Genitourinary Disorders: No - PSYCHIATRIC Hx Anxiety: Yes Hx Substance Use: No - SURGICAL HISTORY Hx Hysterectomy: Yes (cervical ca) - ANESTHESIA Hx Anesthesia: No Meds Allergies/Adverse Reactions: Allergies Allergy/AdvReac Type Severity Reaction Status Date / Time Penicillins Allergy SHORTNESS Verified 11/04/16 22:53 OF BREATH Physical Exam - Head Exam Head Exam: ATRAUMATIC, NORMAL INSPECTION, NORMOCEPHALIC - Eye Exam Eye Exam: Normal appearance - Respiratory Exam Respiratory Exam: Clear to Auscultation Bilateral, NORMAL BREATHING PATTERN - Cardiovascular Exam Cardiovascular Exam: REGULAR RHYTHM - GI/Abdominal Exam GI & Abdominal Exam: Normal Bowel Sounds - Neurological Exam Neurological exam: Alert, Oriented x3 Results - Vital Signs Recent Vital Signs: Last Vital Signs Temp 98.6 F 11/04/16 23:24 Pulse 83 11/05/16 03:00 Resp 18 11/05/16 03:00 BP 147/69 11/05/16 03:00 Pulse Ox 99 11/05/16 03:00 - Labs Result Diagrams: 11/05/16 02:20 11/05/16 02:20 Assessment & Plan - Assessment and Plan (Free Text) Assessment: 56 year old female with PMH of HTN, CVA with left sided residual weakness, Cervical CA, and anxiety presents with what she describes as increased lef sided weakness. She is being worked up to rule out an acute CVA. Plan: 1. Left Sided Weakness- Rule out Acute CVA -CT head ordered, pending definitive review will defer to primary team -Fall precautions -Neuro checks Q4H -Raise the bed 30 degrees -Patient admitted to tele observation -Started on asprin 81mg Q daily -Neurology consulted 2. HTN -continue home medication 3. GI prophylaxis -Protonix 40 Q daily 4. DVT Prophylaxis - Lovenox 40 Daily <Chase Hays MD - Last Filed: 11/05/16 08:50> Present on Admission - Present on Admission Any Indicators Present on Admission: No Results - Vital Signs Recent Vital Signs: Last Vital Signs Temp 98.6 F 11/04/16 23:24 Pulse 83 11/05/16 03:00 Resp 18 11/05/16 03:00 BP 147/69 11/05/16 03:00 Pulse Ox 99 11/05/16 03:00 - Labs Result Diagrams: 11/05/16 02:20 11/05/16 02:20 Attending/Attestation - Attestation I have personally seen and examined this patient.: Yes I have fully participated in the care of the patient.: Yes I have reviewed all pertinent clinical information: Yes Notes (Text): -I agree with the above H&P completed by the resident physician with the following additions and/or changes: The patient is a 56 year old woman with a history of cervical cancer, HTN, anxiety disorder and multiple CVA's (with residual left hemiparesis, per pt report), who presents with acutely worsening left upper and lower extremity weakness which began 5-6 hours prior to presentation. Of note, the patient is a very poor and unreliable historian. She was also very uncooperative and wouldn' t allow a complete neurological examination. Given her history of CVA's, she will be admitted to rule out acute CVA. CT-head was negative for acute changes. Neuro checks will be monitored Q4hrs and a neurology consult has been placed.
[2016-11-05] MEDS: Sodium Chloride 0.9% 1,000 ML IV SCH ×2 (07:23→17:09)
[2016-11-05] MEDS: Pantoprazole 40 mg EC Tab PO SCH (07:24)
--- NOTE | 2016-11-05 08:05 | RAD ---
PROCEDURE: Radiographs of the Left Shoulder HISTORY: pain COMPARISON: No prior. FINDINGS: BONES: Limited examination consists of only a single view. There is glenohumeral osteoarthritis. There is acromioclavicular degenerative arthritis. There is no acute fracture identified. There are rounded calcific densities seen in the inferior aspect of the joint capsule, possibly loose intra-articular osseous bodies. Further evaluation is suggested. JOINTS: Normal. Glenohumeral and acromioclavicular joints preserved. No osteoarthritis. SOFT TISSUES: Normal. OTHER FINDINGS: None. IMPRESSION: No acute fracture. Possible loose intra-articular osseous bodies. Glenohumeral osteoarthritis. Acromioclavicular degenerative arthritis. Limited examination.
--- NOTE | 2016-11-05 08:06 | RAD ---
HISTORY: cva COMPARISON: 09/10/2016 FINDINGS: LUNGS: No active pulmonary disease. PLEURA: No significant pleural effusion identified, no pneumothorax apparent. CARDIOVASCULAR: Central venous infusion port. OSSEOUS STRUCTURES: No significant abnormalities. VISUALIZED UPPER ABDOMEN: Normal. OTHER FINDINGS: None. IMPRESSION: No active disease.
--- NOTE | 2016-11-05 08:09 | RAD ---
PROCEDURE: Radiographs of the Left Forearm HISTORY: pain COMPARISON: None available. TECHNIQUE: Frontal and lateral views obtained. FINDINGS: BONES: No fracture or destructive lesion. Technically limited examination. JOINT SPACES: Unremarkable. OTHER FINDINGS: None. IMPRESSION: Unremarkable radiographs of the left forearm.
[2016-11-05] MEDS: Enoxaparin 40 mg Syringe SC SCH (10:40)
--- NOTE | 2016-11-05 11:22 | CARD ---
APPROVED REPORT EKG Measurement Heart [id number] <Conclusion> Normal sinus rhythm Normal ECG
[2016-11-05] MEDS ORDERED: oxyCODONE 10 mg Immediate Release Tab PO ONE (12:41)
--- NOTE | 2016-11-05 16:03 | CON ---
NEUROLOGY CONSULTATION REPORT DATE: REASON FOR CONSULTATION: Increased weakness on the left side. HISTORY OF PRESENT ILLNESS: The patient is a 56-year-old female with a history of cerebrovascular accident with residual left-sided weakness, came in with increased weakness in her left arm and left leg. She apparently started having this symptom yesterday. She was seen in [facility] earlier yesterday for chest pain and was discharged. The patient said that the weakness on the left side is at her baseline now. Denies any other complaints. REVIEW OF SYSTEMS: Denies any headache or dizziness. Positive for chest pain. Denies any shortness of breath, abdominal pain, constipation, diarrhea, dysuria, cough, or sputum production. PAST MEDICAL HISTORY: Include cervical cancer, hypertension, anxiety, and cerebrovascular accident with residual left-sided weakness. PAST SURGICAL HISTORY: Include hysterectomy. MEDICATIONS AT HOME: Include lisinopril, Vantin, Lipitor, and aspirin. ALLERGIES: PENICILLIN. SOCIAL HISTORY: She used to smoke cigarettes. Drink alcohol occasionally. Denies use of any illicit drugs. FAMILY HISTORY: Reviewed and noncontributory to the case. PHYSICAL EXAMINATION: GENERAL: The patient is an elderly female, lying on the bed, in no acute distress. VITAL SIGNS: Her blood pressure is 98/60, heart rate is 81 per minute, breathing at rate of 16 per minute, and temperature is 98.2 degrees Fahrenheit. HEENT: Normocephalic and atraumatic. NECK: Supple. There are no carotid bruits. LUNGS: Clear. CARDIOVASCULAR: S1 and S2 audible. No murmurs. ABDOMEN: Soft and nontender. Bowel sounds present. NEUROLOGIC: Mental status: The patient is awake, alert, and oriented to time, place, and person. Speech is fluent. Naming and repetition is normal. Memory and cognition are intact. Cranial nerve examination: Pupils are 3 mm on the right active and left is status post surgery, nonreactive. Extraocular movements are intact. There is slight decrease in nasolabial fold on the left side. Tongue is midline. Motor examination: Tone is increased on the left side. Power on the right side is 4/5, power on the left upper extremity 3/5, and power on the left lower extremity also 3/5. Reflexes are 1+ and symmetrical. Plantars are upgoing on the left side and downgoing on the right side. Sensory examination is intact to soft touch and pinprick. LABORATORY DATA: Labs reviewed shows WBC of 4.4, hemoglobin 8.9, hematocrit 26.5, and platelets of 278. INR is 1.1. Sodium is 142, potassium 3.4, chloride 108, carbon dioxide content of 21, BUN of 38, creatinine 1.4, and glucose of 107. She had a CT scan of the head, which showed no acute findings seen within the brain. The finding compatible with bilateral old chronic lacunar infarcts. IMPRESSION: 1. Increasing left-sided weakness, rule out new cerebrovascular accident versus exacerbation of her old symptoms. 2. Anemia. RECOMMENDATIONS: 1. The patient to have MRI of the brain without contrast. 2. The patient may be continued on aspirin. 3. If patient's MRI of the brain shows new stroke. Consider obtaining complete stroke workup with carotid Doppler and echocardiogram. 4. Please do anemia workup. 5. The patient will have physical therapy evaluation. 6. Please continue supportive care and the treatment. Thank you for the opportunity to participate in the care of this patient. Abhinav Peterson MD [facility]
[2016-11-06] MEDS: Sodium Chloride 0.9% 1,000 ML IV SCH (05:24)
[2016-11-06] MEDS: Pantoprazole 40 mg EC Tab PO SCH (05:27)
[2016-11-06 06:36] LABS: HEMATOCRIT 25.2 % (36.0-48.0); MEAN CELL VOLUME 86.6 fl (80.0-105.0); MEAN CORPUSCULAR HEMOGLOBIN 28.5 pg (25.0-35.0); MEAN CORPUSCULAR HGB CONC 32.9 g/dl (31.0-37.0); MEAN PLATELET VOLUME 9.4 fl (7.0-11.0); RED CELL DISTRIBUTION WIDTH 15.7 % (11.5-14.5); WHITE BLOOD COUNT 3.3 10^3/ul (4.5-11.0)
[2016-11-06 06:50] LABS: ALB/GLOB RATIO 0.9 (1.1-1.8); BILIRUBIN,TOTAL 0.3 mg/dL (0.2-1.3); CALCIUM 9.1 mg/dL (8.4-10.5); POTASSIUM 3.7 mmol/L (3.6-5.0); TOTAL PROTEIN 6.2 g/dL (5.8-8.3)
[2016-11-06] MEDS: Enoxaparin 40 mg Syringe SC SCH (10:22)
--- NOTE | 2016-11-06 11:52 | CP.PCM.DIS ---
Provider - Provider Date of Admission: 11/05/16 03:50 Attending physician: Roberto Watts MD Primary care physician: [facility] Course - Lab Results Lab Results: Most Recent Lab Values WBC 3.3 10^3/ul (4.5-11.0) L D 11/06/16 06:16 RBC 2.91 10^6/uL (3.5-6.1) L 11/06/16 06:16 Hgb 8.3 g/dL (12.0-16.0) L 11/06/16 06:16 Hct 25.2 % (36.0-48.0) L 11/06/16 06:16 MCV 86.6 fl (80.0-105.0) 11/06/16 06:16 MCH 28.5 pg (25.0-35.0) 11/06/16 06:16 MCHC 32.9 g/dl (31.0-37.0) 11/06/16 06:16 RDW 15.7 % (11.5-14.5) H 11/06/16 06:16 Plt Count 264 10^3/uL (120.0-450.0) 11/06/16 06:16 MPV 9.4 fl (7.0-11.0) 11/06/16 06:16 Gran % 68.1 % (50.0-68.0) H 11/05/16 02:20 Lymph % (Auto) 17.9 % (22.0-35.0) L 11/05/16 02:20 [place] % (Auto) 11.5 % (1.0-6.0) H 11/05/16 02:20 Eos % (Auto) 2.3 % (1.5-5.0) 11/05/16 02:20 Baso % (Auto) 0.2 % (0.0-3.0) 11/05/16 02:20 Gran # 2.96 (1.4-6.5) 11/05/16 02:20 Lymph # 0.8 (1.2-3.4) L 11/05/16 02:20 [place] # 0.5 (0.1-0.6) 11/05/16 02:20 Eos # 0.1 (0.0-0.7) 11/05/16 02:20 Baso # 0.01 K/mm3 (0.0-2.0) 11/05/16 02:20 PT 11.9 Seconds (9.9-11.8) H 11/05/16 02:20 INR 1.10 (0.93-1.08) H 11/05/16 02:20 APTT 26.6 Seconds (23.7-30.8) 11/05/16 02:20 Sodium 142 mmol/L (132-148) 11/06/16 06:16 Potassium 3.7 mmol/L (3.6-5.0) 11/06/16 06:16 Chloride 111 mmol/L (98-107) H 11/06/16 06:16 Carbon Dioxide 24 mmol/L (21-33) 11/06/16 06:16 Anion Gap 11 (10-20) 11/06/16 06:16 BUN 26 mg/dL (7-21) H 11/06/16 06:16 Creatinine 1.2 mg/dL (0.5-1.4) 11/06/16 06:16 Est GFR ( Amer) 56 11/06/16 06:16 Est GFR (Non-Af Amer) 46 11/06/16 06:16 Random Glucose 89 mg/dL (70-110) 11/06/16 06:16 Hemoglobin A1c 5.5 % (4.2-6.5) 11/05/16 02:20 Calcium 9.1 mg/dL (8.4-10.5) 11/06/16 06:16 Total Bilirubin 0.3 mg/dL (0.2-1.3) 11/06/16 06:16 AST 28 U/L (14-36) 11/06/16 06:16 ALT 25 U/L (7-56) 11/06/16 06:16 Alkaline Phosphatase 92 U/L (38-126) 11/06/16 06:16 Troponin I 0.01 ng/mL 11/05/16 02:20 Total Protein 6.2 g/dL (5.8-8.3) 11/06/16 06:16 Albumin 3.0 g/dL (3.0-4.8) 11/06/16 06:16 Globulin 3.2 gm/dL 11/06/16 06:16 Albumin/Globulin Ratio 0.9 (1.1-1.8) L 11/06/16 06:16 Triglycerides 62 mg/dL (35-160) 11/05/16 02:20 Cholesterol 132 mg/dL (130-200) 11/05/16 02:20 LDL Cholesterol Direct 54 mg/dL (0-129) 11/05/16 02:20 HDL Cholesterol 45 mg/dL (29-60) 11/05/16 02:20 Urine Opiates Screen Negative (NEGATIVE) 11/06/16 02:40 Urine Methadone Screen Negative (NEGATIVE) 11/06/16 02:40 Ur Barbiturates Screen Negative (NEGATIVE) 11/06/16 02:40 Ur Phencyclidine Scrn Negative (NEGATIVE) 11/06/16 02:40 Ur Amphetamines Screen Negative (NEGATIVE) 11/06/16 02:40 U Benzodiazepines Scrn Positive (NEGATIVE) H 11/06/16 02:40 U Oth Cocaine Metabols Positive (NEGATIVE) H 11/06/16 02:40 U Cannabinoids Screen Negative (NEGATIVE) 11/06/16 02:40 Blood Type A POSITIVE 11/05/16 02:20 Blood Type Confirm A POSITIVE 11/05/16 02:45 Antibody Screen Negative 11/05/16 02:20 BBK History Checked No verified bt 11/05/16 02:20 Discharge Exam - Head Exam Head Exam: ATRAUMATIC, NORMAL INSPECTION, NORMOCEPHALIC Discharge Plan - Follow Up Plan Condition: STABLE Disposition: HOME/ ROUTINE Referrals: Tanya Cintron MD [Primary Care Provider] -
[2016-11-06] MEDS ORDERED: Potassium Chloride 20 mEq ER Tab PO ONE (11:53)
--- NOTE | 2016-11-06 20:13 | CP.PCM.PN ---
<Rachel Ramirez - Last Filed: 11/06/16 20:46> Subjective - Date & Time of Evaluation Date of Evaluation: 11/06/16 Time of Evaluation: 08:10 - Subjective Subjective: Progress note for Hospitalist service- Dr Watts. Patient with no overnight event. Patient was suppose to get MRI yesterday however patient refused MRI. Patient denies cp, sob, n/v/d. C/o extremities pain. Objective - Vital Signs/Intake and Output Vital Signs (last 24 hours): Temp Pulse Resp BP Pulse Ox 98.5 F 73 18 99/61 L 94 L 11/06/16 18:00 11/06/16 18:00 11/06/16 18:00 11/06/16 18:00 11/06/16 06:00 Intake and Output: 11/06/16 11/07/16 18:59 06:59 Intake Total 840 Output Total 200 Balance 640 - Medications Medications: Current Medications Aspirin (Aspirin Chewable) 81 mg PO DAILY [facility] Last Admin: 11/06/16 10:20 Dose: 81 mg Atorvastatin Calcium (Lipitor) 10 mg PO DIN [facility] Last Admin: 11/06/16 18:37 Dose: 10 mg Enoxaparin Sodium (Lovenox) 40 mg SC DAILY [facility] PRN Reason: Protocol Last Admin: 11/06/16 10:22 Dose: 40 mg Ketorolac Tromethamine (Toradol) 30 mg IVP Q12 PRN PRN Reason: Pain, moderate (4-7) Last Admin: 11/06/16 05:27 Dose: 30 mg Lisinopril (Zestril) 20 mg PO DAILY [facility] Last Admin: 11/06/16 10:20 Dose: 20 mg Pantoprazole Sodium (Protonix Ec Tab) 40 mg PO 0600 [facility] Last Admin: 11/06/16 05:27 Dose: 40 mg - Labs Labs: 11/06/16 06:16 11/06/16 06:16 PT 11.9 Seconds (9.9-11.8) H 11/05/16 02:20 INR 1.10 (0.93-1.08) H 11/05/16 02:20 APTT 26.6 Seconds (23.7-30.8) 11/05/16 02:20 - Constitutional Appears: No Acute Distress, Older Than Stated Age, Cachectic, Chronically Ill - Head Exam Head Exam: ATRAUMATIC, NORMAL INSPECTION, NORMOCEPHALIC - Eye Exam Eye Exam: EOMI, Normal appearance, PERRL Pupil Exam: PERRL - ENT Exam ENT Exam: Mucous Membranes Moist, Normal Exam - Neck Exam Neck Exam: Full ROM, Normal Inspection - Respiratory Exam Respiratory Exam: Clear to Ausculation Bilateral, NORMAL BREATHING PATTERN. absent: Rales, Rhonchi, Wheezes, Respiratory Distress - Cardiovascular Exam Cardiovascular Exam: REGULAR RHYTHM, +S1, +S2. absent: Gallop, JVD, Rubs, Murmur - GI/Abdominal Exam GI & Abdominal Exam: Soft, Normal Bowel Sounds. absent: Distended, Firm, Guarding, Rigid, Tenderness, Rebound - Extremities Exam Extremities Exam: absent: Pedal Edema - Back Exam Back Exam: NORMAL INSPECTION - Neurological Exam Neurological Exam: Alert, Awake, Oriented x3 Neuro motor strength exam: Left Upper Extremity: 3, Right Upper Extremity: 4, Left Lower Extremity: 3, Right Lower Extremity: 4 - Psychiatric Exam Psychiatric exam: Normal Affect, Normal Mood - Skin Skin Exam: Dry, Intact, Normal Color, Warm Assessment and Plan - Assessment and Plan (Free Text) Assessment: Patient is a 56 y/o with PMH of Plan: 1) Worsening left sided weakness and pain - Likely 2nd to recent fall, r/o Recurrent CVA - No new stroke on CT brain. -Neurology consulted, rec MRI of the brain. -Will attempt to obtain. -PT evaluated patient recommending home with service. -C/W ASA. 2) Anemia of chronic disease - H/H stable, will continue to monitor. 3) Hypokalemia- will replete. 4) HTN - c/w hydralazine 5) Dyslipidemia- c/w Lipitor. 6) GI/DVT prophylaxis- Protonix and sc Lovenox. Patient seen, examined and case discussed with Dr Watts. <Mac ANDREA,Roberto - Last Filed: 11/08/16 16:44> Objective - Vital Signs/Intake and Output Vital Signs (last 24 hours): Temp Pulse Resp BP Pulse Ox 97.9 F 75 20 127/82 97 11/07/16 12:00 11/07/16 12:00 11/07/16 12:00 11/07/16 12:00 11/07/16 06:00 - Labs Labs: 11/07/16 05:30 11/07/16 05:30 PT 11.9 Seconds (9.9-11.8) H 11/05/16 02:20 INR 1.10 (0.93-1.08) H 11/05/16 02:20 APTT 26.6 Seconds (23.7-30.8) 11/05/16 02:20 Attending/Attestation - Attestation I have personally seen and examined this patient.: Yes I have fully participated in the care of the patient.: Yes I have reviewed all pertinent clinical information, including history, physical exam and plan: Yes Notes (Text): 11/08/16 16:42 Patient was seen and examined with medical laboratory specialist. Agreed with resident assessment and plan. 56 year old female with PH of Cervical CA, CVA with residual left sided weakness , HTN and anxiety presents to the ED with what she says is increased weakness in her left arm and leg, MRI is pending, weakness is unchanged, if no new finding on MRI, she can be discharged, Management plan was discussed in detail with patient Issue of ongoing drug abuse was discussed in detail with her. Prognosis is guarded.
[2016-11-07] MEDS: Pantoprazole 40 mg EC Tab PO SCH (05:31)
[2016-11-07 06:29] LABS: HEMATOCRIT 25.9 % (36.0-48.0); MEAN CELL VOLUME 86.9 fl (80.0-105.0); MEAN CORPUSCULAR HEMOGLOBIN 28.2 pg (25.0-35.0); MEAN CORPUSCULAR HGB CONC 32.4 g/dl (31.0-37.0); MEAN PLATELET VOLUME 9.1 fl (7.0-11.0); RED CELL DISTRIBUTION WIDTH 15.6 % (11.5-14.5); WHITE BLOOD COUNT 3.3 10^3/ul (4.5-11.0)
[2016-11-07 06:30] VITALS: O2SAT 97
[2016-11-07 07:02] LABS: IRON 36 ug/dL (45-180)
[2016-11-07 07:13] LABS: ALB/GLOB RATIO 0.9 (1.1-1.8); ALKALINE PHOSPHATASE 90 U/L (38-126); ALT/SGPT 25 U/L (7-56); AST/SGOT 22 U/L (14-36); BILIRUBIN,TOTAL 0.2 mg/dL (0.2-1.3); BLOOD UREA NITROGEN 24 mg/dL (7-21); CARBON DIOXIDE 24 mmol/L (21-33); CHLORIDE 114 mmol/L (98-107); GFR AFRICAN-AMERICAN > 60; GLUCOSE,RANDOM 87 mg/dL (70-110); POTASSIUM 4.2 mmol/L (3.6-5.0); SODIUM 145 mmol/L (132-148)
[2016-11-07] MEDS: Enoxaparin 40 mg Syringe SC SCH (10:03)
[2016-11-07 12:12] VITALS: BP 127/82; PULSE 75; RESP 20; TEMP 97.9
--- NOTE | 2016-11-07 14:48 | CP.PCM.DIS ---
<GUILHERME JACKSON - Last Filed: 11/07/16 14:48> Provider - Provider Date of Admission: 11/05/16 03:50 Attending physician: Ines Peterson MD Primary care physician: Tanya Cintron Time Spent in preparation of Discharge (in minutes): 45 Hospital Course - Lab Results Lab Results: Most Recent Lab Values WBC 3.3 10^3/ul (4.5-11.0) L 11/07/16 05:30 RBC 2.98 10^6/uL (3.5-6.1) L 11/07/16 05:30 Hgb 8.4 g/dL (12.0-16.0) L 11/07/16 05:30 Hct 25.9 % (36.0-48.0) L 11/07/16 05:30 MCV 86.9 fl (80.0-105.0) 11/07/16 05:30 MCH 28.2 pg (25.0-35.0) 11/07/16 05:30 MCHC 32.4 g/dl (31.0-37.0) 11/07/16 05:30 RDW 15.6 % (11.5-14.5) H 11/07/16 05:30 Plt Count 279 10^3/uL (120.0-450.0) 11/07/16 05:30 MPV 9.1 fl (7.0-11.0) 11/07/16 05:30 Gran % 68.1 % (50.0-68.0) H 11/05/16 02:20 Lymph % (Auto) 17.9 % (22.0-35.0) L 11/05/16 02:20 [place] % (Auto) 11.5 % (1.0-6.0) H 11/05/16 02:20 Eos % (Auto) 2.3 % (1.5-5.0) 11/05/16 02:20 Baso % (Auto) 0.2 % (0.0-3.0) 11/05/16 02:20 Gran # 2.96 (1.4-6.5) 11/05/16 02:20 Lymph # 0.8 (1.2-3.4) L 11/05/16 02:20 [place] # 0.5 (0.1-0.6) 11/05/16 02:20 Eos # 0.1 (0.0-0.7) 11/05/16 02:20 Baso # 0.01 K/mm3 (0.0-2.0) 11/05/16 02:20 PT 11.9 Seconds (9.9-11.8) H 11/05/16 02:20 INR 1.10 (0.93-1.08) H 11/05/16 02:20 APTT 26.6 Seconds (23.7-30.8) 11/05/16 02:20 Sodium 145 mmol/L (132-148) 11/07/16 05:30 Potassium 4.2 mmol/L (3.6-5.0) 11/07/16 05:30 Chloride 114 mmol/L (98-107) H 11/07/16 05:30 Carbon Dioxide 24 mmol/L (21-33) 11/07/16 05:30 Anion Gap 11 (10-20) 11/07/16 05:30 BUN 24 mg/dL (7-21) H 11/07/16 05:30 Creatinine 1.0 mg/dL (0.5-1.4) 11/07/16 05:30 Est GFR ( Amer) > 60 11/07/16 05:30 Est GFR (Non-Af Amer) 57 11/07/16 05:30 Random Glucose 87 mg/dL (70-110) 11/07/16 05:30 Hemoglobin A1c 5.5 % (4.2-6.5) 11/05/16 02:20 Calcium 9.0 mg/dL (8.4-10.5) 11/07/16 05:30 Iron 36 ug/dL (45-180) L 11/07/16 05:30 TIBC 271 ug/dL (265-497) 11/07/16 05:30 % Saturation 13 % (20-55) L 11/07/16 05:30 Ferritin 121.0 ng/mL 11/06/16 06:16 Total Bilirubin 0.2 mg/dL (0.2-1.3) 11/07/16 05:30 AST 22 U/L (14-36) 11/07/16 05:30 ALT 25 U/L (7-56) 11/07/16 05:30 Alkaline Phosphatase 90 U/L (38-126) 11/07/16 05:30 Troponin I 0.01 ng/mL 11/05/16 02:20 Total Protein 6.0 g/dL (5.8-8.3) 11/07/16 05:30 Albumin 2.9 g/dL (3.0-4.8) L 11/07/16 05:30 Globulin 3.1 gm/dL 11/07/16 05:30 Albumin/Globulin Ratio 0.9 (1.1-1.8) L 11/07/16 05:30 Triglycerides 62 mg/dL (35-160) 11/05/16 02:20 Cholesterol 132 mg/dL (130-200) 11/05/16 02:20 LDL Cholesterol Direct 54 mg/dL (0-129) 11/05/16 02:20 HDL Cholesterol 45 mg/dL (29-60) 11/05/16 02:20 Vitamin B12 285 pg/mL (239-931) 11/06/16 06:16 Folate 5.0 ng/mL 11/06/16 06:16 Urine Opiates Screen Negative (NEGATIVE) 11/06/16 02:40 Urine Methadone Screen Negative (NEGATIVE) 11/06/16 02:40 Ur Barbiturates Screen Negative (NEGATIVE) 11/06/16 02:40 Ur Phencyclidine Scrn Negative (NEGATIVE) 11/06/16 02:40 Ur Amphetamines Screen Negative (NEGATIVE) 11/06/16 02:40 U Benzodiazepines Scrn Positive (NEGATIVE) H 11/06/16 02:40 U Oth Cocaine Metabols Positive (NEGATIVE) H 11/06/16 02:40 U Cannabinoids Screen Negative (NEGATIVE) 11/06/16 02:40 Blood Type A POSITIVE 11/05/16 02:20 Blood Type Confirm A POSITIVE 11/05/16 02:45 Antibody Screen Negative 11/05/16 02:20 BBK History Checked No verified bt 11/05/16 02:20 - Hospital Course Hospital Course: Ms. He is a 56 year old AAF with PMH of cocaine abuse, Cervical CA, CVA with residual left sided weakness, HTN and anxiety presents to the ED with what she says is increased weakness in her left arm and leg which she states started before admission. She was at [facility] earlier that day and was evaluated for chest pain and discharged with no interventions, per patient. She states that she was walking home when the ambulance was there for someone else that they couldn't find and so they picked her up and brought her to this hospital for her subjective L sided weakness. Patient denies any SOB, N/ V, F, Chills, CP, Palipitations, sweating. Pt was recently admitted to [facility] in August for similar complaints; from prior visit note: "The patients daughter was called to further investigate history of patient. Daughter stated that patient was not living with her due to cocaine abuse around children. Patient was also found to be anemic during stay and was supplemennted with iron. Daughter also stated that patient is a frequent liar but confirmed her prior 2 CVAs." Pt was admitted and worked up for CVA vs TIA. CT head showed no acute findings within the brain, but did show b/l chronic lacunar infarcts. XRays of shoulder and forearm were done since pt stated that she fell and showed no acute fractures, w/ glenohumeral osteoarthritis. UDS+ Benzos and cocaine. Neurology was consulted and their recs were followed. PT saw the patient and recommended home w/ services; the patient states that she uses a cane at home. The patient improved clinically and showed no unilateral weakness, or new facial asymmetry or focal deficits. On the morning of d/c, the patient denies cp, headaches, sob , palpitations, or changes in urine or bm. Neurology recommended MRI be done as outpatient and pt be d/c to continue home meds. Patient was educated and encouraged to stop using cocaine and the dangers of continuing to use cocaine were explained to her. Pt is encouraged to get an outpatient MRI. Continue ASA, Lipitor and Lisinopril. - Date & Time of H&P Date of H&P: 11/05/16 Time of H&P: 06:00 Discharge Exam - Head Exam Head Exam: ATRAUMATIC, NORMAL INSPECTION, NORMOCEPHALIC - Eye Exam Eye Exam: EOMI, Normal appearance, PERRL - ENT Exam ENT Exam: Mucous Membranes Moist, Normal Exam - Neck Exam Neck exam: Normal Inspection - Respiratory Exam Respiratory Exam: Clear to PA & Lateral, NORMAL BREATHING PATTERN, UNREMARKABLE. absent: Rales, Rhonchi, Wheezes, Respiratory Distress, Stridor - Cardiovascular Exam Cardiovascular Exam: RRR, +S1, +S2. absent: Gallop, JVD, Rubs - GI/Abdominal Exam GI & Abdominal Exam: Normal Bowel Sounds, Unremarkable. absent: Distended, Soft , Tenderness - Extremities Exam Extremities exam: full ROM, normal inspection, pedal pulses present Additional comments: L side is guarded but moves well - Neurological Exam Neurological exam: Alert, Normal Gait (mobilizes w/ cane), Oriented x3 Additional comments: mild dysarthria muscle strength 5/5 x4 extremities no pronator drift no muscle atrophy - Psychiatric Exam Psychiatric exam: Anxious - Skin Skin Exam: Normal Color, Warm Discharge Plan - Follow Up Plan Condition: STABLE Disposition: HOME/ ROUTINE Instructions: Chest Pain (DC), Dizziness (GEN) Additional Instructions: 1. please take aspirin daily 2. please go for outpatient MRI 3. please follow up with Dr. Cintron Referrals: Tanya Cintron MD [Primary Care Provider] - <Ines Peterson - Last Filed: 11/07/16 18:07> Provider - Provider Date of Admission: 11/05/16 03:50 Attending physician: Ines Peterson MD Primary care physician: [facility] Course - Lab Results Lab Results: Most Recent Lab Values WBC 3.3 10^3/ul (4.5-11.0) L 11/07/16 05:30 RBC 2.98 10^6/uL (3.5-6.1) L 11/07/16 05:30 Hgb 8.4 g/dL (12.0-16.0) L 11/07/16 05:30 Hct 25.9 % (36.0-48.0) L 11/07/16 05:30 MCV 86.9 fl (80.0-105.0) 11/07/16 05:30 MCH 28.2 pg (25.0-35.0) 11/07/16 05:30 MCHC 32.4 g/dl (31.0-37.0) 11/07/16 05:30 RDW 15.6 % (11.5-14.5) H 11/07/16 05:30 Plt Count 279 10^3/uL (120.0-450.0) 11/07/16 05:30 MPV 9.1 fl (7.0-11.0) 11/07/16 05:30 Gran % 68.1 % (50.0-68.0) H 11/05/16 02:20 Lymph % (Auto) 17.9 % (22.0-35.0) L 11/05/16 02:20 [place] % (Auto) 11.5 % (1.0-6.0) H 11/05/16 02:20 Eos % (Auto) 2.3 % (1.5-5.0) 11/05/16 02:20 Baso % (Auto) 0.2 % (0.0-3.0) 11/05/16 02:20 Gran # 2.96 (1.4-6.5) 11/05/16 02:20 Lymph # 0.8 (1.2-3.4) L 11/05/16 02:20 [place] # 0.5 (0.1-0.6) 11/05/16 02:20 Eos # 0.1 (0.0-0.7) 11/05/16 02:20 Baso # 0.01 K/mm3 (0.0-2.0) 11/05/16 02:20 PT 11.9 Seconds (9.9-11.8) H 11/05/16 02:20 INR 1.10 (0.93-1.08) H 11/05/16 02:20 APTT 26.6 Seconds (23.7-30.8) 11/05/16 02:20 Sodium 145 mmol/L (132-148) 11/07/16 05:30 Potassium 4.2 mmol/L (3.6-5.0) 11/07/16 05:30 Chloride 114 mmol/L (98-107) H 11/07/16 05:30 Carbon Dioxide 24 mmol/L (21-33) 11/07/16 05:30 Anion Gap 11 (10-20) 11/07/16 05:30 BUN 24 mg/dL (7-21) H 11/07/16 05:30 Creatinine 1.0 mg/dL (0.5-1.4) 11/07/16 05:30 Est GFR ( Amer) > 60 11/07/16 05:30 Est GFR (Non-Af Amer) 57 11/07/16 05:30 Random Glucose 87 mg/dL (70-110) 11/07/16 05:30 Hemoglobin A1c 5.5 % (4.2-6.5) 11/05/16 02:20 Calcium 9.0 mg/dL (8.4-10.5) 11/07/16 05:30 Iron 36 ug/dL (45-180) L 11/07/16 05:30 TIBC 271 ug/dL (265-497) 11/07/16 05:30 % Saturation 13 % (20-55) L 11/07/16 05:30 Ferritin 121.0 ng/mL 11/06/16 06:16 Total Bilirubin 0.2 mg/dL (0.2-1.3) 11/07/16 05:30 AST 22 U/L (14-36) 11/07/16 05:30 ALT 25 U/L (7-56) 11/07/16 05:30 Alkaline Phosphatase 90 U/L (38-126) 11/07/16 05:30 Troponin I 0.01 ng/mL 11/05/16 02:20 Total Protein 6.0 g/dL (5.8-8.3) 11/07/16 05:30 Albumin 2.9 g/dL (3.0-4.8) L 11/07/16 05:30 Globulin 3.1 gm/dL 11/07/16 05:30 Albumin/Globulin Ratio 0.9 (1.1-1.8) L 11/07/16 05:30 Triglycerides 62 mg/dL (35-160) 11/05/16 02:20 Cholesterol 132 mg/dL (130-200) 11/05/16 02:20 LDL Cholesterol Direct 54 mg/dL (0-129) 11/05/16 02:20 HDL Cholesterol 45 mg/dL (29-60) 11/05/16 02:20 Vitamin B12 285 pg/mL (239-931) 11/06/16 06:16 Folate 5.0 ng/mL 11/06/16 06:16 Urine Opiates Screen Negative (NEGATIVE) 11/06/16 02:40 Urine Methadone Screen Negative (NEGATIVE) 11/06/16 02:40 Ur Barbiturates Screen Negative (NEGATIVE) 11/06/16 02:40 Ur Phencyclidine Scrn Negative (NEGATIVE) 11/06/16 02:40 Ur Amphetamines Screen Negative (NEGATIVE) 11/06/16 02:40 U Benzodiazepines Scrn Positive (NEGATIVE) H 11/06/16 02:40 U Oth Cocaine Metabols Positive (NEGATIVE) H 11/06/16 02:40 U Cannabinoids Screen Negative (NEGATIVE) 11/06/16 02:40 Blood Type A POSITIVE 11/05/16 02:20 Blood Type Confirm A POSITIVE 11/05/16 02:45 Antibody Screen Negative 11/05/16 02:20 BBK History Checked No verified bt 11/05/16 02:20 Attending/Attestation - Attestation I have personally seen and examined this patient.: Yes I have fully participated in the care of the patient.: Yes I have reviewed all pertinent clinical information, including history, physical exam and plan: Yes Notes (Text): I have seen and examined the patient at bedside. Agree with the above note with the following additions/ exceptions: Briefly this is 56 year old female with history of cocaine abuse, cervical cancer, CVA with residual left sided weakness , HTN and anxiety who was admitted for evaluation of worsening of left sided weakness. CT head did not reveal any acute findings however bilateral chronic infarcts were seen. MRI could not be done due to claustrophobia. UDS revealed cocaine and BZ. Patient was counselled regarding substance abuse. PT recommended HWS. Upon discharge patient will follow up with Saida. Dr Ines Peterson
== END 2016-11-07 13:57 | disposition home or self-care (01) ==
LOC: ED 22:36 → ERH 11-05 03:50 → 2RNO 11-05 06:08
PROVIDERS: ADMIT Hospitalist; ATTEND Hospitalist
DX: I69.354 Hemiplegia and hemiparesis following cerebral infarction affecting left non-dominant side (principal); R07.9 Chest pain, unspecified; I10 Essential (primary) hypertension; F14.10 Cocaine abuse, uncomplicated; D64.9 Anemia, unspecified; E78.5 Hyperlipidemia, unspecified; E87.6 Hypokalemia; F40.240 Claustrophobia; Z85.41 Personal history of malignant neoplasm of cervix uteri; Z90.710 Acquired absence of both cervix and uterus; Z87.891 Personal history of nicotine dependence
CPT/HCPCS: 36415; 70450; 71010; 73020; 73090; 80053; 80061; 80324; 80345; 80346; 80349; 80353; 80358; 80361; 82607; 82728; 82746; 83036; 83540; 83550; 83992; 84484; 85025; 85027; 85610; 85730; 86850; 86900; 93005; 96374; 97116; 97162; 99285; G0378; G8978; G8979; J1650; J1885; J2060; J2405; J7040

== ENCOUNTER 2017-02-02 23:51 | Emergency (ER) | payer MEDICAID, OTHER ==
[2017-02-02 23:51] VITALS: BMI 25.1
--- NOTE | 2017-02-03 00:32 | ED PDOC ---
Arrival/HPI - General Chief Complaint: Shortness Of Breath Time Seen by Provider: 02/03/17 00:10 - History of Present Illness Narrative History of Present Illness (Text): 02/03/17 00:05 A 56 year old female, whose past medical history includes cervical CA (no longer under treatment), EtOH and cocaine abuse, presents to the emergency department complaining of diffused myalgias for 2 weeks. Patient reports mostly experiencing chest pain and pain to lower extremities. worsens with movement. Pain has been continuous for past 2 days. States smoked cocaine yesterday but not today. Does not smoke cigarrettes. Last alcohol drink was last week. Patient notes also feeling very cold due to having been in sub-freezing weather and is homeless. Also, no evidence of IV drug use. No PMD Past Medical History - Provider Review Nursing Documentation Reviewed: Yes - Infectious Disease Hx of Infectious Diseases: None - Cardiac Hx Hypertension: Yes - Pulmonary Hx Tuberculosis: No - Neurological Hx Neurological Disorder: Yes HX Cerebrovascular Accident: Yes (x3) Hx Seizures: Yes (ETOH) - HEENT Hx HEENT Disorder: No - Renal Hx Renal Disorder: No - Endocrine/Metabolic Hx Endocrine Disorders: No - Hematological/Oncological Hx Anemia: Yes - Integumentary Hx Dermatological Disorder: No - Musculoskeletal/Rheumatological Hx Falls: Yes - Gastrointestinal Hx Gastrointestinal Disorders: No - Genitourinary/Gynecological Hx Sexually Transmitted Diseases: No - Psychiatric Hx Anxiety: Yes Hx Depression: Yes Hx Schizophrenia: Yes Hx Substance Use: No - Surgical History Hx Hysterectomy: Yes Other/Comment: rt chest wall port - Anesthesia Hx Anesthesia: Yes Hx Anesthesia Reactions: No Hx Malignant Hyperthermia: No Family/Social History - Physician Review Nursing Documentation Reviewed: Yes Family/Social History: No Known Family HX Smoking Status: Never Smoked Hx Alcohol Use: Yes Hx Substance Use: No Substance used: SMOKES "TOO MUCH CRACK EVERYDAY" Allergies/Home Meds Allergies/Adverse Reactions: Allergies Penicillins Allergy (Intermediate, Verified 01/23/17 17:43) RASH Home Medications: Home Meds Medication Instructions Recorded Confirmed Unobtainable 02/03/17 02/03/17 Review of Systems - Physician Review All systems were reviewed & negative as marked: Yes - Review of Systems Cardiovascular: Chest Pain Musculoskeletal: Myalgias (pain to lower extremities mostly) Physical Exam Vital Signs Temp Pulse Resp BP Pulse Ox 02/03/17 05:29 60 18 99 02/03/17 01:22 62 14 95 02/03/17 00:13 18 99 02/03/17 00:05 138/91 H 97 02/03/17 00:00 98.4 F 54 L 20 136/91 H Blood Pressure: Normal Appearance: Positive for: Other (thin; coarse voice; looks older than stated age ) - Systems Exam Respiratory/Chest: Present: Clear to Auscultation, Other (por-a-cath to right chest wall). No: Good Air Exchange (splinting) Abdomen: Present: Normal Bowel Sounds. No: Tenderness, Distention, Peritoneal Signs Lower Extremity: Present: NORMAL PULSES (+2 bilaterally), Other (iniguez motor strength) Skin: Present: Cold (cold to extremities) Medical Decision Making ED Course and Treatment: 02/03/17 00:10 Impression: 56 year old female with chest pain and pain to lower extremities. Physical exam shows cool skin to extremities; +2 pulses bilaterally; appears thin, coarse voice, looks older than stated age; port-a-cath right chest wall; clear breath sounds, splinting not moving air well, abdomen soft non-tender; full motor strength. Differential Diagnosis included but are not limited to: Cold Exposure vs. Atypical Chest Pain Plan: -- Chest X-ray -- Labs -- Toradol -- IV Fluids -- Reassess and disposition Prior Visits: Notes and results from previous visits were reviewed. Patient was last seen in the emergency department on 02/02/2017 for abdominal pain and dysuria. Patient was discharged. Progress Notes: 02/03/17 01:03 Chest X-ray read and interpreted by me, which shows port-a-cath in the right chest, terminating in superior vena cava, no active pulmonary disease. - Lab Interpretations Lab Results: 02/03/17 00:20 02/03/17 00:00 Lab Results 02/03/17 00:20: WBC 5.4 D, RBC 3.31 L, Hgb 9.4 L, Hct 28.1 L, MCV 84.9 D, MCH 28.4, MCHC 33.5, RDW 15.3 H, Plt Count 283, MPV 9.3, Gran % 73.4 H, Lymph % ( Auto) 11.6 L, Routt % (Auto) 13.3 H, Eos % (Auto) 1.5, Baso % (Auto) 0.2, Gran # 3.99, Lymph # 0.6 L, Routt # 0.7 H, Eos # 0.1, Baso # 0.01 02/03/17 00:00: Sodium 140, Potassium 3.9, Chloride 106, Carbon Dioxide 26, Anion Gap 12, BUN 20, Creatinine 1.1, Est GFR ( Amer) > 60, Est GFR (Non- Af Amer) 51, Random Glucose 118 H, Calcium 9.8, Total Bilirubin 0.5, AST 36, ALT 30, Alkaline Phosphatase 106, Troponin I < 0.01, Total Protein 7.3, Albumin 3.8, Globulin 3.5, Albumin/Globulin Ratio 1.1 - RAD Interpretation Radiology Orders: 02/03/17 00:11 CHEST PORTABLE [RAD] Stat - Medication Orders Current Medication Orders: Discontinued Medications Sodium Chloride 1,000 ml/ IV (SUPPLIES) 1,000 mls @ 4,626.66 mls/hr IV ONCE ONE PRN Reason: 60 ML/KG/HR Stop: 02/03/17 00:12 Last Admin: 02/03/17 00:31 Dose: 4,626.66 mls/hr eMAR Start Stop Document 02/03/17 00:31 YP (Rec: [facility]/03/17 00:[id number] Intravenous Solution Start Date 02/03/17 Start Time 00:31 Ketorolac Tromethamine (Toradol) 30 mg IVP STAT STA Stop: 02/03/17 00:13 Last Admin: 02/03/17 00:32 Dose: 30 mg MAR Pain Assessment Document 02/03/17 00:32 YP (Rec: [facility]/03/17 00:[id number] Pain Reassessment Is this a pain reassessment? No Sleep Is patient sleeping during reassessment? No Presence of Pain Presence of Pain Yes IVP Administration Document 02/03/17 00:32 YP (Rec: 02/03/17 00:[id number] Charges for Administration # of IVP Administrations 1 - Scribe Statement The provider has reviewed the documentation as recorded by the Jeni Olmedo Provider Scribe Attestation: All medical record entries made by the Brendaibmichel were at my direction and personally dictated by me. I have reviewed the chart and agree that the record accurately reflects my personal performance of the history, physical exam, medical decision making, and the department course for this patient. I have also personally directed, reviewed, and agree with the discharge instructions and disposition. Disposition/Present on Arrival - Present on Arrival Any Indicators Present on Arrival: No History of DVT/PE: No History of Uncontrolled Diabetes: No Urinary Catheter: No History of Decub. Ulcer: No History Surgical Site Infection Following: None - Disposition Have Diagnosis and Disposition been Completed?: Yes Diagnosis: Atypical chest pain, Hypothermia, Hypothermia due to non-environmental cause, Cocaine abuse Disposition: HOME/ ROUTINE Disposition Time: 05:52 Patient Plan: Discharge Patient Problems: Current Active Problems Problem Status Onset Cocaine abuse Chronic Atypical chest pain Acute Hypothermia Acute Hypothermia due to non-environmental cause Acute Condition: GOOD Discharge Instructions (ExitCare): Chest Pain (ED) Referrals: Chucky Banegas [Outside] - Follow up with primary Forms: [employer] (Russian)
[2017-02-03 00:45] LABS: BASO # 0.01 K/mm3 (0.0-2.0); BASO % 0.2 % (0.0-3.0); EOS # 0.1 (0.0-0.7); EOS % 1.5 % (1.5-5.0); GRAN # 3.99 (1.4-6.5); GRAN % 73.4 % (50.0-68.0); HEMATOCRIT 28.1 % (36.0-48.0); LYMPH # 0.6 (1.2-3.4); LYMPH % 11.6 % (22.0-35.0); MEAN CELL VOLUME 84.9 fl (80.0-105.0); MEAN CORPUSCULAR HEMOGLOBIN 28.4 pg (25.0-35.0); MEAN CORPUSCULAR HGB CONC 33.5 g/dl (31.0-37.0); MEAN PLATELET VOLUME 9.3 fl (7.0-11.0); MONO # 0.7 (0.1-0.6); MONO % 13.3 % (1.0-6.0); RED CELL DISTRIBUTION WIDTH 15.3 % (11.5-14.5); WHITE BLOOD COUNT 5.4 10^3/ul (4.5-11.0)
[2017-02-03 01:01] LABS: ALB/GLOB RATIO 1.1 (1.1-1.8); ALKALINE PHOSPHATASE 106 U/L (38-126); ALT/SGPT 30 U/L (7-56); AST/SGOT 36 U/L (14-36); BILIRUBIN,TOTAL 0.5 mg/dL (0.2-1.3); BLOOD UREA NITROGEN 20 mg/dL (7-21); CALCIUM 9.8 mg/dL (8.4-10.5); CARBON DIOXIDE 26 mmol/L (21-33); CHLORIDE 106 mmol/L (98-107); GFR AFRICAN-AMERICAN > 60; GLUCOSE,RANDOM 118 mg/dL (70-110); SODIUM 140 mmol/L (132-148); TOTAL PROTEIN 7.3 g/dL (5.8-8.3)
[2017-02-03 01:19] LABS: TROPONIN I < 0.01 ng/mL
[2017-02-03 02:01] LABS: POTASSIUM 3.9 mmol/L (3.6-5.0)
[2017-02-03 05:57] LABS: URINE BILIRUBIN NEGATIVE (NEGATIVE); URINE BLOOD MODERATE (NEGATIVE); URINE GLUCOSE (UA) NEGATIVE (NEGATIVE); URINE KETONE TRACE mg/dL (NEGATIVE); URINE LEUKOCYTE ESTERASE LARGE Leu/uL (NEGATIVE); URINE PROTEIN >=300 mg/dL (<30 mg/dL); URINE UROBILINOGEN 0.2 E.U./dL (<1 E.U./dL)
[2017-02-03 06:23] LABS: URINE APPEARANCE CLOUDY (CLEAR); URINE COLOR YELLOW (YELLOW)
[2017-02-03 06:25] LABS: URINE BACTERIA MOD (NEG); URINE WBC TNTC /hpf (0-6)
[2017-02-03 06:47] VITALS: O2SAT 98
--- NOTE | 2017-02-03 10:17 | RAD ---
HISTORY: Sepsis Patient COMPARISON: Comparison made with chest radiograph 11/16/2016. FINDINGS: Re- demonstrated is in situ right IJ MediPort with tip in the SVC. LUNGS: Suspect minor bibasilar atelectasis. PLEURA: No significant pleural effusion identified, no pneumothorax apparent. CARDIOVASCULAR: Heart size is within range of normal. Aorta is slightly ectatic and uncoiled. . OSSEOUS STRUCTURES: No significant abnormalities. VISUALIZED UPPER ABDOMEN: Normal. OTHER FINDINGS: None. IMPRESSION: Suspect minor bibasilar atelectasis.
[2017-02-03 10:20] VITALS: BP 129/72; PULSE 75; RESP 19; TEMP 98.2
--- NOTE | 2017-02-03 20:06 | CARD ---
APPROVED REPORT EKG Measurement Heart [id number] NV [id number] <Conclusion> Sinus bradycardia Otherwise normal ECG
== END 2017-02-03 10:23 | disposition home or self-care (01) ==
LOC: ED 23:51
DX: R07.89 Other chest pain (principal); F14.10 Cocaine abuse, uncomplicated; T68.XXXA Hypothermia, initial encounter; N39.0 Urinary tract infection, site not specified; I10 Essential (primary) hypertension; Z88.0 Allergy status to penicillin
CPT/HCPCS: 71010; 80053; 80324; 80345; 80346; 80349; 80353; 80358; 80361; 81001; 83992; 84484; 85025; 87086; 93005; 96374; 99285; J1885; J7040

== ENCOUNTER 2017-03-24 03:42 | Inpatient (IN) | payer OTHER ==
--- NOTE | 2017-03-24 04:40 | ED PDOC ---
Arrival/HPI - General Chief Complaint: Lower Extremity Problem/Injury Time Seen by Provider: 03/24/17 03:45 Historian: Patient - History of Present Illness Narrative History of Present Illness (Text): 03/24/17 04:39 56 year old female, whose past medical history includes cervical CA (no longer treatment), alcohol abuse, cocaine drug abuse, hypertension, CVA with residual left sided weakness, and depression, presents to the Emergency department complaining of chest discomfort and right upper leg/suprapubic discomfort. Patient admits to recent cocaine use. Patient denies any fevers, chills, shortness of breath, abdominal pain, nausea, vomiting, diarrhea, back pain, neck pain, urinary/bowel changes, headache, dizziness, or any other complaint. PMD: Dr. Dickson Cintron Past Medical History - Provider Review Nursing Documentation Reviewed: Yes - Infectious Disease Hx of Infectious Diseases: None - Cardiac Hx Hypertension: Yes - Pulmonary Hx Tuberculosis: No - Neurological Hx Seizures: Yes (ETOH) - HEENT Hx HEENT Disorder: No - Renal Hx Renal Disorder: No - Endocrine/Metabolic Hx Endocrine Disorders: No - Hematological/Oncological Hx Anemia: Yes - Integumentary Hx Dermatological Disorder: No - Musculoskeletal/Rheumatological Hx Falls: Yes - Gastrointestinal Hx Gastrointestinal Disorders: No - Genitourinary/Gynecological Hx Sexually Transmitted Diseases: No - Psychiatric Hx Anxiety: Yes Hx Depression: Yes Hx Schizophrenia: Yes Hx Substance Use: No - Surgical History Hx Hysterectomy: Yes Other/Comment: rt chest wall port - Anesthesia Hx Anesthesia: Yes Hx Anesthesia Reactions: No Hx Malignant Hyperthermia: No Family/Social History - Physician Review Nursing Documentation Reviewed: Yes Family/Social History: No Known Family HX Smoking Status: Never Smoked Hx Alcohol Use: Yes Hx Substance Use: No Substance used: SMOKES "TOO MUCH CRACK EVERYDAY" Allergies/Home Meds Allergies/Adverse Reactions: Allergies Penicillins Allergy (Intermediate, Verified 02/04/17 18:23) RASH Review of Systems - Physician Review All systems were reviewed & negative as marked: Yes - Review of Systems Constitutional: absent: Fevers, Other (Chills) Respiratory: absent: SOB Cardiovascular: Chest Pain Gastrointestinal: absent: Abdominal Pain, Diarrhea, Nausea, Vomiting Genitourinary Female: absent: Dysuria, Frequency, Hematuria Musculoskeletal: Other (right upper leg/suprapubic discomfort). absent: Back Pain, Neck Pain Neurological: absent: Headache, Dizziness Physical Exam Vital Signs Reviewed: Yes Vital Signs Temp Pulse Resp BP Pulse Ox 03/24/17 06:45 85 20 122/85 99 03/24/17 04:10 99.1 F 89 20 125/89 98 Temperature: Afebrile Blood Pressure: Normal Pulse: Regular Respiratory Rate: Normal Appearance: Positive for: Well-Appearing, Non-Toxic, Comfortable Pain Distress: None Mental Status: Positive for: Alert and Oriented X 3 - Systems Exam Head: Present: Atraumatic, Normocephalic Pupils: Present: PERRL Extroacular Muscles: Present: EOMI Conjunctiva: Present: Normal Mouth: Present: Moist Mucous Membranes Pharnyx: Present: Normal Neck: Present: Normal Range of Motion Respiratory/Chest: Present: Clear to Auscultation, Good Air Exchange. No: Respiratory Distress, Accessory Muscle Use Cardiovascular: Present: Regular Rate and Rhythm, Normal S1, S2. No: Murmurs Abdomen: Present: Normal Bowel Sounds. No: Tenderness, Distention, Peritoneal Signs Back: Present: Normal Inspection, Other (Bilateral nephrostomy tube) Upper Extremity: Present: Normal Inspection. No: Cyanosis, Edema Lower Extremity: Present: Normal Inspection, NORMAL PULSES, Normal ROM. No: Edema, CALF TENDERNESS, Abhishek's Sign, Tenderness Neurological: Present: GCS=15, CN II-XII Intact, Speech Normal, Motor Func Grossly Intact, Normal Sensory Function Skin: Present: Warm, Dry, Normal Color. No: Rashes Psychiatric: Present: Alert, Oriented x 3, Normal Insight, Normal Concentration Medical Decision Making ED Course and Treatment: 03/24/17 04:40 Impression: 56 year old female presents complaining of chest discomfort and right upper leg/ suprapubic discomfort. Plan: -- EKG -- Labs -- Urine Culture -- Urinalysis -- Duplex Lower Extrem Vein Bilat. US -- Reassess and disposition Prior Visits: Notes and results from previous visits were reviewed. Patient was last seen in the emergency department on 02/03/17 presents complaining of diffused myalgias for 2 weeks. Patient was discharged. Progress Notes: 03/24/17 06:00 EKG shows NSR at 86 BPM with non-specific ST/T changes. Interpreted by me. 03/24/17 06:05 PT. refused CXR & Venous doppler studies 03/24/17 06:50 international affairs vice president cheryld.Awaiting callback. 03/24/17 07:00 Pt. was admitted for observation /further evaluation given her c/o chest pain/ cocaine use.Still awaiting urine results.Case endorsed to the oncoming ER attending to d/w the hospitalist prior to final disposition. - Lab Interpretations Lab Results: 03/24/17 05:25 03/24/17 05:25 Lab Results 03/24/17 06:00: Lactate Dehydrogenase 564, Total Creatine Kinase 195, Troponin I 0.01 03/24/17 05:25: WBC 6.1, RBC 3.41 L, Hgb 8.9 L, Hct 27.5 L, MCV 80.6 D, MCH 26.1, MCHC 32.4, RDW 16.4 H, Plt Count 472 H, MPV 9.1 03/24/17 05:25: Sodium 142, Potassium 3.8, Chloride 105, Carbon Dioxide 23, Anion Gap 18, BUN 22 H, Creatinine 1.2, Est GFR ( Amer) 56, Est GFR (Non- Af Amer) 46, Random Glucose 108, Calcium 10.1, Total Bilirubin 0.5, AST 37 H, ALT 23, Alkaline Phosphatase 122, Total Protein 8.6 H, Albumin 4.1, Globulin 4.5 , Albumin/Globulin Ratio 0.9 L 03/24/17 05:25: PT 13.5 H, INR 1.17 H, APTT 27.8 I have reviewed the lab results: Yes - RAD Interpretation Radiology Orders: 03/24/17 04:41 CHEST PORTABLE [RAD] Stat DUPLEX LOWER EXTRM VEIN BILAT [US] Stat - EKG Interpretation Interpreted by ED Physician: Yes Type: 12 lead EKG - Medication Orders Current Medication Orders: Aspirin (Aspirin) 325 mg PO ONCE STA Stop: 03/24/17 06:50 - Scribe Statement The provider has reviewed the documentation as recorded by the Jeni Ramsey Provider Scribe Attestation: All medical record entries made by the Brendaibmichel were at my direction and personally dictated by me. I have reviewed the chart and agree that the record accurately reflects my personal performance of the history, physical exam, medical decision making, and the department course for this patient. I have also personally directed, reviewed, and agree with the discharge instructions and disposition. Disposition/Present on Arrival - Present on Arrival Any Indicators Present on Arrival: No History of DVT/PE: No History of Uncontrolled Diabetes: No Urinary Catheter: No History of Decub. Ulcer: No History Surgical Site Infection Following: None - Disposition Have Diagnosis and Disposition been Completed?: Yes Diagnosis: Chest pain Disposition: HOSPITALIZED Disposition Time: 06:49 Patient Plan: Observation Patient Problems: Current Active Problems Problem Status Onset Chest pain Acute Condition: STABLE Discharge Instructions (ExitCare): Chest Pain (ED) Referrals: Tanya Cintron MD [Primary Care Provider] - Follow up with primary Forms: [facility] (Sri Lankan)
[2017-03-24 06:01] LABS: HEMOGLOBIN 8.9 g/dL (12.0-16.0); MEAN CELL VOLUME 80.6 fl (80.0-105.0); MEAN CORPUSCULAR HEMOGLOBIN 26.1 pg (25.0-35.0); MEAN CORPUSCULAR HGB CONC 32.4 g/dl (31.0-37.0); MEAN PLATELET VOLUME 9.1 fl (7.0-11.0); RBC 3.41 10^6/uL (3.5-6.1); RED CELL DISTRIBUTION WIDTH 16.4 % (11.5-14.5); WHITE BLOOD COUNT 6.1 10^3/ul (4.5-11.0)
[2017-03-24 06:08] LABS: ALB/GLOB RATIO 0.9 (1.1-1.8); ALBUMIN 4.1 g/dL (3.0-4.8); CALCIUM 10.1 mg/dL (8.4-10.5)
[2017-03-24 06:16] LABS: INR 1.17 (0.93-1.08); PROTHROMBIN TIME 13.5 SECONDS (9.4-12.5)
[2017-03-24 06:17] LABS: PARTIAL THROMBOPLASTIN TIME 27.8 Seconds (25.1-36.5)
[2017-03-24 06:40] LABS: TROPONIN I 0.01 ng/mL
[2017-03-24 06:56] LABS: BARBITURATES, UR NEGATIVE (NEGATIVE); BENZODIAZEPINES, UR NEGATIVE (NEGATIVE); OPIATES, UR NEGATIVE (NEGATIVE); PHENCYCLIDINE, UR NEGATIVE (NEGATIVE)
[2017-03-24 07:03] LABS: URINE BILIRUBIN NEGATIVE (NEGATIVE); URINE BLOOD LARGE (NEGATIVE); URINE GLUCOSE (UA) NEGATIVE (NEGATIVE); URINE LEUKOCYTE ESTERASE TRACE Leu/uL (NEGATIVE); URINE NITRATE NEGATIVE (NEGATIVE); URINE PROTEIN 100 mg/dL (<30 mg/dL); URINE UROBILINOGEN 0.2 E.U./dL (<1 E.U./dL)
[2017-03-24 07:12] LABS: URINE APPEARANCE SL CLOUDY (CLEAR); URINE COLOR YELLOW (YELLOW)
[2017-03-24 07:25] LABS: URINE BACTERIA FEW (NEG); URINE EPITHELIAL CELLS 0 - 2 /hpf (0-5)
--- NOTE | 2017-03-24 10:40 | RAD ---
HISTORY: chest pain COMPARISON: 02/03/2017. FINDINGS: The right MediPort terminates at the cavoatrial junction LUNGS: The lungs are well inflated and clear. PLEURA: No significant pleural effusion identified, no pneumothorax apparent. CARDIOVASCULAR: Normal. OSSEOUS STRUCTURES: There is moderate degenerative osteoarthrosis in the glenohumeral joints with loose bodies on the left. VISUALIZED UPPER ABDOMEN: Normal. OTHER FINDINGS: None. IMPRESSION: No active pulmonary disease.
--- NOTE | 2017-03-24 11:12 | CP.PCM.HP ---
<Keith Velazquez - Last Filed: 03/24/17 10:50> History of Present Illness - History of Present Illness History of Present Illness: Dr. Chappell Service 56 AA F with a PMHx of stage 4 cervical CA with mets (most recently evaluated by [facility]), b/l nephrostomy, alcohol abuse, cocaine abuse, hypertension, CVA with residual left sided weakness, and depression presented to the [facility] with complaints of chest discomfort, Rt leg pain and back pain. Pt states that her chest discomfort began last night, was dull/achey in nature and rated at a 6/10. Pt states her chest symptoms have resolved since seeking medical attention. Pt rt lower extremity pain has been intermittent and chronic in nature, but has most recently worsened. Pt denied any trauma to the RLE, or any swelling. As per family, pt sustained a hip fx recently. Pt was recently on a bus from [place], [place] where she was being managed for her stage 4 cervical cancer with mets ([facility]). Pt also has complaints of back pain, associated with bilateral nephrostomy tubes, which were placed approx 1 month ago due to urinary retention 2/2 mass obstruction. Pt [place] medical [facility] [place] [facility] [place] to presenting to [facility], and was evaluated for back pain. As per pt, her rt nephrostomy tube was disconnected from the collecting bag, and never replaced. Patient admits to recent cocaine and ETOH use (yesterday). Patient denies any fevers, chills, shortness of breath, abdominal pain, nausea, vomiting, diarrhea, back pain, neck pain, urinary/bowel changes, headache, dizziness, or any other complaint. PMHx: HTN, HLD, stage 4 cervical ca with mets, polysubstance abuse, CVA x3, seizures, Schizophrenia, depression PSHx: Hysterectomy, bilateral nephrostomy, rt chest wall port FamilyHx: Denied SHx: admitted to etoh and cocain abuse, denied tobacco use, unemployed, ambulates with cane Allergies: PCN Meds: Lipitor, asa, lisinopril PMD: Dr. Dickson Cintron [facility]: Dr. Esquivel Present on Admission - Present on Admission Any Indicators Present on Admission: No Review of Systems - Review of Systems Review of Systems: as per HPI otherwise negative Past Patient History - Infectious Disease Hx of Infectious Diseases: None - Past Medical History & Family History Past Medical History?: Yes - Past Social History Smoking Status: Never Smoked - CARDIAC Hx Hypertension: Yes - PULMONARY Hx Tuberculosis: No - NEUROLOGICAL Hx Seizures: Yes (ETOH) - HEENT Hx HEENT Problems: No - RENAL Hx Chronic Kidney Disease: No - ENDOCRINE/METABOLIC Hx Endocrine Disorders: No - HEMATOLOGICAL/ONCOLOGICAL Hx Anemia: Yes - INTEGUMENTARY Hx Dermatological Problems: No - MUSCULOSKELETAL/RHEUMATOLOGICAL Hx Falls: Yes - GASTROINTESTINAL Hx Gastrointestinal Disorders: No - GENITOURINARY/GYNECOLOGICAL Hx Sexually Transmitted Disorders: No - PSYCHIATRIC Hx Anxiety: Yes Hx Depression: Yes Hx Schizophrenia: Yes Hx Substance Use: No - SURGICAL HISTORY Hx Hysterectomy: Yes Other/Comment: rt chest wall port - ANESTHESIA Hx Anesthesia: Yes Hx Anesthesia Reactions: No Hx Malignant Hyperthermia: No Meds Allergies/Adverse Reactions: Allergies Allergy/AdvReac Type Severity Reaction Status Date / Time Penicillins Allergy Intermediate RASH Verified 02/04/17 18:23 Physical Exam - Constitutional Appears: No Acute Distress - Head Exam Head Exam: ATRAUMATIC, NORMAL INSPECTION, NORMOCEPHALIC - Eye Exam Eye Exam: EOMI, Normal appearance, PERRL Pupil Exam: NORMAL ACCOMODATION, PERRL - ENT Exam ENT Exam: Mucous Membranes Moist, Normal Exam - Respiratory Exam Respiratory Exam: Clear to Auscultation Bilateral, NORMAL BREATHING PATTERN - Cardiovascular Exam Cardiovascular Exam: REGULAR RHYTHM, +S1, +S2 - GI/Abdominal Exam GI & Abdominal Exam: Normal Bowel Sounds, Soft. absent: Tenderness - Exam Additional comments: bilateral nephrostomy tubes draining deneen urine L>R - Extremities Exam Extremities exam: Positive for: tenderness. Negative for: pedal edema - Back Exam Back exam: paraspinal tenderness, tenderness - Neurological Exam Neurological exam: Alert, CN II-XII Intact, Oriented x3, Reflexes Normal - Psychiatric Exam Psychiatric exam: Normal Affect, Normal Mood - Skin Skin Exam: Dry, Intact, Normal Color, Warm Results - Vital Signs Recent Vital Signs: Last Vital Signs Temp 99.1 F 03/24/17 04:10 Pulse 85 03/24/17 06:45 Resp 20 03/24/17 06:45 BP 122/85 03/24/17 06:45 Pulse Ox 99 03/24/17 06:45 - Labs Result Diagrams: 03/24/17 05:25 03/24/17 05:25 Assessment & Plan - Assessment and Plan (Free Text) Assessment: 56 AA F with a PMHx of stage 4 cervical CA with mets (most recently evaluated by [facility]), b/l nephrostomy, alcohol abuse, cocaine abuse, hypertension, CVA with residual left sided weakness, and depression presented to the [facility] ED with complaints of chest discomfort, Rt leg pain and back pain. Back pain s/p bilateral nephrostomy unknown hip fx as per family consider IR consult, Dr. Munroe for malfunctioning rt nephrostomy tube Chest discomfort asa in ED, discomfort resolved trop 0.01, trend x2 EKG NSR, serial EKG fu lipid profile asa, lisinopril, lipitor Rt Lower extremity pain US doppler pending hx of stage 4 cervical ca with mets hx of hip fx ambulates with cane pt ot eval Ck wnl will obtain med rec from [place] Stage 4 cervical cancer with mets evaluated and managed at [facility] and most recently [facility] dereje paramontmichel consulted, goals of care [facility] recommended hospice care at [facility] will fu with med records Urinary retention bilateral nephrostomy tubes 2/2 cervical ca with mets, mass compressed causing retention rt nephrostomy tube possible malfunction consider IR consult Dr. Munroe CVA with residual Left sided weakness conitnue asa, lipitor PT OT eval Polysubstance abuse Utox + cocaine admitted to cocaine and etoh use yesterday CIWA Ativan prn cocaine/etoh withdrawal Schizophrenia Dr. Cantrell consulted will follow up recommendations GI DVT ppx Seen reviewed and discussed with attending, Dr. Chappell <Sierra Chappell - Last Filed: 03/24/17 17:09> Results - Vital Signs Recent Vital Signs: Last Vital Signs Temp 99.1 F 03/24/17 04:10 Pulse 78 03/24/17 11:16 Resp 20 03/24/17 06:45 BP 123/78 03/24/17 11:16 Pulse Ox 99 03/24/17 06:45 - Labs Result Diagrams: 03/24/17 05:25 03/24/17 05:25 Labs: Laboratory Results - last 24 hr 03/24/17 03/24/17 03/24/17 13:31 13:49 13:49 Iron 25 L TIBC 245 L % Saturation 10 L Triglycerides 55 Cholesterol 107 L LDL Cholesterol Direct 46 HDL Cholesterol 34 TSH 3rd Generation 0.72 Attending/Attestation - Attestation I have personally seen and examined this patient.: Yes I have fully participated in the care of the patient.: Yes I have reviewed all pertinent clinical information: Yes Notes (Text): 03/24/17 14:49 Attending note; Patient seen and examined with resident. Patient is a 56-year-old female with a PMHx of stage 4 cervical cancer with mets (most recently evaluated by [facility]), bilateral nephrostomy tube placement ,alcohol abuse, cocaine abuse, hypertension, CVA with residual left sided weakness, and depression presented to the [facility] with complaints of chest discomfort, Right leg pain and back pain. Patient has generalized pain. Currently denies any chest pain, shortness of breath. Patient was also agitated on and off. As per patient's daughter the patient was getting treatment in [place]. The patient was supposed to be on hospice care because of advanced cervical cancer. But She left [place] and came to [place]. Patient was evaluated at [facility] yesterday. Apparently right nephrostomy tube connection fell off. currently urine is leaking. Will call intervention radiology Dr. Jose Luis Munroe's office tomorrow for catheter change. Patient also uses cocaine on the street. Drug abuse cessation is strongly recommended. Continue Ativan when necessary. Agitation; patient has "thomson' in the ER. Ativan given. Psychiatric evaluation requested. Chronic pain syndrome/opiate dependency; started on morphine when necessary. Palliative care evaluation requested. Prognosis is poor. Case discussed with patient's daughter in detail. We will get medical records from [facility] tomorrow.
[2017-03-24] MEDS ORDERED: Morphine 5 MG/ML SYRINGE IVP STA (11:28)
[2017-03-24] MEDS ORDERED: Vancomycin 1gm in NS 250ml 1 GM/250 ML BAG IVPB STA (12:27)
[2017-03-24 14:06] LABS: IRON 25 ug/dL (45-180)
[2017-03-24 14:16] LABS: % IRON SATURATION 10 % (20-55); TOTAL IRON BINDING CAPACITY 245 ug/dL (265-497)
[2017-03-24 16:01] VITALS: BMI 18.7
[2017-03-24] MEDS ORDERED: DEXTROSE 5% IVPB STA (18:07)
[2017-03-24] MEDS ORDERED: AMIKACIN IVPB STA (18:07)
[2017-03-24] MEDS ORDERED: WATER IVPB STA (18:07)
[2017-03-24] MEDS: Morphine 5 MG/ML SYRINGE IVP PRN (18:24)
--- NOTE | 2017-03-24 19:13 | CP.PCM.CON ---
History of Present Illness - History of Present Illness History of Present Illness: Infectious Disease Consultation: March 24, 2017 56 yo AA female with stage 4 cervical cancer with mets (evaluated and treated at [facility] in [place]) presenting with chest pain to [facility] evaluated than discharged from there this morning. The patient is currently complaining of chest discomfort, right leg pain, and back pain. She has nephrostomy tubes bilaterally which are not documented in prior [facility] records (last hospitalization there is October 2016). The patient is abusive is speech and limiting examination. The patient was covered in feces when arriving. Right nephrostomy site disconnected ( connecting tube and bag lost by patient). I believe the nephrostomies are relatively recent placements. PMHx: HTN, HLD, stage 4 cervical ca with mets, polysubstance abuse, CVA x 3, seizures , schizophrenia, depression PSHx: hysterectomy, bilateral nephrostomy, right chest wall port Allergies: PCN Social Hx: Cocaine abuse, EtOH abuse, no tobacco use as per patient Active Medications Acetaminophen (Tylenol 325mg Tab) 650 mg PO Q4H PRN PRN Reason: Fever >100.4 F Last Admin: 03/24/17 17:20 Dose: 650 mg Aspirin (Ecotrin) 81 mg PO DAILY [facility] Last Admin: 03/24/17 11:16 Dose: 81 mg Atorvastatin Calcium (Lipitor) 40 mg PO DIN [facility] Last Admin: 03/24/17 17:20 Dose: 40 mg Heparin Sodium (Porcine) (Heparin) 5,000 units SC Q8 [facility] PRN Reason: Protocol Last Admin: 03/24/17 13:30 Dose: Not Given Aztreonam (Azactam 1 Gm) 100 mls @ 100 mls/hr IVPB Q8 [facility] PRN Reason: Protocol Stop: 03/25/17 06:59 Lisinopril (Zestril) 20 mg PO DAILY [facility] Last Admin: 03/24/17 11:16 Dose: 20 mg Lorazepam (Ativan) 1 mg IVP Q3H PRN; Protocol PRN Reason: Anxiety Last Admin: 03/24/17 17:20 Dose: 1 mg Morphine Sulfate (Morphine) 4 mg IVP Q4H PRN PRN Reason: Pain, moderate (4-7) Last Admin: 03/24/17 18:24 Dose: 4 mg Pantoprazole Sodium (Protonix Inj) 40 mg IVP DAILY [facility] Last Admin: 03/24/17 11:16 Dose: 40 mg Tramadol HCl (Ultram) 50 mg PO TID PRN PRN Reason: Pain, moderate (4-7) Last Admin: 03/24/17 11:15 Dose: 50 mg Family Hx: none given ROS: Fevers, leaking nephrostomy site/disconnected right side. No abdominal pain, melena, hematuria, hematemesis, hematuria, hematochezia, depression, anxiety, diarrhea, vision loss, hearing loss. Past Patient History - Infectious Disease Hx of Infectious Diseases: None - Past Medical History & Family History Past Medical History?: Yes - Past Social History Smoking Status: Never Smoked - CARDIAC Hx Hypertension: Yes - PULMONARY Hx Tuberculosis: No - NEUROLOGICAL Hx Seizures: Yes (ETOH) - HEENT Hx HEENT Problems: No - RENAL Hx Chronic Kidney Disease: No - ENDOCRINE/METABOLIC Hx Endocrine Disorders: No - HEMATOLOGICAL/ONCOLOGICAL Hx Anemia: Yes - INTEGUMENTARY Hx Dermatological Problems: No - MUSCULOSKELETAL/RHEUMATOLOGICAL Hx Falls: Yes - GASTROINTESTINAL Hx Gastrointestinal Disorders: No - GENITOURINARY/GYNECOLOGICAL Hx Sexually Transmitted Disorders: No - PSYCHIATRIC Hx Anxiety: Yes Hx Depression: Yes Hx Schizophrenia: Yes - SURGICAL HISTORY Hx Hysterectomy: Yes Other/Comment: rt chest wall port - ANESTHESIA Hx Anesthesia: Yes Hx Anesthesia Reactions: No Hx Malignant Hyperthermia: No Meds Allergies/Adverse Reactions: Allergies Allergy/AdvReac Type Severity Reaction Status Date / Time Penicillins Allergy Intermediate RASH Verified 02/04/17 18:23 - Medications Medications: Current Medications Acetaminophen (Tylenol 325mg Tab) 650 mg PO Q4H PRN PRN Reason: Fever >100.4 F Last Admin: 03/24/17 17:20 Dose: 650 mg Aspirin (Ecotrin) 81 mg PO DAILY [facility] Last Admin: 03/24/17 11:16 Dose: 81 mg Atorvastatin Calcium (Lipitor) 40 mg PO DIN [facility] Last Admin: 03/24/17 17:20 Dose: 40 mg Heparin Sodium (Porcine) (Heparin) 5,000 units SC Q8 [facility] PRN Reason: Protocol Last Admin: 03/24/17 13:30 Dose: Not Given Aztreonam (Azactam 1 Gm) 100 mls @ 100 mls/hr IVPB Q8 [facility] PRN Reason: Protocol Stop: 03/25/17 06:59 Lisinopril (Zestril) 20 mg PO DAILY [facility] Last Admin: 03/24/17 11:16 Dose: 20 mg Lorazepam (Ativan) 1 mg IVP Q3H PRN; Protocol PRN Reason: Anxiety Last Admin: 03/24/17 17:20 Dose: 1 mg Morphine Sulfate (Morphine) 4 mg IVP Q4H PRN PRN Reason: Pain, moderate (4-7) Last Admin: 03/24/17 18:24 Dose: 4 mg Pantoprazole Sodium (Protonix Inj) 40 mg IVP DAILY [facility] Last Admin: 03/24/17 11:16 Dose: 40 mg Tramadol HCl (Ultram) 50 mg PO TID PRN PRN Reason: Pain, moderate (4-7) Last Admin: 03/24/17 11:15 Dose: 50 mg Physical Exam - Constitutional Appears: Non-toxic, No Acute Distress, Chronically Ill - Head Exam Head Exam: ATRAUMATIC, NORMOCEPHALIC - Eye Exam Eye Exam: EOMI, PERRL Pupil Exam: NORMAL ACCOMODATION, PERRL - ENT Exam ENT Exam: Mucous Membranes Moist, Normal External Ear Exam, TM's Normal Bilaterally - Neck Exam Neck exam: Positive for: Full Rom, Normal Inspection - Respiratory Exam Respiratory Exam: Clear to Auscultation Bilateral, NORMAL BREATHING PATTERN. absent: Rales, Rhonchi, Wheezes - Cardiovascular Exam Cardiovascular Exam: REGULAR RHYTHM, RRR, +S1, +S2 - GI/Abdominal Exam GI & Abdominal Exam: Normal Bowel Sounds, Soft. absent: Distended, Tenderness - Exam Additional comments: bilateral nephrostomy tubes draining deneen urine L>R. But right nephrostomy is disconnected and draining to the open air. - Extremities Exam Extremities exam: Negative for: joint swelling, pedal edema - Neurological Exam Neurological exam: Alert, CN II-XII Intact, Oriented x3, Reflexes Normal - Psychiatric Exam Additional comments: Abusive and purposely vague on questioning. - Skin Skin Exam: Dry, Intact, Normal Color Results - Vital Signs Recent Vital Signs: Last Vital Signs Temp 99.2 F 03/24/17 18:20 Pulse 78 03/24/17 15:54 Resp 18 03/24/17 15:54 BP 123/78 03/24/17 15:54 Pulse Ox 99 03/24/17 06:45 - Labs Result Diagrams: 03/24/17 05:25 03/24/17 05:25 Labs: Laboratory Results - last 24 hr 03/24/17 03/24/17 03/24/17 13:31 13:33 13:49 Iron TIBC % Saturation Troponin I < 0.01 Triglycerides 55 Cholesterol 107 L LDL Cholesterol Direct 46 HDL Cholesterol 34 Vitamin B12 402 TSH 3rd Generation 0.72 03/24/17 13:49 Iron 25 L TIBC 245 L % Saturation 10 L Troponin I Triglycerides Cholesterol LDL Cholesterol Direct HDL Cholesterol Vitamin B12 TSH 3rd Generation Assessment & Plan - Assessment and Plan (Free Text) Assessment: 56 yo AA female with Stage 4 cervical cancer with mets throughout the body with history of hysterectomy. Her treatment was done at [facility] for several years now. The patient has multiple hospitalizations and ER visits to [facility]. 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 The patient with chest discomfort, back pain, and right leg pain on presentation. The patient was in [facility] ER this morning and discharged. Started on Aztreonam and given one dose of Amikacin as discussed with Hospitalist group (Dr. Chappell). Mcclure cultures. Need records from [facility]. PCN allergies Thank you for allowing me to participate in the care of the patient, we will follow with you.
--- NOTE | 2017-03-24 19:26 | CARD ---
APPROVED REPORT EKG Measurement Heart [id number] <Conclusion> Normal sinus rhythm Possible Left atrial enlargement Nonspecific ST and T wave abnormality Prolonged QT Abnormal ECG
[2017-03-24 22:00] LABS: FOLATE 16.4 ng/mL
[2017-03-24] MEDS: Aztreonam 1 Gm in NS 100mL 100 ML IVPB SCH (22:00)
[2017-03-25] MEDS: Morphine 5 MG/ML SYRINGE IVP PRN ×3 (00:57→15:21)
[2017-03-25 06:33] LABS: EOS % 0.2 % (1.5-5.0); GRAN # 2.9 (1.4-6.5); GRAN % 65.3 % (50.0-68.0); HEMOGLOBIN 8.1 g/dL (12.0-16.0); LYMPH # 0.9 (1.2-3.4); LYMPH % 19.6 % (22.0-35.0); MEAN CELL VOLUME 80.3 fl (80.0-105.0); MEAN CORPUSCULAR HEMOGLOBIN 26.2 pg (25.0-35.0); MEAN CORPUSCULAR HGB CONC 32.7 g/dl (31.0-37.0); MEAN PLATELET VOLUME 8.7 fl (7.0-11.0); MONO # 0.7 (0.1-0.6); MONO % 14.9 % (1.0-6.0); RBC 3.09 10^6/uL (3.5-6.1); RED CELL DISTRIBUTION WIDTH 16.7 % (11.5-14.5); WHITE BLOOD COUNT 4.4 10^3/ul (4.5-11.0)
[2017-03-25] MEDS: Aztreonam 1 Gm in NS 100mL 100 ML IVPB SCH (06:41)
[2017-03-25 07:14] LABS: ALB/GLOB RATIO 0.9 (1.1-1.8); ALBUMIN 3.1 g/dL (3.0-4.8); ALT/SGPT 28 U/L (7-56); AST/SGOT 32 U/L (14-36); BLOOD UREA NITROGEN 20 mg/dL (7-21); CALCIUM 9.2 mg/dL (8.4-10.5); GFR AFRICAN-AMERICAN > 60; GFR NON-AFRICAN AMERICAN 51
--- NOTE | 2017-03-25 13:06 | CP.PCM.CON ---
History of Present Illness - History of Present Illness History of Present Illness: Palliative care consult requested by Dr Daylin Chappell Reason: Goals of care 56 year old female with history of metastatic cervical cancer, poly substance abuse, anxiety,shizophrenia who presented with chest discomfort,chronic pain in lower back and lower extremities. Patient has bilateral nephrostomy tubes, noted right nephrostomy collection bag missing on arrival. She admits to ingesting alcohol and cocaine prior to coming to ED. She denied nausea, vomiting ,diarrhea,headaches or dizziness. PMHx: CVA x 3, seizure disorder, schizophrenia, anxiety/depression, metastatic cervical caacer, HTN, HLD, bilateral nephrostomy tubes, hysterectomy. Family History: Non contributory Social History: Non smoker, alcohol and cocaine us. Lives alone,resident of [place]. States her daughter is next of kin. Advance Care Planning: The patient does not have an Advanced Directive. Review of systems: As per HPI, otherwise negative review. Past Patient History - Infectious Disease Hx of Infectious Diseases: None - Past Medical History & Family History Past Medical History?: Yes - Past Social History Smoking Status: Never Smoked - CARDIAC Hx Hypertension: Yes - PULMONARY Hx Tuberculosis: No - NEUROLOGICAL Hx Seizures: Yes (ETOH) - HEENT Hx HEENT Problems: No - RENAL Hx Chronic Kidney Disease: No - ENDOCRINE/METABOLIC Hx Endocrine Disorders: No - HEMATOLOGICAL/ONCOLOGICAL Hx Anemia: Yes - INTEGUMENTARY Hx Dermatological Problems: No - MUSCULOSKELETAL/RHEUMATOLOGICAL Hx Falls: Yes - GASTROINTESTINAL Hx Gastrointestinal Disorders: No - GENITOURINARY/GYNECOLOGICAL Hx Sexually Transmitted Disorders: No - PSYCHIATRIC Hx Anxiety: Yes Hx Depression: Yes Hx Schizophrenia: Yes - SURGICAL HISTORY Hx Hysterectomy: Yes Other/Comment: rt chest wall port - ANESTHESIA Hx Anesthesia: Yes Hx Anesthesia Reactions: No Hx Malignant Hyperthermia: No Meds Allergies/Adverse Reactions: Allergies Allergy/AdvReac Type Severity Reaction Status Date / Time Penicillins Allergy Intermediate RASH Verified 02/04/17 18:23 - Medications Medications: Current Medications Acetaminophen (Tylenol 325mg Tab) 650 mg PO Q4H PRN PRN Reason: Fever >100.4 F Last Admin: 03/25/17 06:30 Dose: 650 mg Aspirin (Ecotrin) 81 mg PO DAILY [facility] Last Admin: 03/25/17 09:40 Dose: 81 mg Atorvastatin Calcium (Lipitor) 40 mg PO DIN [facility] Last Admin: 03/24/17 17:20 Dose: 40 mg Heparin Sodium (Porcine) (Heparin) 5,000 units SC Q8 [facility] PRN Reason: Protocol Last Admin: 03/25/17 06:35 Dose: 5,000 units Lisinopril (Zestril) 20 mg PO DAILY [facility] Last Admin: 03/25/17 09:40 Dose: 20 mg Lorazepam (Ativan) 1 mg IVP Q3H PRN; Protocol PRN Reason: Anxiety Last Admin: 03/25/17 06:21 Dose: 1 mg Morphine Sulfate (Morphine) 4 mg IVP Q4H PRN PRN Reason: Pain, moderate (4-7) Last Admin: 03/25/17 09:41 Dose: 4 mg Pantoprazole Sodium (Protonix Ec Tab) 40 mg PO ACB [facility] Tramadol HCl (Ultram) 50 mg PO TID PRN PRN Reason: Pain, moderate (4-7) Last Admin: 03/24/17 11:15 Dose: 50 mg Physical Exam - Constitutional Appears: Chronically Ill - Head Exam Head Exam: NORMAL INSPECTION - Eye Exam Eye Exam: Normal appearance, PERRL - ENT Exam ENT Exam: Mucous Membranes Moist - Neck Exam Neck exam: Positive for: Normal Inspection - Respiratory Exam Respiratory Exam: Clear to Auscultation Bilateral, NORMAL BREATHING PATTERN - Cardiovascular Exam Cardiovascular Exam: REGULAR RHYTHM, +S1, +S2 - GI/Abdominal Exam GI & Abdominal Exam: Soft - Exam Additional comments: bilateral nephrostomy tubes patient draining clear urine - Extremities Exam Extremities exam: Positive for: normal inspection - Back Exam Back exam: NORMAL INSPECTION - Psychiatric Exam Psychiatric exam: Agitated, Anxious - Skin Skin Exam: Dry, Pallor - Additional Findings Additional findings: palliative performance scale rating 40 Results - Vital Signs Recent Vital Signs: Last Vital Signs Temp 100.8 F H 03/25/17 08:44 Pulse 73 03/25/17 10:00 Resp 22 03/25/17 08:44 BP 116/74 03/25/17 08:44 Pulse Ox 98 03/25/17 08:44 - Labs Result Diagrams: 03/25/17 06:00 03/25/17 06:00 Labs: Laboratory Results - last 24 hr 03/24/17 03/24/17 03/24/17 13:31 13:33 13:49 WBC RBC Hgb Hct MCV MCH MCHC RDW Plt Count MPV Gran % Lymph % (Auto) [place] % (Auto) Eos % (Auto) Baso % (Auto) Gran # Lymph # [place] # Eos # Baso # Sodium Potassium Chloride Carbon Dioxide Anion Gap BUN Creatinine Est GFR ( Amer) Est GFR (Non-Af Amer) Random Glucose Calcium Phosphorus Magnesium Iron TIBC % Saturation Ferritin 134.0 Total Bilirubin AST ALT Alkaline Phosphatase Troponin I < 0.01 Total Protein Albumin Globulin Albumin/Globulin Ratio Triglycerides 55 Cholesterol 107 L LDL Cholesterol Direct 46 HDL Cholesterol 34 Vitamin B12 402 Folate 16.4 TSH 3rd Generation 0.72 03/24/17 03/24/17 03/25/17 13:49 19:30 06:00 WBC 4.4 L D RBC 3.09 L Hgb 8.1 L Hct 24.8 L MCV 80.3 MCH 26.2 MCHC 32.7 RDW 16.7 H Plt Count 379 MPV 8.7 Gran % 65.3 Lymph % (Auto) 19.6 L [place] % (Auto) 14.9 H Eos % (Auto) 0.2 L Baso % (Auto) 0.0 Gran # 2.90 Lymph # 0.9 L [place] # 0.7 H Eos # 0.0 Baso # 0.00 Sodium Potassium Chloride Carbon Dioxide Anion Gap BUN Creatinine Est GFR ( Amer) Est GFR (Non-Af Amer) Random Glucose Calcium Phosphorus Magnesium Iron 25 L TIBC 245 L % Saturation 10 L Ferritin Total Bilirubin AST ALT Alkaline Phosphatase Troponin I 0.02 D Total Protein Albumin Globulin Albumin/Globulin Ratio Triglycerides Cholesterol LDL Cholesterol Direct HDL Cholesterol Vitamin B12 Folate TSH 3rd Generation 03/25/17 06:00 WBC RBC Hgb Hct MCV MCH MCHC RDW Plt Count MPV Gran % Lymph % (Auto) [place] % (Auto) Eos % (Auto) Baso % (Auto) Gran # Lymph # [place] # Eos # Baso # Sodium 140 Potassium 4.0 Chloride 109 H Carbon Dioxide 24 Anion Gap 11 BUN 20 Creatinine 1.1 Est GFR ( Amer) > 60 Est GFR (Non-Af Amer) 51 Random Glucose 89 Calcium 9.2 Phosphorus 3.0 Magnesium 2.0 Iron TIBC % Saturation Ferritin Total Bilirubin 0.3 AST 32 ALT 28 Alkaline Phosphatase 82 Troponin I Total Protein 6.7 Albumin 3.1 Globulin 3.6 Albumin/Globulin Ratio 0.9 L Triglycerides Cholesterol LDL Cholesterol Direct HDL Cholesterol Vitamin B12 Folate TSH 3rd Generation Assessment & Plan - Assessment and Plan (Free Text) Assessment: 56 year old female with history of metastatic cervical cancer, schizophrenia, anxiety, CVA, bilateral nephrostomy tubes who is admitted with back, leg discomfort, anxiety. Jennifer COVINGTON and I met with patient. She is alert, anxious, impulsive. Relates that she lives in [place], [place]. States she can not care for her self. When asked why she did not go to [facility] from [facility] last week, stated that she became frightened. Keeps repeating that she is afraid of being alone, states she has no one to care for her. As she relates these fears she becomes more anxious and paranoid. Doesn't want to be left alone in her room. Impulsive behavior, trying to stand and walk without assistance. Asking NADYA and I stay with her, crying. Reassured that team will wire repairer her closer to nurses station. Also reassured that we will work on plan to get her additional care. Psychosocial support given Plan: Psych evaluation Psychosocial distress will follow along and provide palliative support in establishing gaals of care
[2017-03-25] MEDS ORDERED: Barium Sulfate Susp 2.1% w/v, 2.0% w/w 450 mL Bottle PO ONE (14:00)
--- NOTE | 2017-03-25 15:50 | CP.PCM.PN ---
<Socrates Comer - Last Filed: 03/25/17 15:45> Subjective - Date & Time of Evaluation Date of Evaluation: 03/25/17 Time of Evaluation: 10:45 - Subjective Subjective: Socrates Comer PGY1 IM Progress Note Patient was seen and examined at bedside. Patient is currently sleeping and complaining of cold, however, earlier in the day the patient was noted to be getting up and urinating on her self (through urethra, despite b/l nephrostomy tubes). Patient is anxious and states that she lives in [place] with her daughter. States that she left the other hospital because she was not being treated properly. Patient indicates that the cane that she was given, isn't reliable and wants a walker. Patient denies fevers/chills, n/v/d, chest pain or abdominal pain. Objective - Vital Signs/Intake and Output Vital Signs (last 24 hours): Temp Pulse Resp BP Pulse Ox 100.8 F H 73 22 116/74 98 03/25/17 08:44 03/25/17 10:00 03/25/17 08:44 03/25/17 08:44 03/25/17 08:44 Intake and Output: 03/25/17 03/25/17 06:59 18:59 Intake Total 300 550 Output Total 200 1925 Balance 100 -1375 - Medications Medications: Current Medications Acetaminophen (Tylenol 325mg Tab) 650 mg PO Q4H PRN PRN Reason: Fever >100.4 F Last Admin: 03/25/17 06:30 Dose: 650 mg Aspirin (Ecotrin) [address] [facility] Last Admin: 03/25/17 09:40 Dose: 81 mg Atorvastatin Calcium (Lipitor) [address] [facility] Last Admin: 03/24/17 17:20 Dose: 40 mg Heparin Sodium (Porcine) (Heparin) 5,[address] [facility] PRN Reason: Protocol Last Admin: 03/25/17 14:36 Dose: Not Given Lisinopril (Zestril) [address] [facility] Last Admin: 03/25/17 09:40 Dose: 20 mg Lorazepam (Ativan) 1 mg IVP Q3H PRN; Protocol PRN Reason: Anxiety Last Admin: 03/25/17 13:25 Dose: 1 mg Morphine Sulfate (Morphine) 4 mg IVP Q4H PRN PRN Reason: Pain, moderate (4-7) Last Admin: 03/25/17 15:21 Dose: 4 mg Pantoprazole Sodium (Protonix Ec Tab) 40 mg PO ACB [facility] Tramadol HCl (Ultram) 50 mg PO TID PRN PRN Reason: Pain, moderate (4-7) Last Admin: 03/24/17 11:15 Dose: 50 mg - Labs Labs: 03/25/17 06:00 03/25/17 06:00 PT 13.5 SECONDS (9.4-12.5) H 03/24/17 05:25 INR 1.17 (0.93-1.08) H 03/24/17 05:25 APTT 27.8 Seconds (25.1-36.5) 03/24/17 05:25 - Constitutional Appears: No Acute Distress, Unkempt, Confused - Head Exam Head Exam: NORMAL INSPECTION - Eye Exam Eye Exam: EOMI, Normal appearance - ENT Exam ENT Exam: Mucous Membranes Moist - Neck Exam Neck Exam: Normal Inspection - Respiratory Exam Respiratory Exam: Clear to Ausculation Bilateral, NORMAL BREATHING PATTERN. absent: Wheezes - Cardiovascular Exam Cardiovascular Exam: RRR, +S1, +S2 - GI/Abdominal Exam GI & Abdominal Exam: Soft, Normal Bowel Sounds. absent: Distended, Tenderness - Extremities Exam Extremities Exam: Full ROM, Normal Inspection. absent: Pedal Edema - Back Exam Additional comments: b/l nephrostomy tubes draining into bags, urine is clear with no blood noted - Neurological Exam Neurological Exam: Alert, Awake - Psychiatric Exam Psychiatric exam: Normal Affect, Normal Mood - Skin Skin Exam: Normal Color, Warm Assessment and Plan - Assessment and Plan (Free Text) Assessment: 56 AA F with a PMHx of stage 4 cervical CA with mets (most recently evaluated by [facility]), b/l nephrostomy, alcohol abuse, cocaine abuse, hypertension, CVA with residual left sided weakness, and depression presented to the [facility] with complaints of chest discomfort, Rt leg pain and back pain. Plan: 1. Back pain s/p bilateral nephrostomy, with replacement bag placed on R nephrostomy tube by our nurses unreliable hx hip fx, will obtain XR IR consulted, recs appreciated regarding need of nephrostomy tubes given that patient is able to urinate normally CT abd/pelvis by IR to evaluate nephrotostomy tubes ID consulted, recs appreciated 2. Chest discomfort asa in ED, discomfort resolved trop negative x3 EKG NSR lipid panel wnl cont asa, lisinopril, lipitor 3. Rt Lower extremity pain US doppler pending hx of stage 4 cervical ca with mets hx of hip fx- will obtain XR ambulates with cane pt/ot eval (recommending [facility] vs [facility]/hospice) SW eval placed 4. Stage 4 cervical cancer with mets evaluated and managed at [facility] and most recently [facility] Palliative care- dereje jackson consulted, goals of care [facility] recommended hospice care at [facility] medical record obtained from [place]- will review 5. Urinary retention bilateral nephrostomy tubes, both draining well 2/2 cervical ca with mets, mass compressed causing retention IR consult Dr. Munroe 6. CVA with residual Left sided weakness conitnue asa, lipitor PT/OT eval 7. Polysubstance abuse Utox + cocaine admitted to cocaine and etoh use day before admission [facility] Ativan prn cocaine/etoh withdrawal 8. Schizophrenia Dr. Cantrell consulted will follow up recommendations 9. PTX/Heparin for GI/DVT ppx Patient was seen, examined and discussed with attending, Dr. Nicholas Comer PGY1 Pager # [phone] <Ines Peterson - Last Filed: 03/25/17 18:04> Objective - Vital Signs/Intake and Output Vital Signs (last 24 hours): Temp Pulse Resp BP Pulse Ox 102 F H 75 21 120/70 95 03/25/17 17:11 03/25/17 16:00 03/25/17 16:00 03/25/17 16:00 03/25/17 16:00 Intake and Output: 03/25/17 03/25/17 06:59 18:59 Intake Total 300 550 Output Total 200 1925 Balance 100 -1375 - Medications Medications: Current Medications Acetaminophen (Tylenol 325mg Tab) 650 mg PO Q4H PRN PRN Reason: Fever >100.4 F Last Admin: 03/25/17 17:11 Dose: 650 mg Aspirin (Ecotrin) [address] [facility] Last Admin: 03/25/17 09:40 Dose: 81 mg Atorvastatin Calcium (Lipitor) [address] [facility] Last Admin: 03/25/17 17:11 Dose: 40 mg Heparin Sodium (Porcine) (Heparin) 5,000 units SC Q8 [facility] PRN Reason: Protocol Last Admin: 03/25/17 14:36 Dose: Not Given Lisinopril (Zestril) 20 mg PO DAILY [facility] Last Admin: 03/25/17 09:40 Dose: 20 mg Lorazepam (Ativan) 1 mg IVP Q3H PRN; Protocol PRN Reason: Anxiety Last Admin: 03/25/17 17:10 Dose: 1 mg Morphine Sulfate (Morphine) 4 mg IVP Q4H PRN PRN Reason: Pain, moderate (4-7) Last Admin: 03/25/17 15:21 Dose: 4 mg Pantoprazole Sodium (Protonix Ec Tab) 40 mg PO ACB [facility] Tramadol HCl (Ultram) 50 mg PO TID PRN PRN Reason: Pain, moderate (4-7) Last Admin: 03/24/17 11:15 Dose: 50 mg - Labs Labs: 03/25/17 06:00 03/25/17 06:00 PT 13.5 SECONDS (9.4-12.5) H 03/24/17 05:25 INR 1.17 (0.93-1.08) H 03/24/17 05:25 APTT 27.8 Seconds (25.1-36.5) 03/24/17 05:25 Attending/Attestation - Attestation I have personally seen and examined this patient.: Yes I have fully participated in the care of the patient.: Yes I have reviewed all pertinent clinical information, including history, physical exam and plan: Yes Notes (Text): I have seen and examined the patient at bedside. Agree with the above note with the following additions/ exceptions: Briefly this is 56 year old female with history of stage 4 cervical cancer with mets,schizophrenia, bilateral nephrostomy tube placement ,alcohol abuse, cocaine abuse, hypertension, CVA with residual left sided weakness, and depression presented to [place] [facility] with complaints of chest discomfort, Right leg pain and back pain. Currently denies any chest pain, shortness of breath or any other complaints. Patient does not want to participate in the interview and wants to be left alone. She is agitated at times. Both nephrostomy tubes are working. Patient also uses cocaine on the street. Drug abuse cessation is strongly recommended. Continue Ativan when necessary. We are awaiting psych consult. Patient mentioned earlier to that she is afraid to be left alone and that is why she decided to come to [place]. We are awaiting records from [facility]. Prognosis is poor. Upon discharge patient will follow up with Dr Cintron? Dr Ines Peterson
[2017-03-25] MEDS ORDERED: Iohexol 350 MG/100 ML VIAL ONE (17:15)
--- NOTE | 2017-03-25 18:47 | CP.PCM.PN ---
Subjective - Date & Time of Evaluation Date of Evaluation: 03/25/17 Time of Evaluation: 17:30 - Subjective Subjective: Infectious Disease Follow Up: March 25, 2017 56 yo AA female with stage 4 cervical cancer with mets (evaluated and treated at [facility] in [place]) presenting with chest pain to [facility] evaluated than discharged from there this morning. The patient is currently complaining of chest discomfort, right leg pain, and back pain. She has nephrostomy tubes bilaterally which are not documented in prior [facility] records (last hospitalization there is October 2016). The patient is abusive is speech and limiting examination. The patient was covered in feces when arriving. Right nephrostomy site disconnected ( connecting tube and bag lost by patient). I believe the nephrostomies are relatively recent placements. The patient is constantly trying to stand and urinates on the floor. Seen by Palliative care. Objective - Vital Signs/Intake and Output Vital Signs (last 24 hours): Temp Pulse Resp BP Pulse Ox 102 F H 75 21 120/70 95 03/25/17 17:11 03/25/17 16:00 03/25/17 16:00 03/25/17 16:00 03/25/17 16:00 Intake and Output: 03/25/17 03/25/17 06:59 18:59 Intake Total 300 550 Output Total 200 1925 Balance 100 -1375 - Medications Medications: Current Medications Acetaminophen (Tylenol 325mg Tab) 650 mg PO Q4H PRN PRN Reason: Fever >100.4 F Last Admin: 03/25/17 17:11 Dose: 650 mg Aspirin (Ecotrin) 81 mg PO DAILY [facility] Last Admin: 03/25/17 09:40 Dose: 81 mg Atorvastatin Calcium (Lipitor) 40 mg PO DIN [facility] Last Admin: 03/25/17 17:11 Dose: 40 mg Heparin Sodium (Porcine) (Heparin) 5,000 units SC Q8 [facility] PRN Reason: Protocol Last Admin: 03/25/17 14:36 Dose: Not Given Lisinopril (Zestril) 20 mg PO DAILY [facility] Last Admin: 03/25/17 09:40 Dose: 20 mg Lorazepam (Ativan) 1 mg IVP Q3H PRN; Protocol PRN Reason: Anxiety Last Admin: 03/25/17 17:10 Dose: 1 mg Morphine Sulfate (Morphine) 4 mg IVP Q4H PRN PRN Reason: Pain, moderate (4-7) Last Admin: 03/25/17 15:21 Dose: 4 mg Pantoprazole Sodium (Protonix Ec Tab) 40 mg PO ACB [facility] Tramadol HCl (Ultram) 50 mg PO TID PRN PRN Reason: Pain, moderate (4-7) Last Admin: 03/24/17 11:15 Dose: 50 mg - Labs Labs: 03/25/17 06:00 03/25/17 06:00 PT 13.5 SECONDS (9.4-12.5) H 03/24/17 05:25 INR 1.17 (0.93-1.08) H 03/24/17 05:25 APTT 27.8 Seconds (25.1-36.5) 03/24/17 05:25 - Constitutional Appears: Non-toxic, No Acute Distress, Chronically Ill - Head Exam Head Exam: ATRAUMATIC, NORMOCEPHALIC - Eye Exam Eye Exam: EOMI, PERRL Pupil Exam: NORMAL ACCOMODATION, PERRL - ENT Exam ENT Exam: Mucous Membranes Moist, Normal External Ear Exam, TM's Normal Bilaterally - Neck Exam Neck Exam: Full ROM, Normal Inspection - Respiratory Exam Respiratory Exam: Clear to Ausculation Bilateral, NORMAL BREATHING PATTERN. absent: Rales, Rhonchi, Wheezes - Cardiovascular Exam Cardiovascular Exam: REGULAR RHYTHM, RRR, +S1, +S2 - GI/Abdominal Exam GI & Abdominal Exam: Soft, Normal Bowel Sounds. absent: Distended, Tenderness - Exam Additional comments: bilateral nephrostomy tubes draining deenen urine L>R. But right nephrostomy is disconnected and draining to the open air. - Extremities Exam Extremities Exam: absent: Joint Swelling, Pedal Edema - Neurological Exam Neurological Exam: Alert, Awake, CN II-XII Intact, Oriented x3 - Psychiatric Exam Additional comments: Abusive and purposely vague on questioning. Crying at times as well. - Skin Skin Exam: Dry, Intact, Normal Color Assessment and Plan - Assessment and Plan (Free Text) Assessment: 56 yo AA female with Stage 4 cervical cancer with mets throughout the body with history of hysterectomy. Her treatment was done at [facility] for several years now. The patient has multiple hospitalizations and ER visits to [facility]. 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 The patient with chest discomfort, back pain, and right leg pain on presentation. The patient was in [facility] ER this morning and discharged. Started on Aztreonam and given one dose of Amikacin as discussed with Hospitalist group (Dr. Chappell). Mcclure cultures. Urine cultures negative to date. Still with low grade fevers. Fevers may be secondary to metastatic cervical cancer (Stage 4). Need records from [facility]. PCN allergies Thank you for allowing me to participate in the care of the patient, we will follow with you.
--- NOTE | 2017-03-25 23:26 | CON ---
DATE: 03/25/2017 CONSULTATION TIME: 2:15 p.m. CHIEF COMPLAINT/HISTORY OF PRESENT ILLNESS: The patient is not communicative. By history, she is 56 with stage IV cervical CA. She has bilateral nephrostomy tubes, which presumably were placed at [facility]. I have been asked to evaluate the tubes. She has a history of alcohol and cocaine abuse, previous CVA, and depression/anxiety. Her nephrostomy tubes are taped. They flush easily and appear to be draining clear urine. I will order a CT scan of the abdomen and pelvis to assess nephrostomy tube position and extent of pelvic disease from her cervical CA. No interventions are scheduled at this time. Jose Luis Munroe MD MTDD
[2017-03-26] MEDS: Dextrose 5%/0.45% NS 1,000 ML IV SCH ×2 (05:38→18:45)
[2017-03-26 06:32] LABS: EOS % 0.2 % (1.5-5.0); GRAN # 2.99 (1.4-6.5); GRAN % 66.7 % (50.0-68.0); LYMPH % 21.9 % (22.0-35.0); MEAN CELL VOLUME 80.4 fl (80.0-105.0); MEAN CORPUSCULAR HGB CONC 32.3 g/dl (31.0-37.0); MEAN PLATELET VOLUME 8.7 fl (7.0-11.0); MONO # 0.5 (0.1-0.6); MONO % 11.2 % (1.0-6.0); RBC 2.85 10^6/uL (3.5-6.1); RED CELL DISTRIBUTION WIDTH 16.6 % (11.5-14.5); WHITE BLOOD COUNT 4.5 10^3/ul (4.5-11.0)
[2017-03-26 06:49] LABS: HEMOGLOBIN 7.4 g/dL (12.0-16.0)
[2017-03-26 07:00] LABS: ALB/GLOB RATIO 0.8 (1.1-1.8); ALBUMIN 2.7 g/dL (3.0-4.8); ALT/SGPT 27 U/L (7-56); AST/SGOT 29 U/L (14-36); BLOOD UREA NITROGEN 17 mg/dL (7-21); CALCIUM 8.7 mg/dL (8.4-10.5); GFR AFRICAN-AMERICAN > 60; GFR NON-AFRICAN AMERICAN 51; MAGNESIUM 1.9 mg/dL (1.7-2.2)
--- NOTE | 2017-03-26 08:24 | CON ---
DATE: 03/25/2017 She is being seen today for a consultation. CO-SIGNER: Tamia Groves MD PRESENTATION: The patient is a 56-year-old female who is seen at bedside. The patient originally was admitted to the hospital on 03/24/2017. She came to the Emergency Room complaining of chest discomfort and right upper leg suprapubic discomfort. She had recently used cocaine at that time. She was admitted to the hospital to get her right nephrostomy tube connected. According to the orders, we were called and consulted for agitation. The patient, immediately upon my greeting starts crying and sobbing, indicates that all she wants is pain medications, that is all she wants, that is all needs, that is all she is thinking about and that is all she wants. When I explained to her that I was here on a psychiatric consultation and that the nurse is coming with her medication, she did consent to talk with me. However, throughout the conversation, she kept with her med-seeking behavior. The patient indicates that she lives with her daughter who is 34 years old and her 16-year-old grandson. She is on disability from having three strokes. She indicates that she has never had a Psychiatrist, never been hospitalized, never been on psychiatric meds, never had suicidal ideation or suicide attempts. Medically, the patient has had three strokes. She had stage IV cervical cancer with metastases. She has nephrostomy, hypertension, one of her CVAs has residual left-sided weakness. She has a history of depression, cocaine abuse, and alcohol abuse. DRUG AND ALCOHOL HISTORY: The patient indicates that she has had cocaine problem and used cocaine yesterday. She had been sober, she states for 3 years up until her brother of cancer recently and then she started sporadically using cocaine. She indicates that she also uses alcohol. She just indicates that she does not love herself, because she does these things and she has been her life and this is the way that she while using drugs. She indicates that she has cancer and she is scared, this is why she uses drugs as well. Legal history includes charges of aggravated assault 20 years ago, indicates that those charges were dropped, she did not end up going to penitentiary. Family history of mental illness includes seven brothers, all of whom have been jailed at one time or another for drugs. The patient grew up in [place]. Her mom left when she was 5 years old with her seven brothers and her father. She is number six of eight siblings. Her paternal grandmother lived with them and helped to raise them and was very helpful to her growing up. Her father worked for [employer] and did the best he could to provide for his children. The patient indicates that she did well in school, but she did not have friends. She states she only had friends as long as she friends and then explained to me that she had to do things for people in order for them to like her. The patient indicates that she is a graduate from high school and then she " the street." She never worked, never had a job. She has one daughter who is 34 years old. She does not know the father of that child who was. She indicates that she raised her on welfare. PHYSICAL EXAMINATION: VITAL SIGNS: Current vital signs include temperature of 102, pulse of 75, blood pressure 120/70, respiratory rate of 21 and an O2 sat of 95%. MEDICATIONS: Her current medications are Ecotrin, Lipitor, heparin, and Zestril. Ativan IV push q.3 hours and morphine 4 mg IV push q.4 hours, both of which she takes routinely. Protonix and tramadol, which she also takes routinely. LABORATORY DATA: Her microbiology indicates that it was negative. Her urine culture was negative as of yesterday. MENTAL STATUS EXAM: The patient is alert, but she is only oriented to her name. She has no idea of where she is and . She is unable to tell me the season, date, year. She thinks Mr. Landeros is still President. She is somewhat cooperative, but very, very preoccupied with the med seeking behavior. Her mood is anxious. Her affect is constricted. Her thoughts are concrete and she has lot of difficulty in sequencing or telling me exactly when this happened and how that happened. No sense of time or organization . She denies being suicidal or homicidal. Denies the presence of hallucinations, delusions, or paranoia. Her concentration and her focus are poor. Memory, both short and continuous churn buttermaker, is affected. Her appetite, she indicates is good. She denies being depressed at this time. She does have anxiety, but it seems to be more concerned with whether or not she is going to get her pain medications. DIAGNOSTIC IMPRESSION: Cocaine abuse, alcohol abuse, mood disorder related to medical conditions which would be stroke and diagnosis with cancer. PLAN: The patient denies being suicidal or homicidal. She does not appear in any imminent danger of hurting herself or others. She does not have the capacity for much insight or the ability to care for herself at this point in time. It appears that her problems are more medical than psychiatric at this time. I will sign off on the patient. Please call back if there are any further needs. This case has been discussed with Dr. Tamia Groves. Thank you for the consult. Lori Kilpatrick APN ZAK
[2017-03-26] MEDS: Pantoprazole 40 mg EC Tab PO SCH (08:38)
[2017-03-26] MEDS ORDERED: Vancomycin 1gm in NS 250ml 1 GM/250 ML BAG IVPB SCH (09:15)
[2017-03-26] MEDS ORDERED: cefTRIAXone 2 GM IN NS 2 GM/100 ML BAG IVPB SCH (10:00)
[2017-03-26 12:34] LABS: URINE BILIRUBIN NEGATIVE (NEGATIVE); URINE BLOOD LARGE (NEGATIVE); URINE GLUCOSE (UA) NEGATIVE (NEGATIVE); URINE LEUKOCYTE ESTERASE TRACE Leu/uL (NEGATIVE); URINE NITRATE NEGATIVE (NEGATIVE); URINE PROTEIN NEGATIVE mg/dL (<30 mg/dL); URINE UROBILINOGEN 0.2 E.U./dL (<1 E.U./dL)
[2017-03-26 12:39] LABS: URINE APPEARANCE SL CLOUDY (CLEAR); URINE COLOR YELLOW (YELLOW)
[2017-03-26 12:40] LABS: URINE BACTERIA FEW (NEG)
[2017-03-26] MEDS: Aztreonam 1 Gm in NS 100mL 100 ML IVPB SCH ×2 (14:05→22:31)
--- NOTE | 2017-03-26 15:15 | CP.PCM.PN ---
<NahomiSocrates - Last Filed: 03/26/17 17:45> Subjective - Date & Time of Evaluation Date of Evaluation: 03/26/17 Time of Evaluation: 09:53 - Subjective Subjective: Socrates HurdNahomi PGY1 IM Progress Note Patient was seen and examined at bedside. Patient is very anxious and keeps stating that she is afraid. The patient stated that she wanted to stand up, and when she did, she had urine and bright blood dripping from under her hospital gown. The patient states "I'm in pain" and "I'm afraid". The patient states that she has back pain and abdominal pain, but does not explain. Patient denies fevers/chills, n/v/d, chest pain. Patient's daughter Bernice Pablo ([phone]) was contacted by me and she stated that the patient was living for a while at the patient's brother's house in [place], [place] and ended up hospitalized at [facility]) around 01/2017 due to abdominal pain and difficulty urinating. She was hospitalized for two weeks and had nephrostomy tubes placed. Patient was then brought to [facility] by Bernice. Patient was offered a "penitentiary " but she had a panic attack and was worried about being alone so she eloped. When asked how she managed to do that, Bernice states that "my mother is smart and she had money". The plan was to transfer the patient to a penitentiary in [place], [place] because the patient's insurance is in [place]. Bernice also mentions that the patient's wishes were to be DNR/DNI and that these advanced directives were discussed with the patient and her only child, Bernice, is also in agreement. Objective - Vital Signs/Intake and Output Vital Signs (last 24 hours): Temp Pulse Resp BP Pulse Ox 99 F 81 18 96/57 L 97 03/26/17 08:38 03/26/17 11:33 03/26/17 08:38 03/26/17 11:33 03/26/17 08:38 Intake and Output: 03/26/17 03/26/17 06:59 18:59 Intake Total 0 Balance 0 - Medications Medications: Current Medications Acetaminophen (Tylenol 325mg Tab) 650 mg PO Q4H PRN PRN Reason: Fever >100.4 F Last Admin: 03/26/17 05:18 Dose: 650 mg Aspirin (Ecotrin) 81 mg PO DAILY [facility] Last Admin: 03/26/17 12:00 Dose: 81 mg Atorvastatin Calcium (Lipitor) 40 mg PO DIN [facility] Last Admin: 03/25/17 17:11 Dose: 40 mg Heparin Sodium (Porcine) (Heparin) 5,000 units SC Q8 [facility] PRN Reason: Protocol Last Admin: 03/26/17 14:03 Dose: 5,000 units Dextrose/Sodium Chloride (Dextrose 5%/0.45% Ns 1000 Ml) 1,000 mls @ 75 mls/hr IV .[id number] [facility] Last Admin: 03/26/17 05:38 Dose: 75 mls/hr Aztreonam (Azactam 1 Gm) 100 mls @ 100 mls/hr IVPB Q8 [facility] PRN Reason: Protocol Stop: 03/26/17 22:59 Last Admin: 03/26/17 14:05 Dose: 100 mls/hr Lisinopril (Zestril) 20 mg PO DAILY [facility] Last Admin: 03/26/17 11:33 Dose: Not Given Lorazepam (Ativan) 1 mg IVP Q3H PRN; Protocol PRN Reason: Anxiety Last Admin: 03/26/17 11:58 Dose: 1 mg Morphine Sulfate (Morphine) 4 mg IVP Q4H PRN PRN Reason: Pain, moderate (4-7) Last Admin: 03/25/17 15:21 Dose: 4 mg Pantoprazole Sodium (Protonix Ec Tab) 40 mg PO ACB [facility] Last Admin: 03/26/17 08:38 Dose: 40 mg Quetiapine Fumarate (Seroquel) 12.5 mg PO BID [facility] PRN Reason: Protocol Tramadol HCl (Ultram) 50 mg PO TID PRN PRN Reason: Pain, moderate (4-7) Last Admin: 03/26/17 10:06 Dose: 50 mg - Labs Labs: PT 13.5 SECONDS (9.4-12.5) H 03/24/17 05:25 INR 1.17 (0.93-1.08) H 03/24/17 05:25 APTT 27.8 Seconds (25.1-36.5) 03/24/17 05:25 - Additional Findings Additional findings: - Constitutional Appears: No Acute Distress, Unkempt, Confused - Head Exam Head Exam: NORMAL INSPECTION - Eye Exam Eye Exam: EOMI, Normal appearance - ENT Exam ENT Exam: Mucous Membranes Moist - Neck Exam Neck Exam: Normal Inspection - Respiratory Exam Respiratory Exam: Clear to Ausculation Bilateral, NORMAL BREATHING PATTERN. absent: Wheezes - Cardiovascular Exam Cardiovascular Exam: RRR, +S1, +S2 - GI/Abdominal Exam GI & Abdominal Exam: Soft, Normal Bowel Sounds. absent: Distended, Tenderness - Extremities Exam Extremities Exam: Full ROM, Normal Inspection. absent: Pedal Edema - Back Exam Back Exam: absent: CVA Tenderness (L & R) Additional comments: b/l nephrostomy tubes draining into bags, urine is clear with no blood noted - Neurological Exam Neurological Exam: Alert, Awake Additional comments: aphasic, slurring speech - Psychiatric Exam Psychiatric exam: Normal Affect, Anxious - Skin Skin Exam: Normal Color, Warm Assessment and Plan - Assessment and Plan (Free Text) Assessment: 56 AA F with a PMHx of progressive stage 4 cervical CA with mets (most recently evaluated by [facility]), b/l nephrostomy tubes, alcohol abuse, cocaine abuse, hypertension, CVA with residual left sided weakness, and depression presented to [place] [facility] [place] with complaints of chest discomfort, Rt leg pain and back pain. Currently having intermittent fevers, possible cause is nephrostomy tubes. Per [facility] records which were faxed to us, patient has very advanced cervical cancer w/ mets to other sites and bl nephrostomy tubes. Recently (records indicate 03/11/17 admission date), the patient was admitted and treated for uretral infection w/ MRSA and enterococci with 7 days Vancomycin but refused to have the tubes replaced; patient ended up eloping. According to their physicians, the patient is nearing hospice, although not quite there yet. Plan: 1. Back pain s/p bilateral nephrostomy, with replacement bag placed on R nephrostomy tube by our nurses Scans from [place] indicate R inferior and superior pubic rami pathologic fractures (possibly 2/2 post-radiation). Compression fracture in superior endplate of L3. IR consulted, recs appreciated regarding need of nephrostomy tubes given that patient is able to urinate normally CT abd/pelvis by IR to evaluate nephrotostomy tubes pending, patient is anxious and refuses, will likely require sedation ID consulted, recs appreciated 2. Stage 4 cervical cancer with mets evaluated and managed at [facility] and most recently [facility] Palliative care- dereje jackson consulted, [facility] care at [facility] medical record obtained from [place]- CT abd/pelvis shows interval progression of disease with suggestion of masses along the vagina. enlarged r external iliac and groin lymph nodes consistent w/ mets. Anterior bladder wall thickening and edema and stranding in anterior pelvic wall could represent post- treatment changes. 3. Urinary retention w/ intermittent fevers 2/2 cervical ca with mets, mass compressed causing retention and bleeding bilateral nephrostomy tubes, both draining well possible UTI from tubes urine cultures sent from 2 tubes and urethra on Azactam IR consult Dr. Munroe ID consulted, recs appreciated 4. Rt Lower extremity pain hx of stage 4 cervical ca with mets hx of hip fx- will obtain XR ambulates with cane pt/ot eval (recommending [facility] vs [facility]/hospice) SW eval placed 5. CVA with residual Left sided weakness conitnue asa, lipitor PT/OT eval 6. Polysubstance abuse Utox + cocaine admitted to cocaine and etoh use day before admission CIWA Ativan prn cocaine/etoh withdrawal 7. Schizophrenia/Agitation Dr. Cantrell consulted will follow up recommendations low dose Seroquel started by psych Ativan/Geodon PRN agitation 8. PTX/Heparin for GI/DVT ppx Patient was seen, examined and discussed with attending, Dr. Nicholas Comer PGY1 Pager # [phone] <Ines Peterson B - Last Filed: 03/27/17 15:53> Objective - Vital Signs/Intake and Output Vital Signs (last 24 hours): Temp Pulse Resp BP Pulse Ox 98.9 F 99 H 18 120/86 96 03/27/17 08:42 03/27/17 09:24 03/26/17 23:30 03/27/17 09:24 03/26/17 16:00 Intake and Output: 03/27/17 03/27/17 06:59 18:59 Intake Total 540 725 Output Total 500 Balance 540 225 - Medications Medications: Current Medications Acetaminophen (Tylenol 325mg Tab) 650 mg PO Q4H PRN PRN Reason: Fever >100.4 F Last Admin: 03/27/17 08:39 Dose: 650 mg Aspirin (Ecotrin) 81 mg PO DAILY [facility] Last Admin: 03/27/17 09:21 Dose: 81 mg Atorvastatin Calcium (Lipitor) 40 mg PO DIN [facility] Last Admin: 03/26/17 18:27 Dose: 40 mg Clonazepam (Klonopin) 0.5 mg PO TID [facility] PRN Reason: Protocol Last Admin: 03/27/17 14:37 Dose: 0.5 mg Heparin Sodium (Porcine) (Heparin) 5,000 units SC Q8 [facility] PRN Reason: Protocol Last Admin: 03/27/17 14:37 Dose: 5,000 units Dextrose/Sodium Chloride (Dextrose 5%/0.45% Ns 1000 Ml) 1,000 mls @ 75 mls/hr IV .[id number] [facility] Last Admin: 03/27/17 14:41 Dose: Not Given Lisinopril (Zestril) 20 mg PO DAILY [facility] Last Admin: 03/27/17 09:24 Dose: 20 mg Lorazepam (Ativan) 1 mg IVP Q3H PRN; Protocol PRN Reason: Anxiety Last Admin: 03/27/17 13:09 Dose: 1 mg Morphine Sulfate (Morphine) 4 mg IVP Q4H PRN PRN Reason: Pain, moderate (4-7) Last Admin: 03/25/17 15:21 Dose: 4 mg Pantoprazole Sodium (Protonix Ec Tab) 40 mg PO ACB [facility] Last Admin: 03/27/17 08:40 Dose: 40 mg Quetiapine Fumarate (Seroquel) 12.5 mg PO BID [facility] PRN Reason: Protocol Last Admin: 03/27/17 09:21 Dose: 12.5 mg Quetiapine Fumarate (Seroquel) 25 mg PO HS [facility] PRN Reason: Protocol Tramadol HCl (Ultram) 50 mg PO TID PRN PRN Reason: Pain, moderate (4-7) Last Admin: 03/27/17 01:55 Dose: 50 mg Ziprasidone (Geodon Inj) 20 mg IM Q8 PRN; Protocol PRN Reason: Agitation - Labs Labs: 03/27/17 06:10 03/27/17 06:10 PT 13.5 SECONDS (9.4-12.5) H 03/24/17 05:25 INR 1.17 (0.93-1.08) H 03/24/17 05:25 APTT 27.8 Seconds (25.1-36.5) 03/24/17 05:25 Attending/Attestation - Attestation I have personally seen and examined this patient.: Yes I have fully participated in the care of the patient.: Yes I have reviewed all pertinent clinical information, including history, physical exam and plan: Yes Notes (Text): I have seen and examined the patient at bedside. Agree with the above note with the following additions/ exceptions: Briefly this is 56 year old female with history of stage 4 cervical cancer with mets, schizophrenia, bilateral nephrostomy tube placement, alcohol abuse, cocaine abuse, hypertension, CVA with residual left sided weakness, and depression presented to the [facility] with complaints of chest discomfort, Right leg pain and back pain. Patient started crying during an interview and states that she is in pain. I tried to discuss with her regarding rehab vs home vs hospice care. I will reach out to the daughter regarding plan of care. I have discussed with the psychiatrist as well. Both nephrostomy tubes are working. Patient also uses cocaine on the street. Drug abuse cessation is strongly recommended. Patient was started on klonopin and seroquel as she has been very agitated. Records reviewed from [facility]. Patient was DNR/DNI. Patient already completed antibiotic therapy for MRSA UTI. As per ID, fever is most likely secondary to metastatic disease. Prognosis is poor. Upon discharge patient will follow up with Dr Cintron? Dr Ines Peterson
--- NOTE | 2017-03-26 16:11 | PN ---
DATE: 03/26/2017 She is being seen today for a consultation followup. PRESENTATION: The patient is a 56-year-old female, seen at bedside. She was previously seen on consult. Dr. Peterson requested a return due to the patient's anxious presentation. The patient was admitted to the hospital on 03/24/2017, having left hospital in [place] because she felt she was not been treated properly. She was here complaining of chest discomfort and right upper legs suprapubic discomfort. She has a history of stage IV cervical cancer with metastasis, nephrostomy, hypertension and CVA with residual left side weakness as well as history of cocaine use, depression and alcohol abuse. The patient indicated she used cocaine just prior to coming into the hospital that she is weak, that she was upset and this is how she dia. The patient today is very, very anxious. She is standing up at her bedside. She states she needs to walk. She is unsteady on her feet, so is not allowed to walk without physical therapy present. She has a poor memory and poor ability to taking information, so she has to be repeatedly reminded not to walk in area where she can fall, she is standing next to her bed. The patient when reevaluated indicates that she has pain, she hurts all over. She just needs something for the pain and she still nervous. She indicates that she has no one, her daughter will not come here and see her and this makes feel very sad. She is alone and anxious. She has cancer and she is very afraid. She indicates that she is not suicidal or homicidal. She denies the presence of hallucinations, delusions or paranoia; however, her anxiety is very high, so we agree that I will order her some Seroquel immediately to see if this will help her with her anxiety. VITAL SIGNS: Temperature of 100.4, pulse rate of 88, blood pressure of 96/57, respiratory rate of 18 and O2 sat of 97%. MENTAL STATUS EXAM: The patient is alert; however, she is only oriented to who she is. She has no idea of day, date and time. She thinks Mr. Landeros is still the President. She indicates she is cooperative, but has difficulty retaining information. I have to repete over and over again. Her mood is anxious. Her affect is constricted. Her thoughts are concrete, simplistic and repetitive. She denies being suicidal or homicidal. Denies the presence of hallucinations, both audio and visual delusions or paranoia. Her concentration and focus are very, very poor. Memory both short and termite treater helper have deficits. Her appetite is good and the patient indicates she is having some difficulty sleeping as well. DIAGNOSTIC IMPRESSION: Cocaine abuse, alcohol abuse, mood disorder with anxiety related to medical conditions, which are stroke and cancer, PLAN: The patient denies being suicidal or homicidal and does not appear in any imminent danger of hurting herself or others; however, her anxiety level, as noted by Dr. Peterson is very, very high. I have ordered Seroquel low dose 12.5 mg as a one-time dose now and plan to continue it b.i.d. I will reassess the patient in the morning. I am hoping that it will help lower her anxiety, calm down her thoughts and help her sleep this evening. We will continue to follow the patient. addendum: had prolonged discussion with yesterday, tx options and h/o discussed in details will add Klonopin for anxiety and follow pt up, Palliative care consult appreciated, pt is DNI and DNR. Thank you for the consult. Lori Kilpatrick APN ZAK
--- NOTE | 2017-03-26 18:50 | CP.PCM.PN ---
Subjective - Date & Time of Evaluation Date of Evaluation: 03/26/17 Time of Evaluation: 16:30 - Subjective Subjective: Infectious Disease Follow Up: March 26, 2017 56 yo AA female with stage 4 cervical cancer with mets (evaluated and treated at [facility] in [place]) presenting with chest pain to [facility] evaluated than discharged from there this morning. The patient is currently complaining of chest discomfort, right leg pain, and back pain. She has nephrostomy tubes bilaterally which are not documented in prior [facility] records (last hospitalization there is October 2016). The patient is abusive is speech and limiting examination. The patient was covered in feces when arriving. Right nephrostomy site disconnected ( connecting tube and bag lost by patient). I believe the nephrostomies are relatively recent placements. The patient is constantly trying to stand and urinates on the floor. Seen by Palliative care. Persistent fevers. The patient had treatment for MRSA UTI at [facility] of 7 days. Cultures to date have been negative. Extensive metastatic disease involving inguinal lymph nodes and multiple pathological fractures of the hip, spine, and ribcage. Suspected brain metastasis. Case discussed with Dr. Peterson. Noted team started patient on Aztreonam. Fevers are more likely secondary to the patient cervical cancer and extensive metastatic disease given studies done so far at [facility]. In addition, the patient has a heavy Cocaine use history. Objective - Vital Signs/Intake and Output Vital Signs (last 24 hours): Temp Pulse Resp BP Pulse Ox 101.8 F H 84 19 120/85 96 03/26/17 16:00 03/26/17 16:00 03/26/17 16:00 03/26/17 16:00 03/26/17 16:00 Intake and Output: 03/26/17 03/26/17 06:59 18:59 Intake Total 0 Balance 0 - Medications Medications: Current Medications Acetaminophen (Tylenol 325mg Tab) 650 mg PO Q4H PRN PRN Reason: Fever >100.4 F Last Admin: 03/26/17 15:59 Dose: 650 mg Aspirin (Ecotrin) 81 mg PO DAILY [facility] Last Admin: 03/26/17 12:00 Dose: 81 mg Atorvastatin Calcium (Lipitor) 40 mg PO DIN [facility] Last Admin: 03/25/17 17:11 Dose: 40 mg Heparin Sodium (Porcine) (Heparin) 5,000 units SC Q8 [facility] PRN Reason: Protocol Last Admin: 03/26/17 14:03 Dose: 5,000 units Dextrose/Sodium Chloride (Dextrose 5%/0.45% Ns 1000 Ml) 1,000 mls @ 75 mls/hr IV .[id number] [facility] Last Admin: 03/26/17 05:38 Dose: 75 mls/hr Aztreonam (Azactam 1 Gm) 100 mls @ 100 mls/hr IVPB Q8 [facility] PRN Reason: Protocol Stop: 03/26/17 22:59 Last Admin: 03/26/17 14:05 Dose: 100 mls/hr Lisinopril (Zestril) 20 mg PO DAILY [facility] Last Admin: 03/26/17 11:33 Dose: Not Given Lorazepam (Ativan) 1 mg IVP Q3H PRN; Protocol PRN Reason: Anxiety Last Admin: 03/26/17 15:49 Dose: 1 mg Morphine Sulfate (Morphine) 4 mg IVP Q4H PRN PRN Reason: Pain, moderate (4-7) Last Admin: 03/25/17 15:21 Dose: 4 mg Pantoprazole Sodium (Protonix Ec Tab) 40 mg PO ACB [facility] Last Admin: 03/26/17 08:38 Dose: 40 mg Quetiapine Fumarate (Seroquel) 12.5 mg PO BID [facility] PRN Reason: Protocol Tramadol HCl (Ultram) 50 mg PO TID PRN PRN Reason: Pain, moderate (4-7) Last Admin: 03/26/17 10:06 Dose: 50 mg Ziprasidone (Geodon Inj) 20 mg IM Q8 PRN; Protocol PRN Reason: Agitation - Labs Labs: PT 13.5 SECONDS (9.4-12.5) H 03/24/17 05:25 INR 1.17 (0.93-1.08) H 03/24/17 05:25 APTT 27.8 Seconds (25.1-36.5) 03/24/17 05:25 - Constitutional Appears: Non-toxic, No Acute Distress, Confused, Chronically Ill - Head Exam Head Exam: ATRAUMATIC, NORMOCEPHALIC - Eye Exam Eye Exam: EOMI, PERRL Pupil Exam: NORMAL ACCOMODATION, PERRL - ENT Exam ENT Exam: Mucous Membranes Moist, Normal External Ear Exam, TM's Normal Bilaterally - Neck Exam Neck Exam: Full ROM, Normal Inspection - Respiratory Exam Respiratory Exam: Clear to Ausculation Bilateral, NORMAL BREATHING PATTERN. absent: Rales, Rhonchi, Wheezes - Cardiovascular Exam Cardiovascular Exam: REGULAR RHYTHM, RRR, +S1, +S2 - GI/Abdominal Exam GI & Abdominal Exam: Soft, Normal Bowel Sounds. absent: Distended, Tenderness - Exam Additional comments: bilateral nephrostomy tubes draining deneen urine L>R. - Extremities Exam Extremities Exam: Joint Swelling, Pedal Edema - Neurological Exam Neurological Exam: Alert, Awake, CN II-XII Intact - Psychiatric Exam Psychiatric exam: Agitated, Anxious, Depressed - Skin Skin Exam: Intact, Normal Color Assessment and Plan - Assessment and Plan (Free Text) Assessment: 56 yo AA female with Stage 4 cervical cancer with mets throughout the body with history of hysterectomy. Her treatment was done at [facility] for several years now. The patient has multiple hospitalizations and ER visits to [facility]. 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 The patient with chest discomfort, back pain, and right leg pain on presentation. The patient was in [facility] ER this morning and discharged. Started on Aztreonam and given one dose of Amikacin as discussed with Hospitalist group (Dr. Chappell). Mcclure cultures. Urine cultures negative to date. Still with fevers. Fevers most likely secondary to metastatic cervical cancer (Stage 4). Need records from [facility]... obtained. Patient completed treatment with Vancomycin for MRSA in the urine cultures there for 7 days. Cultures here of blood and urine currently negative. PCN allergies Thank you for allowing me to participate in the care of the patient, we will follow with you.
[2017-03-26 20:02] LABS: PH,URINE 6.5 (4.7-8.0); URINE BILIRUBIN NEGATIVE (NEGATIVE); URINE BLOOD TRACE-INTACT (NEGATIVE); URINE GLUCOSE (UA) NEGATIVE (NEGATIVE); URINE LEUKOCYTE ESTERASE NEGATIVE Leu/uL (NEGATIVE); URINE NITRATE NEGATIVE (NEGATIVE); URINE PROTEIN NEGATIVE mg/dL (<30 mg/dL); URINE UROBILINOGEN 0.2 E.U./dL (<1 E.U./dL)
[2017-03-26 20:03] LABS: URINE APPEARANCE CLEAR (CLEAR); URINE COLOR YELLOW (YELLOW)
[2017-03-26 20:04] LABS: PH,URINE 6.5 (4.7-8.0); URINE APPEARANCE CLEAR (CLEAR); URINE BILIRUBIN NEGATIVE (NEGATIVE); URINE BLOOD SMALL (NEGATIVE); URINE COLOR YELLOW (YELLOW); URINE GLUCOSE (UA) NEGATIVE (NEGATIVE); URINE LEUKOCYTE ESTERASE NEGATIVE Leu/uL (NEGATIVE); URINE NITRATE NEGATIVE (NEGATIVE); URINE PROTEIN NEGATIVE mg/dL (<30 mg/dL); URINE UROBILINOGEN 0.2 E.U./dL (<1 E.U./dL)
[2017-03-27 06:47] LABS: BASO # 0.01 K/mm3 (0.0-2.0); BASO % 0.2 % (0.0-3.0); GRAN # 3.07 (1.4-6.5); GRAN % 68.4 % (50.0-68.0); LYMPH # 1.1 (1.2-3.4); LYMPH % 23.4 % (22.0-35.0); MEAN CELL VOLUME 80.1 fl (80.0-105.0); MEAN CORPUSCULAR HEMOGLOBIN 26.1 pg (25.0-35.0); MEAN CORPUSCULAR HGB CONC 32.7 g/dl (31.0-37.0); MEAN PLATELET VOLUME 8.9 fl (7.0-11.0); MONO # 0.4 (0.1-0.6); RBC 3.06 10^6/uL (3.5-6.1); RED CELL DISTRIBUTION WIDTH 16.6 % (11.5-14.5); WHITE BLOOD COUNT 4.5 10^3/ul (4.5-11.0)
[2017-03-27 07:08] LABS: ALB/GLOB RATIO 0.8 (1.1-1.8); ALBUMIN 2.9 g/dL (3.0-4.8); ALT/SGPT 25 U/L (7-56); AST/SGOT 28 U/L (14-36); BLOOD UREA NITROGEN 15 mg/dL (7-21); CALCIUM 8.9 mg/dL (8.4-10.5); GFR AFRICAN-AMERICAN > 60; GFR NON-AFRICAN AMERICAN > 60; MAGNESIUM 1.8 mg/dL (1.7-2.2)
[2017-03-27] MEDS ORDERED: Potassium Chloride 20 mEq ER Tab PO ONE (08:10)
[2017-03-27] MEDS: Pantoprazole 40 mg EC Tab PO SCH (08:40)
--- NOTE | 2017-03-27 10:25 | RAD ---
HISTORY: COMPARISON: 03/24/2017. TECHNIQUE: Chest PA and lateral FINDINGS: LINES AND TUBES: The right MediPort terminates at the cavoatrial junction. LUNG AND PLEURA: The lungs are well inflated. There is mild pulmonary venous congestion. No focal consolidation. HEART AND MEDIASTINUM: There is stable mild cardiomegaly. The hilar and mediastinal contours are within normal limits. SKELETAL STRUCTURES: The bony structures are within normal limits for the patient's age. VISUALIZED UPPER ABDOMEN: Normal. OTHER FINDINGS: None. IMPRESSION: Persistent mild cardiomegaly and pulmonary venous congestion. No evidence of lobar pneumonia.
--- NOTE | 2017-03-27 10:29 | CP.PCM.PN ---
<NahomiSocrates - Last Filed: 03/27/17 10:22> Subjective - Date & Time of Evaluation Date of Evaluation: 03/27/17 Time of Evaluation: 07:22 - Subjective Subjective: Socrates Comer PGY1 IM Progress Note Patient was seen and examined at bedside. Patient is less anxious than before. She states that she is pain and feels the need to stand up to shake her legs off. she states that she keeps urinating on herself but denies any blood. She asked whether she is alright with having MRI, but she states that she will need to be knocked out before sitting through them because she gets very anxious. Patient denies fevers/chills, n/v/d, chest pain. Objective - Vital Signs/Intake and Output Vital Signs (last 24 hours): Temp Pulse Resp BP Pulse Ox 98.9 F 99 H 18 120/86 96 03/27/17 08:42 03/27/17 09:24 03/26/17 23:30 03/27/17 09:24 03/26/17 16:00 Intake and Output: 03/27/17 03/27/17 06:59 18:59 Intake Total 540 0 Balance 540 0 - Medications Medications: Current Medications Acetaminophen (Tylenol 325mg Tab) 650 mg PO Q4H PRN PRN Reason: Fever >100.4 F Last Admin: 03/27/17 08:39 Dose: 650 mg Aspirin (Ecotrin) 81 mg PO DAILY [facility] Last Admin: 03/27/17 09:21 Dose: 81 mg Atorvastatin Calcium (Lipitor) 40 mg PO DIN [facility] Last Admin: 03/26/17 18:27 Dose: 40 mg Clonazepam (Klonopin) 0.5 mg PO TID [facility] PRN Reason: Protocol Heparin Sodium (Porcine) (Heparin) 5,000 units SC Q8 [facility] PRN Reason: Protocol Last Admin: 03/27/17 06:15 Dose: 5,000 units Dextrose/Sodium Chloride (Dextrose 5%/0.45% Ns 1000 Ml) 1,000 mls @ 75 mls/hr IV .[id number] [facility] Last Admin: 03/26/17 18:45 Dose: 75 mls/hr Lisinopril (Zestril) 20 mg PO DAILY [facility] Last Admin: 03/27/17 09:24 Dose: 20 mg Lorazepam (Ativan) 1 mg IVP Q3H PRN; Protocol PRN Reason: Anxiety Last Admin: 03/27/17 09:23 Dose: 1 mg Morphine Sulfate (Morphine) 4 mg IVP Q4H PRN PRN Reason: Pain, moderate (4-7) Last Admin: 03/25/17 15:21 Dose: 4 mg Pantoprazole Sodium (Protonix Ec Tab) 40 mg PO ACB [facility] Last Admin: 03/27/17 08:40 Dose: 40 mg Quetiapine Fumarate (Seroquel) 12.5 mg PO BID [facility] PRN Reason: Protocol Last Admin: 03/27/17 09:21 Dose: 12.5 mg Quetiapine Fumarate (Seroquel) 25 mg PO HS [facility] PRN Reason: Protocol Tramadol HCl (Ultram) 50 mg PO TID PRN PRN Reason: Pain, moderate (4-7) Last Admin: 03/27/17 01:55 Dose: 50 mg Ziprasidone (Geodon Inj) 20 mg IM Q8 PRN; Protocol PRN Reason: Agitation - Labs Labs: 03/27/17 06:10 03/27/17 06:10 PT 13.5 SECONDS (9.4-12.5) H 03/24/17 05:25 INR 1.17 (0.93-1.08) H 03/24/17 05:25 APTT 27.8 Seconds (25.1-36.5) 03/24/17 05:25 - Additional Findings Additional findings: - Constitutional Appears: No Acute Distress, Unkempt, Confused - Head Exam Head Exam: NORMAL INSPECTION - Eye Exam Eye Exam: EOMI, Normal appearance - ENT Exam ENT Exam: Mucous Membranes Moist - Neck Exam Neck Exam: Normal Inspection - Respiratory Exam Respiratory Exam: Clear to Ausculation Bilateral, NORMAL BREATHING PATTERN. absent: Wheezes - Cardiovascular Exam Cardiovascular Exam: RRR, +S1, +S2 - GI/Abdominal Exam GI & Abdominal Exam: Soft, Normal Bowel Sounds. absent: Distended, Tenderness - Extremities Exam Extremities Exam: Full ROM, Normal Inspection. absent: Pedal Edema - Back Exam Back Exam: absent: CVA Tenderness (L & R) Additional comments: b/l nephrostomy tubes draining into bags, urine is clear with no blood noted - Neurological Exam Neurological Exam: Alert, Awake Additional comments: aphasic, slurring speech - Psychiatric Exam Psychiatric exam: Normal Affect, Anxious - Skin Skin Exam: Normal Color, Warm Assessment and Plan - Assessment and Plan (Free Text) Assessment: 56 AA F with a PMHx of progressive stage 4 cervical CA with mets (most recently evaluated by [facility]), b/l nephrostomy tubes, alcohol abuse, cocaine abuse, hypertension, CVA with residual left sided weakness, and depression presented to the [facility] with complaints of chest discomfort, Rt leg pain and back pain. Currently having intermittent fevers, possible cause is nephrostomy tubes. Per [facility] records which were faxed to us, patient has very advanced cervical cancer w/ mets to other sites and bl nephrostomy tubes. Recently (records indicate 03/11/17 admission date), the patient was admitted and treated for uretral infection w/ MRSA and enterococci with 7 days Vancomycin but refused to have the tubes replaced; patient ended up eloping. According to their physicians, the patient is nearing hospice, although not quite there yet. Patient's current fevers likely 2/2 cancer, since procal is low and cultures negative so far; 3 urine cultures pending. Plan: 1. Back pain s/p bilateral nephrostomy, with replacement bag placed on R nephrostomy tube by our nurses Scans from [place] indicate R inferior and superior pubic rami pathologic fractures (possibly 2/2 post-radiation). Compression fracture in superior endplate of L3. IR consulted, recs appreciated regarding need of nephrostomy tubes given that patient is able to urinate normally CT abd/pelvis by IR to evaluate nephrotostomy tubes pending, patient is anxious and refuses, will likely require sedation ID consulted, recs appreciated 2. Stage 4 cervical cancer with mets evaluated and managed at [facility] and most recently [facility] patient was DNR/DNI in [facility] and daughter confirmed this in conversation yesterday Palliative care- Christel Varela consulted, goals of care [facility] recommended hospice care at [facility] medical record obtained from [place]- CT abd/pelvis shows interval progression of disease with suggestion of masses along the vagina. enlarged r external iliac and groin lymph nodes consistent w/ mets. Anterior bladder wall thickening and edema and stranding in anterior pelvic wall could represent post- treatment changes. 3. Urinary retention w/ intermittent fevers 2/2 cervical ca with mets, mass compressed causing retention and bleeding bilateral nephrostomy tubes, both draining well possible UTI from tubes urine cultures sent from 2 tubes and urethra d/c Azactam IR consult Dr. Munroe ID consulted, recs appreciated 4. Rt Lower extremity pain hx of stage 4 cervical ca with mets ambulates with cane pt/ot eval (recommending [facility] vs [facility]/hospice) SW eval placed 5. CVA with residual Left sided weakness conitnue asa, lipitor PT/OT eval 6. Polysubstance abuse Utox + cocaine admitted to cocaine and etoh use day before admission [facility]WA Ativan prn cocaine/etoh withdrawal 7. Schizophrenia/Agitation Dr. Cantrell consulted will follow up recommendations Per psych, patient is not suitable for inpatient admission, they started Seroquel 12.5mg BID and added 25mg HS Ativan/Geodon PRN agitation 8. PTX/Heparin for GI/DVT ppx Patient was seen, examined and discussed with attending, Dr. Nicholas Comer PGY1 Pager # [phone] <Ines Peterson - Last Filed: 03/27/17 16:58> Objective - Vital Signs/Intake and Output Vital Signs (last 24 hours): Temp Pulse Resp BP Pulse Ox 101.2 F H 66 18 120/86 96 03/27/17 16:27 03/27/17 10:00 03/26/17 23:30 03/27/17 09:24 03/26/17 16:00 Intake and Output: 03/27/17 03/27/17 06:59 18:59 Intake Total 540 725 Output Total 500 Balance 540 225 - Medications Medications: Current Medications Acetaminophen (Tylenol 325mg Tab) 650 mg PO Q4H PRN PRN Reason: Fever >100.4 F Last Admin: 03/27/17 16:27 Dose: 650 mg Aspirin (Ecotrin) 81 mg PO DAILY [facility] Last Admin: 03/27/17 09:21 Dose: 81 mg Atorvastatin Calcium (Lipitor) 40 mg PO DIN [facility] Last Admin: 03/26/17 18:27 Dose: 40 mg Clonazepam (Klonopin) 0.5 mg PO TID [facility] PRN Reason: Protocol Last Admin: 03/27/17 14:37 Dose: 0.5 mg Heparin Sodium (Porcine) (Heparin) 5,000 units SC Q8 [facility] PRN Reason: Protocol Last Admin: 03/27/17 14:37 Dose: 5,000 units Dextrose/Sodium Chloride (Dextrose 5%/0.45% Ns 1000 Ml) 1,000 mls @ 75 mls/hr IV .[id number] [facility] Last Admin: 03/27/17 14:41 Dose: Not Given Lisinopril (Zestril) 20 mg PO DAILY [facility] Last Admin: 03/27/17 09:24 Dose: 20 mg Lorazepam (Ativan) 1 mg IVP Q3H PRN; Protocol PRN Reason: Anxiety Last Admin: 03/27/17 13:09 Dose: 1 mg Morphine Sulfate (Morphine) 4 mg IVP Q4H PRN PRN Reason: Pain, moderate (4-7) Last Admin: 03/25/17 15:21 Dose: 4 mg Pantoprazole Sodium (Protonix Ec Tab) 40 mg PO ACB [facility] Last Admin: 03/27/17 08:40 Dose: 40 mg Quetiapine Fumarate (Seroquel) 12.5 mg PO BID [facility] PRN Reason: Protocol Last Admin: 03/27/17 09:21 Dose: 12.5 mg Quetiapine Fumarate (Seroquel) 25 mg PO HS [facility] PRN Reason: Protocol Tramadol HCl (Ultram) 50 mg PO TID PRN PRN Reason: Pain, moderate (4-7) Last Admin: 03/27/17 01:55 Dose: 50 mg Ziprasidone (Geodon Inj) 20 mg IM Q8 PRN; Protocol PRN Reason: Agitation - Labs Labs: 03/27/17 06:10 03/27/17 06:10 PT 13.5 SECONDS (9.4-12.5) H 03/24/17 05:25 INR 1.17 (0.93-1.08) H 03/24/17 05:25 APTT 27.8 Seconds (25.1-36.5) 03/24/17 05:25 Attending/Attestation - Attestation I have personally seen and examined this patient.: Yes I have fully participated in the care of the patient.: Yes I have reviewed all pertinent clinical information, including history, physical exam and plan: Yes Notes (Text): I have seen and examined the patient at bedside. Agree with the above note with the following additions/ exceptions: Briefly this is 56 year old female with history of stage 4 cervical cancer with mets, schizophrenia, bilateral nephrostomy tube placement, alcohol abuse, cocaine abuse, hypertension, CVA with residual left sided weakness, and depression presented to the [facility] with complaints of generalized pain. Records from [facility] reviewed. Patient eloped from the hospital due to her anxiety. Patient is not actively getting treatment for cancer. She is DNR, DNI. She was made hospice during her last hospitalization. Patients daughter cannot come to the hospital due to her health issues however daughter wants patient to go to rehab as she is unable to take care of her mom. Discussed with Dr Cantrell and Lori PROGRAM PARAPROFESSIONAL in detail. Klonopin and seroquel was started for agitation. She continues to have fever most likely due to metastatic disease. Prognosis is poor. Upon discharge patient will follow up with Dr Cintron? Dr Ines Peterson
--- NOTE | 2017-03-27 14:20 | CP.PCM.PN ---
Subjective - Date & Time of Evaluation Date of Evaluation: 03/27/17 Time of Evaluation: 13:00 - Subjective Subjective: lethrgic> Whe Objective - Vital Signs/Intake and Output Vital Signs (last 24 hours): Temp Pulse Resp BP Pulse Ox 98.9 F 99 H 18 120/86 96 03/27/17 08:42 03/27/17 09:24 03/26/17 23:30 03/27/17 09:24 03/26/17 16:00 Intake and Output: 03/27/17 03/27/17 06:59 18:59 Intake Total 540 0 Balance 540 0 - Medications Medications: Current Medications Acetaminophen (Tylenol 325mg Tab) 650 mg PO Q4H PRN PRN Reason: Fever >100.4 F Last Admin: 03/27/17 08:39 Dose: 650 mg Aspirin (Ecotrin) 81 mg PO DAILY [facility] Last Admin: 03/27/17 09:21 Dose: 81 mg Atorvastatin Calcium (Lipitor) 40 mg PO DIN [facility] Last Admin: 03/26/17 18:27 Dose: 40 mg Clonazepam (Klonopin) 0.5 mg PO TID [facility] PRN Reason: Protocol Heparin Sodium (Porcine) (Heparin) 5,000 units SC Q8 [facility] PRN Reason: Protocol Last Admin: 03/27/17 06:15 Dose: 5,000 units Dextrose/Sodium Chloride (Dextrose 5%/0.45% Ns 1000 Ml) 1,000 mls @ 75 mls/hr IV .[id number] [facility] Last Admin: 03/26/17 18:45 Dose: 75 mls/hr Lisinopril (Zestril) 20 mg PO DAILY [facility] Last Admin: 03/27/17 09:24 Dose: 20 mg Lorazepam (Ativan) 1 mg IVP Q3H PRN; Protocol PRN Reason: Anxiety Last Admin: 03/27/17 13:09 Dose: 1 mg Morphine Sulfate (Morphine) 4 mg IVP Q4H PRN PRN Reason: Pain, moderate (4-7) Last Admin: 03/25/17 15:21 Dose: 4 mg Pantoprazole Sodium (Protonix Ec Tab) 40 mg PO ACB [facility] Last Admin: 03/27/17 08:40 Dose: 40 mg Quetiapine Fumarate (Seroquel) 12.5 mg PO BID [facility] PRN Reason: Protocol Last Admin: 03/27/17 09:21 Dose: 12.5 mg Quetiapine Fumarate (Seroquel) 25 mg PO HS [facility] PRN Reason: Protocol Tramadol HCl (Ultram) 50 mg PO TID PRN PRN Reason: Pain, moderate (4-7) Last Admin: 03/27/17 01:55 Dose: 50 mg Ziprasidone (Geodon Inj) 20 mg IM Q8 PRN; Protocol PRN Reason: Agitation - Labs Labs: 03/27/17 06:10 03/27/17 06:10 PT 13.5 SECONDS (9.4-12.5) H 03/24/17 05:25 INR 1.17 (0.93-1.08) H 03/24/17 05:25 APTT 27.8 Seconds (25.1-36.5) 03/24/17 05:25 Assessment and Plan - Assessment and Plan (Free Text) Assessment: 56 year old female with history of advanced cervical cancer, shizophrenia, bilateral nephrostomy tubes, who was admitted with altered mental status, The patient lethargic but becomes anxious when trying to discuss goals of care. Unable to focus on topic at hand. I spoke with patient's daughter, Bernice Pablo via phone. Daughter states she is unable to visit because she had a hysterectomy this week and is unable to drive. Daughter expressed concern about her mother's situation. We spoke at length about her mother's medical condition and mental status. Daughter states that her mother's behavior became erratic after learning that he cancer had worsened.Daughter states that mother became very frightened of being alone and afraid of suffering with her disease. Daughter states that when her mother was in better state of mind they had discussed resuscitation wishes. Daughter states that her mother did not want to be resuscitated by CPR or with breathing tube/machines. Daughter also mentioned that at the previous hospital, the plan was to send her mother to [facility] and then transition to hospice care. Daughter is hopeful that this plan is still possible. Daughter is appreciative o our conversation. Affirms that her mother is to be DNR/DNI status. Dr. Comer spoke with daughter Bernice who also affirmed that patient is to be DNR/DNI Time spent in goals of care and advance care planning discussion Plan: Goals of care, advance care planning Psych follow up
[2017-03-27] MEDS: Dextrose 5%/0.45% NS 1,000 ML IV SCH ×2 (14:41→22:48)
--- NOTE | 2017-03-27 14:45 | CP.PCM.PN ---
Subjective - Date & Time of Evaluation Date of Evaluation: 03/27/17 Time of Evaluation: 13:00 - Subjective Subjective: Infectious Disease Follow Up: March 27, 2017 56 yo AA female with stage 4 cervical cancer with mets (evaluated and treated at [facility] in [place]) presenting with chest pain to [facility] evaluated than discharged from there this morning. The patient is currently complaining of chest discomfort, right leg pain, and back pain. She has nephrostomy tubes bilaterally which are not documented in prior [facility] records (last hospitalization there is October 2016). The patient is abusive is speech and limiting examination. The patient was covered in feces when arriving. Right nephrostomy site disconnected ( connecting tube and bag lost by patient). I believe the nephrostomies are relatively recent placements. The patient is constantly trying to stand and urinates on the floor. Seen by Palliative care. Persistent fevers. The patient had treatment for MRSA UTI at [facility] of 7 days. Cultures to date have been negative. Extensive metastatic disease involving inguinal lymph nodes and multiple pathological fractures of the hip, spine, and ribcage. Suspected brain metastasis. Case discussed with Dr. Peterson. Noted team started patient on Aztreonam. Fevers are more likely secondary to the patient cervical cancer and extensive metastatic disease given studies done so far at [facility]. In addition, the patient has a heavy Cocaine use history. Daughter did confirm DNI/DNR status. Objective - Vital Signs/Intake and Output Vital Signs (last 24 hours): Temp Pulse Resp BP Pulse Ox 98.9 F 99 H 18 120/86 96 03/27/17 08:42 03/27/17 09:24 03/26/17 23:30 03/27/17 09:24 03/26/17 16:00 Intake and Output: 03/27/17 03/27/17 06:59 18:59 Intake Total 540 725 Output Total 500 Balance 540 225 - Medications Medications: Current Medications Acetaminophen (Tylenol 325mg Tab) 650 mg PO Q4H PRN PRN Reason: Fever >100.4 F Last Admin: 03/27/17 08:39 Dose: 650 mg Aspirin (Ecotrin) 81 mg PO DAILY [facility] Last Admin: 03/27/17 09:21 Dose: 81 mg Atorvastatin Calcium (Lipitor) 40 mg PO DIN [facility] Last Admin: 03/26/17 18:27 Dose: 40 mg Clonazepam (Klonopin) 0.5 mg PO TID [facility] PRN Reason: Protocol Heparin Sodium (Porcine) (Heparin) 5,000 units SC Q8 [facility] PRN Reason: Protocol Last Admin: 03/27/17 06:15 Dose: 5,000 units Dextrose/Sodium Chloride (Dextrose 5%/0.45% Ns 1000 Ml) 1,000 mls @ 75 mls/hr IV .[id number] [facility] Last Admin: 03/26/17 18:45 Dose: 75 mls/hr Lisinopril (Zestril) 20 mg PO DAILY [facility] Last Admin: 03/27/17 09:24 Dose: 20 mg Lorazepam (Ativan) 1 mg IVP Q3H PRN; Protocol PRN Reason: Anxiety Last Admin: 03/27/17 13:09 Dose: 1 mg Morphine Sulfate (Morphine) 4 mg IVP Q4H PRN PRN Reason: Pain, moderate (4-7) Last Admin: 03/25/17 15:21 Dose: 4 mg Pantoprazole Sodium (Protonix Ec Tab) 40 mg PO ACB [facility] Last Admin: 03/27/17 08:40 Dose: 40 mg Quetiapine Fumarate (Seroquel) 12.5 mg PO BID [facility] PRN Reason: Protocol Last Admin: 03/27/17 09:21 Dose: 12.5 mg Quetiapine Fumarate (Seroquel) 25 mg PO HS [facility] PRN Reason: Protocol Tramadol HCl (Ultram) 50 mg PO TID PRN PRN Reason: Pain, moderate (4-7) Last Admin: 03/27/17 01:55 Dose: 50 mg Ziprasidone (Geodon Inj) 20 mg IM Q8 PRN; Protocol PRN Reason: Agitation - Labs Labs: 03/27/17 06:10 03/27/17 06:10 PT 13.5 SECONDS (9.4-12.5) H 03/24/17 05:25 INR 1.17 (0.93-1.08) H 03/24/17 05:25 APTT 27.8 Seconds (25.1-36.5) 03/24/17 05:25 - Constitutional Appears: Non-toxic, No Acute Distress, Chronically Ill - Head Exam Head Exam: ATRAUMATIC, NORMOCEPHALIC - Eye Exam Eye Exam: EOMI, PERRL Pupil Exam: NORMAL ACCOMODATION, PERRL - ENT Exam ENT Exam: Mucous Membranes Moist, Normal External Ear Exam, TM's Normal Bilaterally - Neck Exam Neck Exam: Full ROM, Normal Inspection - Respiratory Exam Respiratory Exam: Clear to Ausculation Bilateral, NORMAL BREATHING PATTERN. absent: Rales, Rhonchi, Wheezes - Cardiovascular Exam Cardiovascular Exam: REGULAR RHYTHM, RRR, +S1, +S2 - GI/Abdominal Exam GI & Abdominal Exam: Soft, Normal Bowel Sounds. absent: Distended, Tenderness - Exam Additional comments: bilateral nephrostomy tubes draining deneen urine L>R. - Extremities Exam Extremities Exam: Joint Swelling, Pedal Edema - Neurological Exam Neurological Exam: Alert, Awake, CN II-XII Intact - Psychiatric Exam Psychiatric exam: Agitated, Anxious, Depressed - Skin Skin Exam: Intact, Normal Color Assessment and Plan - Assessment and Plan (Free Text) Assessment: 56 yo AA female with Stage 4 cervical cancer with mets throughout the body with history of hysterectomy. Her treatment was done at [facility] for several years now. The patient has multiple hospitalizations and ER visits to [facility]. 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 The patient with chest discomfort, back pain, and right leg pain on presentation. The patient was in [facility] ER this morning and discharged. Started on Aztreonam and given one dose of Amikacin as discussed with Hospitalist group (Dr. Chappell). Mcclure cultures. Urine cultures negative to date. Still with fevers. Fevers most likely secondary to metastatic cervical cancer (Stage 4). Need records from [facility]... obtained. Patient completed treatment with Vancomycin for MRSA in the urine cultures there for 7 days. Cultures here of blood and urine currently negative. Antibiotics stopped. PCN allergies Thank you for allowing me to participate in the care of the patient, we will follow with you.
[2017-03-27 18:30] VITALS: RESP 20
[2017-03-27 20:06] LABS: BASO # 0.01 K/mm3 (0.0-2.0); BASO % 0.3 % (0.0-3.0); EOS % 0.3 % (1.5-5.0); GRAN # 2.23 (1.4-6.5); GRAN % 66.2 % (50.0-68.0); LYMPH # 0.8 (1.2-3.4); MEAN CELL VOLUME 80.2 fl (80.0-105.0); MEAN CORPUSCULAR HEMOGLOBIN 26.3 pg (25.0-35.0); MEAN CORPUSCULAR HGB CONC 32.8 g/dl (31.0-37.0); MEAN PLATELET VOLUME 9.1 fl (7.0-11.0); MONO # 0.3 (0.1-0.6); MONO % 9.2 % (1.0-6.0); RBC 2.93 10^6/uL (3.5-6.1); RED CELL DISTRIBUTION WIDTH 16.6 % (11.5-14.5); WHITE BLOOD COUNT 3.4 10^3/ul (4.5-11.0)
[2017-03-27 20:14] LABS: HEMOGLOBIN 7.7 g/dL (12.0-16.0)
--- NOTE | 2017-03-27 23:14 | CT ---
EXAM: CT Head Without Intravenous Contrast CLINICAL HISTORY: 56 years old, female; Signs and symptoms; Other: R/O mets TECHNIQUE: Axial computed tomography images of the head/brain without intravenous contrast. All CT scans at this facility use one or more dose reduction techniques, viz.: automated exposure control; ma/kV adjustment per patient size (including targeted exams where dose is matched to indication; i.e. head); or iterative reconstruction technique. Coronal and sagittal reformatted images were created and reviewed. COMPARISON: CT - HEAD W/O (CODE STROKE) 2016-11-05 05:04 FINDINGS: Brain: Rfsw-jc-[id number] atrophy. No intracranial hemorrhage. No definite mass. Few scattered foci of decreased attenuation within periventricular/subcortical white matter. Probable chronic lacunar infarcts within basal ganglia/thalami. No definite edema. Ventricles: No hydrocephalus. Bones/joints: No acute fracture. Degenerative changes of temporomandibular joints. Soft tissues: Unremarkable. Vasculature: Minimal atherosclerotic disease of intracranial arteries. Sinuses: Scattered minimal to mild mucosal thickening. Mastoid air cells: No mastoid effusion. Orbits: Postsurgical changes of left globe. IMPRESSION: 1. Nonspecific white matter changes. Acute infarction may be CT occult within first 24 hours. If a focal deficit persists, consider followup CT or MRI for further evaluation. 2. If there remains clinical concern for metastases, recommend contrast MRI. 3. Incidental/non-acute findings are described above.
[2017-03-28 01:33] LABS: BASO # 0.01 K/mm3 (0.0-2.0); BASO % 0.2 % (0.0-3.0); EOS % 0.2 % (1.5-5.0); GRAN # 2.91 (1.4-6.5); LYMPH # 0.9 (1.2-3.4); LYMPH % 21.4 % (22.0-35.0); MEAN CELL VOLUME 81.1 fl (80.0-105.0); MEAN CORPUSCULAR HEMOGLOBIN 26.2 pg (25.0-35.0); MEAN CORPUSCULAR HGB CONC 32.3 g/dl (31.0-37.0); MONO # 0.3 (0.1-0.6); MONO % 8.2 % (1.0-6.0); RBC 3.44 10^6/uL (3.5-6.1); RED CELL DISTRIBUTION WIDTH 16.8 % (11.5-14.5); WHITE BLOOD COUNT 4.2 10^3/ul (4.5-11.0)
[2017-03-28] MEDS: Pantoprazole 40 mg EC Tab PO SCH (07:59)
--- NOTE | 2017-03-28 09:18 | PN ---
DATE: 03/27/2017 She is being seen today for a followup consultation. PRESENTATION: The patient is a 56-year-old female, seen at bedside. She is anxious. Her mood is labile and she is very, very preoccupied with the facts that she wants to see a social security assessor to make sure her money goes to her daughter, so her daughter will have money, so she can pay her bills, very preoccupied with this circular conversation; however, she is more easily calm today and appears to be less frenetic and that she is able to sit still and talk with me rather than standing up and shifting from foot to foot and trying to walking constantly. The medical team continues to be concerned about her level of anxiety and her history of schizophrenia. I am planning to increase her Seroquel today as she appears to be tolerating it well. It does not appear to be causing her any difficulties in terms of dizziness or unsteadiness and she does appear to be some degree calmer than she was. CURRENT VITAL SIGNS: Temperature of 98.9, pulse of 99, blood pressure of 120/86. MENTAL STATUS EXAM: The patient is alert and oriented x1, as this appears to be her baseline. She is trying to be cooperative. Her speech is a little bit garbled due to the stroke. Her mood is anxious. Her affect is constricted. Her thoughts are simplistic, repetitive and goal-directed. She denies being suicidal or homicidal. Denies the presence of hallucinations, delusions or paranoia. Her concentration and her focus are poor. Memory both short and long-term have deficits. Her appetite is good and she slept part of the night, but required Ativan prn to sleep; complaining of pain in both legs. The patient's latest clean catch urine from yesterday indicates no growth. DIAGNOSTIC IMPRESSION: Cocaine abuse, alcohol abuse, mood disorder with anxiety related to medical conditions, stroke and cancer. PLAN: The patient continues to deny being suicidal or homicidal and does not appear in any imminent danger of hurting herself or others. Her Seroquel was increased today to 12.5 mg b.i.d. and 25 mg at bedtime. We will continue to follow. This case has been discussed with Dr. Groves. Thank you for the consult. Lori Kilpatrick APN [facility] # [id number] ZAK
[2017-03-28] MEDS: Dextrose 5%/0.45% NS 1,000 ML IV SCH (11:37)
--- NOTE | 2017-03-28 13:49 | CP.PCM.PN ---
<Socrates Comer - Last Filed: 03/28/17 16:12> Subjective - Date & Time of Evaluation Date of Evaluation: 03/28/17 Time of Evaluation: 10:49 - Subjective Subjective: Socrates Comer PGY1 IM Progress Note Patient was seen and examined at bedside. Patient is less anxious than before, and verbalized that she feels weak and that she has a dry cough. Patient denies fevers/chills, n/v/d, chest pain. Objective - Vital Signs/Intake and Output Vital Signs (last 24 hours): Temp Pulse Resp BP Pulse Ox 98.2 F 98 H 20 122/77 97 03/28/17 09:19 03/28/17 09:48 03/28/17 09:19 03/28/17 09:48 03/28/17 09:19 Intake and Output: 03/28/17 03/28/17 06:59 18:59 Intake Total 1740 Balance 1740 - Medications Medications: Current Medications Acetaminophen (Tylenol 325mg Tab) 650 mg PO Q4H PRN PRN Reason: Fever >100.4 F Last Admin: 03/28/17 11:37 Dose: 650 mg Aspirin (Ecotrin) 81 mg PO DAILY [facility] Last Admin: 03/28/17 09:48 Dose: 81 mg Atorvastatin Calcium (Lipitor) 40 mg PO DIN [facility] Last Admin: 03/27/17 17:24 Dose: 40 mg Clonazepam (Klonopin) 0.5 mg PO TID [facility] PRN Reason: Protocol Last Admin: 03/28/17 09:49 Dose: 0.5 mg Heparin Sodium (Porcine) (Heparin) 5,000 units SC Q8 [facility] PRN Reason: Protocol Last Admin: 03/28/17 05:44 Dose: Not Given Dextrose/Sodium Chloride (Dextrose 5%/0.45% Ns 1000 Ml) 1,000 mls @ 75 mls/hr IV .[id number] [facility] Last Admin: 03/28/17 11:37 Dose: 75 mls/hr Lisinopril (Zestril) 20 mg PO DAILY [facility] Last Admin: 03/28/17 09:48 Dose: 20 mg Lorazepam (Ativan) 1 mg IVP Q3H PRN; Protocol PRN Reason: Anxiety Last Admin: 03/28/17 08:30 Dose: 1 mg Pantoprazole Sodium (Protonix Ec Tab) 40 mg PO ACB [facility] Last Admin: 03/28/17 07:59 Dose: 40 mg Quetiapine Fumarate (Seroquel) 12.5 mg PO BID [facility] PRN Reason: Protocol Last Admin: 03/28/17 09:50 Dose: 12.5 mg Quetiapine Fumarate (Seroquel) 25 mg PO HS [facility] PRN Reason: Protocol Last Admin: 03/27/17 21:27 Dose: 25 mg Tramadol HCl (Ultram) 50 mg PO TID PRN PRN Reason: Pain, moderate (4-7) Last Admin: 03/28/17 05:47 Dose: 50 mg Ziprasidone (Geodon Inj) 20 mg IM Q8 PRN; Protocol PRN Reason: Agitation - Labs Labs: 03/28/17 01:00 03/27/17 06:10 PT 13.5 SECONDS (9.4-12.5) H 03/24/17 05:25 INR 1.17 (0.93-1.08) H 03/24/17 05:25 APTT 27.8 Seconds (25.1-36.5) 03/24/17 05:25 - Additional Findings Additional findings: - Constitutional Appears: No Acute Distress, Unkempt, Confused - Head Exam Head Exam: NORMAL INSPECTION - Eye Exam Eye Exam: EOMI, Normal appearance - ENT Exam ENT Exam: Mucous Membranes Moist - Neck Exam Neck Exam: Normal Inspection - Respiratory Exam Respiratory Exam: Clear to Ausculation Bilateral, NORMAL BREATHING PATTERN. absent: Wheezes - Cardiovascular Exam Cardiovascular Exam: RRR, +S1, +S2 - GI/Abdominal Exam GI & Abdominal Exam: Soft, Normal Bowel Sounds. absent: Distended, Tenderness - Extremities Exam Extremities Exam: Full ROM, Normal Inspection. absent: Pedal Edema - Back Exam Back Exam: absent: CVA Tenderness (L & R) Additional comments: b/l nephrostomy tubes draining into bags, urine is clear with no blood noted - Neurological Exam Neurological Exam: Alert, Awake Additional comments: aphasic, slurring speech - Psychiatric Exam Psychiatric exam: Normal Affect, Anxious - Skin Skin Exam: Normal Color, Warm Assessment and Plan - Assessment and Plan (Free Text) Assessment: 56 AA F with a PMHx of progressive stage 4 cervical CA with mets (most recently evaluated by [facility]), b/l nephrostomy tubes, alcohol abuse, cocaine abuse, hypertension, CVA with residual left sided weakness, and depression presented to the [facility] [place] ED with complaints of chest discomfort, Rt leg pain and back pain. Currently having intermittent fevers, possible cause is nephrostomy tubes. Per [facility] records which were faxed to us, patient has very advanced cervical cancer w/ mets to other sites and bl nephrostomy tubes. Recently (records indicate 03/11/17 admission date), the patient was admitted and treated for uretral infection w/ MRSA and enterococci with 7 days Vancomycin but refused to have the tubes replaced; patient ended up eloping. According to their physicians, the patient is nearing hospice, although not quite there yet. Patient's current fevers likely 2/2 cancer, since procal is low and cultures negative so far. Patient made DNR/DNI. Plan: 1. Back pain s/p bilateral nephrostomy, with replacement bag placed on R nephrostomy tube by our nurses Scans from [facility] indicate R inferior and superior pubic rami pathologic fractures (possibly 2/2 post-radiation). Compression fracture in superior endplate of L3. IR consulted, rec no current intervention CT abd/pelvis by IR to evaluate nephrotostomy tubes pending, patient is anxious and refuses, will likely require sedation ID consulted, recs appreciated 2. Stage 4 cervical cancer with mets patient made DNR/DNI evaluated and managed at [facility] and most recently [facility] patient was DNR/DNI in [facility] and daughter confirmed this in conversation with multiple physicians Palliative care- Christel Varela consulted, goals of care [facility] recommended hospice care at [facility] medical record obtained from [facility]- CT abd/pelvis shows interval progression of disease with suggestion of masses along the vagina. enlarged r external iliac and groin lymph nodes consistent w/ mets. Anterior bladder wall thickening and edema and stranding in anterior pelvic wall could represent post- treatment changes. SW working on placement for patient 3. Urinary retention w/ intermittent fevers 2/2 cervical ca with mets, mass compressed causing retention and bleeding bilateral nephrostomy tubes, both draining well urine cultures negative d/c antibiotics IR consulted, rec no current intervention ID consulted, recs appreciated 4. Rt Lower extremity pain hx of stage 4 cervical ca with mets ambulates with cane pt/ot eval (recommending [facility] vs [facility]/hospice) SW eval placed 5. CVA with residual Left sided weakness continue asa, lipitor PT/OT eval CT head showed nonspecific white matter changes but clinical suspicion for CVA is low 6. Polysubstance abuse Utox + cocaine admitted to cocaine and etoh use day before admission [facility] Ativan prn cocaine/etoh withdrawal 7. Schizophrenia/Agitation Dr. Cantrell consulted will follow up recommendations Per psych, patient is not suitable for inpatient admission, they started Seroquel 12.5mg BID and added 25mg HS which patient is responding to, will continue Ativan/Geodon PRN agitation 8. PTX/Heparin for GI/DVT ppx Patient was seen, examined and discussed with attending, Dr. Nicholas Comer PGY1 Pager # [phone] <Ines Peterson - Last Filed: 03/29/17 12:31> Objective - Vital Signs/Intake and Output Vital Signs (last 24 hours): Temp Pulse Resp BP Pulse Ox 98.8 F 63 20 100/58 L 95 03/28/17 16:00 03/28/17 16:00 03/28/17 16:00 03/28/17 16:00 03/28/17 16:00 - Labs Labs: 03/28/17 01:00 03/27/17 06:10 PT 13.5 SECONDS (9.4-12.5) H 03/24/17 05:25 INR 1.17 (0.93-1.08) H 03/24/17 05:25 APTT 27.8 Seconds (25.1-36.5) 03/24/17 05:25 Attending/Attestation - Attestation I have personally seen and examined this patient.: Yes I have fully participated in the care of the patient.: Yes I have reviewed all pertinent clinical information, including history, physical exam and plan: Yes Notes (Text): I have seen and examined the patient at bedside. Agree with the above note with the following additions/ exceptions: Briefly this is 56 year old female with history of stage 4 cervical cancer with mets, schizophrenia, bilateral nephrostomy tube placement, alcohol abuse, cocaine abuse, hypertension, CVA with residual left sided weakness, and depression presented to the [facility] [place] with complaints of generalized pain. Records from [facility] reviewed. Patient eloped from the hospital due to her anxiety. Patient is not actively getting treatment for cancer. She is DNR, DNI. She was made hospice during her last hospitalization. Patients daughter cannot come to the hospital due to her health issues however daughter wants patient to go to rehab as she is unable to take care of her mom. Discussed with Dr Cantrell and Lori NURSE EXAMINER in detail. Patient feels better today. Continue Klonopin and seroquel for agitation. She continues to have fever most likely due to metastatic disease. Prognosis is poor. Upon discharge patient will follow up with Dr Cintron? Dr Ines Peterson
[2017-03-28 16:50] VITALS: BP 100/58; PULSE 63; TEMP 98.8; O2SAT 95
--- NOTE | 2017-03-28 17:11 | CP.PCM.DIS ---
<Socrates Comer - Last Filed: 03/28/17 20:02> Provider - Provider Date of Admission: 03/26/17 06:38 Attending physician: Ines Peterson MD Primary care physician: Tanya Cintron Time Spent in preparation of Discharge (in minutes): 45 Diagnosis - Discharge Diagnosis (1) Cervical cancer Status: Chronic Priority: High (2) Urinary retention Status: Acute Comment: s/p b/l nephrostomy tube placement (3) History of nephrostomy Status: Chronic (4) Cocaine abuse Status: Chronic (5) Alcohol use disorder, severe, dependence Status: Chronic (6) Anxiety Status: Chronic (7) Depression Status: Chronic (8) History of CVA (cerebrovascular accident) Status: Chronic (9) Hypertension Status: Chronic Hospital Course - Lab Results Lab Results: Micro Results 03/26/17 11:30 Urine,Clean Catch Urine Culture - Final No Growth (<1,000 CFU/ML) 03/26/17 11:30 Urine Urine Culture - Final No Growth (<1,000 CFU/ML) 03/26/17 08:00 Blood-Venous Blood Culture - Preliminary NO GROWTH AFTER 48 HOURS 03/26/17 07:30 Blood-Venous Blood Culture - Preliminary NO GROWTH AFTER 48 HOURS 03/26/17 11:53 Urine,Clean Catch Urine Culture - Final No Growth (<1,000 CFU/ML) Most Recent Lab Values WBC 4.2 10^3/ul (4.5-11.0) L D 03/28/17 01:00 RBC 3.44 10^6/uL (3.5-6.1) L 03/28/17 01:00 Hgb 9.0 g/dL (12.0-16.0) L 03/28/17 01:00 Hct 27.9 % (36.0-48.0) L 03/28/17 01:00 MCV 81.1 fl (80.0-105.0) 03/28/17 01:00 MCH 26.2 pg (25.0-35.0) 03/28/17 01:00 MCHC 32.3 g/dl (31.0-37.0) 03/28/17 01:00 RDW 16.8 % (11.5-14.5) H 03/28/17 01:00 Plt Count 321 10^3/uL (120.0-450.0) 03/28/17 01:00 MPV 9.0 fl (7.0-11.0) 03/28/17 01:00 Gran % 70.0 % (50.0-68.0) H 03/28/17 01:00 Lymph % (Auto) 21.4 % (22.0-35.0) L 03/28/17 01:00 Moffat % (Auto) 8.2 % (1.0-6.0) H 03/28/17 01:00 Eos % (Auto) 0.2 % (1.5-5.0) L 03/28/17 01:00 Baso % (Auto) 0.2 % (0.0-3.0) 03/28/17 01:00 Gran # 2.91 (1.4-6.5) 03/28/17 01:00 Lymph # (Auto) 0.9 (1.2-3.4) L 03/28/17 01:00 Moffat # (Auto) 0.3 (0.1-0.6) 03/28/17 01:00 Eos # (Auto) 0.0 (0.0-0.7) 03/28/17 01:00 Baso # (Auto) 0.01 K/mm3 (0.0-2.0) 03/28/17 01:00 PT 13.5 SECONDS (9.4-12.5) H 03/24/17 05:25 INR 1.17 (0.93-1.08) H 03/24/17 05:25 APTT 27.8 Seconds (25.1-36.5) 03/24/17 05:25 Sodium 139 mmol/L (132-148) 03/27/17 06:10 Potassium 3.5 mmol/L (3.6-5.0) L 03/27/17 06:10 Chloride 107 mmol/L (98-107) 03/27/17 06:10 Carbon Dioxide 24 mmol/L (21-33) 03/27/17 06:10 Anion Gap 11 (10-20) 03/27/17 06:10 BUN 15 mg/dL (7-21) 03/27/17 06:10 Creatinine 0.9 mg/dl (0.7-1.2) 03/27/17 06:10 Est GFR ( Amer) > 60 03/27/17 06:10 Est GFR (Non-Af Amer) > 60 03/27/17 06:10 Random Glucose 106 mg/dL (70-110) 03/27/17 06:10 Calcium 8.9 mg/dL (8.4-10.5) 03/27/17 06:10 Iron 25 ug/dL (45-180) L 03/24/17 13:49 TIBC 245 ug/dL (265-497) L 03/24/17 13:49 % Saturation 10 % (20-55) L 03/24/17 13:49 Phosphorus 3.1 mg/dL (2.5-4.5) 03/27/17 06:10 Magnesium 1.8 mg/dL (1.7-2.2) 03/27/17 06:10 Ferritin 134.0 ng/mL 03/24/17 13:31 Total Bilirubin 0.2 mg/dL (0.2-1.3) 03/27/17 06:10 AST 28 U/L (14-36) 03/27/17 06:10 ALT 25 U/L (7-56) 03/27/17 06:10 Alkaline Phosphatase 69 U/L (38-126) 03/27/17 06:10 Lactate Dehydrogenase 564 U/L (333-699) 03/24/17 06:00 Total Creatine Kinase 195 U/L (35-230) 03/24/17 06:00 Troponin I 0.02 ng/mL D 03/24/17 19:30 Total Protein 6.5 g/dL (5.8-8.3) 03/27/17 06:10 Albumin 2.9 g/dL (3.0-4.8) L 03/27/17 06:10 Globulin 3.6 gm/dL 03/27/17 06:10 Albumin/Globulin Ratio 0.8 (1.1-1.8) L 03/27/17 06:10 Triglycerides 55 mg/dL (35-160) 03/24/17 13:31 Cholesterol 107 mg/dL (130-200) L 03/24/17 13:31 LDL Cholesterol Direct 46 mg/dL (0-129) 03/24/17 13:31 HDL Cholesterol 34 mg/dL (29-60) 03/24/17 13:31 Vitamin B12 402 pg/mL (239-931) 03/24/17 13:31 Folate 16.4 ng/mL 03/24/17 13:31 TSH 3rd Generation 0.72 mIU/mL (0.46-4.68) 03/24/17 13:49 Procalcitonin 0.21 NG/ML (0.19-0.49) 03/26/17 12:00 Urine Color Yellow (YELLOW) 03/26/17 12:29 Urine Appearance Sl cloudy (CLEAR) 03/26/17 12:29 Urine pH 6.0 (4.7-8.0) 03/26/17 12:29 Ur Specific Monroe 1.010 (1.005-1.035) 03/26/17 12:29 Urine Protein Negative mg/dL (<30 mg/dL) 03/26/17 12:29 Urine Glucose (UA) Negative mg/dL (NEGATIVE) 03/26/17 12:29 Urine Ketones Negative mg/dL (NEGATIVE) 03/26/17 12:29 Urine Blood Large (NEGATIVE) H 03/26/17 12:29 Urine Nitrate Negative (NEGATIVE) 03/26/17 12:29 Urine Bilirubin Negative (NEGATIVE) 03/26/17 12:29 Urine Urobilinogen 0.2 E.U./dL (<1 E.U./dL) 03/26/17 12:29 Ur Leukocyte Esterase Trace Marilee/uL (NEGATIVE) H 03/26/17 12:29 Urine RBC 10 - 15 /hpf (0-2) 03/26/17 12:29 Urine WBC 1 - 3 /hpf (0-6) 03/26/17 12:29 Ur Epithelial Cells 1 - 3 /hpf (0-5) 03/26/17 12:29 Urine Bacteria Few (NEG) 03/26/17 12:29 Urine Opiates Screen Negative (NEGATIVE) 03/24/17 06:10 Urine Methadone Screen Negative (NEGATIVE) 03/24/17 06:10 Ur Barbiturates Screen Negative (NEGATIVE) 03/24/17 06:10 Ur Phencyclidine Scrn Negative (NEGATIVE) 03/24/17 06:10 Ur Amphetamines Screen Negative (NEGATIVE) 03/24/17 06:10 U Benzodiazepines Scrn Negative (NEGATIVE) 03/24/17 06:10 U Oth Cocaine Metabols Positive (NEGATIVE) H 03/24/17 06:10 U Cannabinoids Screen Negative (NEGATIVE) 03/24/17 06:10 Blood Type A POSITIVE 03/26/17 08:00 Antibody Screen Negative 03/26/17 08:00 BBK History Checked Patient has bt 03/26/17 08:00 - Hospital Course Hospital Course: Ms. 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 Per patient, she was not being treated well there. Per medical records obtained from [facility], the patient is s/p 7 day Vanco treatment for MRSA in urine cultures, and patient had refused to have the nephrostomy tubes replaced and eloped before transfer to hospice care at [place], [place]. The patient was given Amikacin x1 and started on Aztreonam. Procal was low and repeat cultures from blood, urine from both nephrostomy tubes and from her urethra which she still can urinate from. Intermittent fevers likely 2/2 cancer. IR was consulted and decided on no intervention for nephrostomy tubes. ID followed patient and adjusted antibiotic treatment. Psych and Palliative care were also part of the patient's care because she was very anxious and agitate. The patient's daughter was involved in the process of making the patient DNR/DNI, which was her status at the prior hospital per their records. SW worked on placement for the patient , and she was accepted at [facility]. The patient is medically stable for transfer. The patient's mood was also controlled well on meds stared by psych which will be continued. Discharge Exam - Additional Findings Additional findings: - Constitutional Appears: No Acute Distress, Unkempt, Confused - Head Exam Head Exam: NORMAL INSPECTION - Eye Exam Eye Exam: EOMI, Normal appearance - ENT Exam ENT Exam: Mucous Membranes Moist - Neck Exam Neck Exam: Normal Inspection - Respiratory Exam Respiratory Exam: Clear to Ausculation Bilateral, NORMAL BREATHING PATTERN. absent: Wheezes - Cardiovascular Exam Cardiovascular Exam: RRR, +S1, +S2 - GI/Abdominal Exam GI & Abdominal Exam: Soft, Normal Bowel Sounds. absent: Distended, Tenderness - Extremities Exam Extremities Exam: Full ROM, Normal Inspection. absent: Pedal Edema - Back Exam Back Exam: absent: CVA Tenderness (L & R) Additional comments: b/l nephrostomy tubes draining into bags, urine is clear with no blood noted - Neurological Exam Neurological Exam: Alert, Awake Additional comments: aphasic, slurring speech - Psychiatric Exam Psychiatric exam: Normal Affect, Anxious - Skin Skin Exam: Normal Color, Warm Discharge Plan - Follow Up Plan Condition: STABLE Disposition: TRANSF TO SNF Instructions: Cervical Cancer (DC), Cervical Cancer (GEN), Chest Wall Pain (GEN ) Additional Instructions: Patient accepted to [facility] Referrals: Tanya Cintron MD [Primary Care Provider] - <Ines Peterson - Last Filed: 03/29/17 12:35> Provider - Provider Date of Admission: 03/26/17 06:38 Attending physician: Ines Peterson MD Primary [facility] Course - Lab Results Lab Results: Micro Results 03/26/17 08:00 Blood-Venous Blood Culture - Preliminary NO GROWTH AFTER 3 DAYS 03/26/17 07:30 Blood-Venous Blood Culture - Preliminary NO GROWTH AFTER 3 DAYS 03/26/17 11:30 Urine,Clean Catch Urine Culture - Final No Growth (<1,000 CFU/ML) 03/26/17 11:30 Urine Urine Culture - Final No Growth (<1,000 CFU/ML) 03/26/17 11:53 Urine,Clean Catch Urine Culture - Final No Growth (<1,000 CFU/ML) Most Recent Lab Values WBC 4.2 10^3/ul (4.5-11.0) L D 03/28/17 01:00 RBC 3.44 10^6/uL (3.5-6.1) L 03/28/17 01:00 Hgb 9.0 g/dL (12.0-16.0) L 03/28/17 01:00 Hct 27.9 % (36.0-48.0) L 03/28/17 01:00 MCV 81.1 fl (80.0-105.0) 03/28/17 01:00 MCH 26.2 pg (25.0-35.0) 03/28/17 01:00 MCHC 32.3 g/dl (31.0-37.0) 03/28/17 01:00 RDW 16.8 % (11.5-14.5) H 03/28/17 01:00 Plt Count 321 10^3/uL (120.0-450.0) 03/28/17 01:00 MPV 9.0 fl (7.0-11.0) 03/28/17 01:00 Gran % 70.0 % (50.0-68.0) H 03/28/17 01:00 Lymph % (Auto) 21.4 % (22.0-35.0) L 03/28/17 01:00 Moffat % (Auto) 8.2 % (1.0-6.0) H 03/28/17 01:00 Eos % (Auto) 0.2 % (1.5-5.0) L 03/28/17 01:00 Baso % (Auto) 0.2 % (0.0-3.0) 03/28/17 01:00 Gran # 2.91 (1.4-6.5) 03/28/17 01:00 Lymph # (Auto) 0.9 (1.2-3.4) L 03/28/17 01:00 Moffat # (Auto) 0.3 (0.1-0.6) 03/28/17 01:00 Eos # (Auto) 0.0 (0.0-0.7) 03/28/17 01:00 Baso # (Auto) 0.01 K/mm3 (0.0-2.0) 03/28/17 01:00 PT 13.5 SECONDS (9.4-12.5) H 03/24/17 05:25 INR 1.17 (0.93-1.08) H 03/24/17 05:25 APTT 27.8 Seconds (25.1-36.5) 03/24/17 05:25 Sodium 139 mmol/L (132-148) 03/27/17 06:10 Potassium 3.5 mmol/L (3.6-5.0) L 03/27/17 06:10 Chloride 107 mmol/L (98-107) 03/27/17 06:10 Carbon Dioxide 24 mmol/L (21-33) 03/27/17 06:10 Anion Gap 11 (10-20) 03/27/17 06:10 BUN 15 mg/dL (7-21) 03/27/17 06:10 Creatinine 0.9 mg/dl (0.7-1.2) 03/27/17 06:10 Est GFR ( Amer) > 60 03/27/17 06:10 Est GFR (Non-Af Amer) > 60 03/27/17 06:10 Random Glucose 106 mg/dL (70-110) 03/27/17 06:10 Calcium 8.9 mg/dL (8.4-10.5) 03/27/17 06:10 Iron 25 ug/dL (45-180) L 03/24/17 13:49 TIBC 245 ug/dL (265-497) L 03/24/17 13:49 % Saturation 10 % (20-55) L 03/24/17 13:49 Phosphorus 3.1 mg/dL (2.5-4.5) 03/27/17 06:10 Magnesium 1.8 mg/dL (1.7-2.2) 03/27/17 06:10 Ferritin 134.0 ng/mL 03/24/17 13:31 Total Bilirubin 0.2 mg/dL (0.2-1.3) 03/27/17 06:10 AST 28 U/L (14-36) 03/27/17 06:10 ALT 25 U/L (7-56) 03/27/17 06:10 Alkaline Phosphatase 69 U/L (38-126) 03/27/17 06:10 Lactate Dehydrogenase 564 U/L (333-699) 03/24/17 06:00 Total Creatine Kinase 195 U/L (35-230) 03/24/17 06:00 Troponin I 0.02 ng/mL D 03/24/17 19:30 Total Protein 6.5 g/dL (5.8-8.3) 03/27/17 06:10 Albumin 2.9 g/dL (3.0-4.8) L 03/27/17 06:10 Globulin 3.6 gm/dL 03/27/17 06:10 Albumin/Globulin Ratio 0.8 (1.1-1.8) L 03/27/17 06:10 Triglycerides 55 mg/dL (35-160) 03/24/17 13:31 Cholesterol 107 mg/dL (130-200) L 03/24/17 13:31 LDL Cholesterol Direct 46 mg/dL (0-129) 03/24/17 13:31 HDL Cholesterol 34 mg/dL (29-60) 03/24/17 13:31 Vitamin B12 402 pg/mL (239-931) 03/24/17 13:31 Folate 16.4 ng/mL 03/24/17 13:31 TSH 3rd Generation 0.72 mIU/mL (0.46-4.68) 03/24/17 13:49 Procalcitonin 0.21 NG/ML (0.19-0.49) 03/26/17 12:00 Urine Color Yellow (YELLOW) 03/26/17 12:29 Urine Appearance Sl cloudy (CLEAR) 03/26/17 12:29 Urine pH 6.0 (4.7-8.0) 03/26/17 12:29 Ur Specific Monroe 1.010 (1.005-1.035) 03/26/17 12:29 Urine Protein Negative mg/dL (<30 mg/dL) 03/26/17 12:29 Urine Glucose (UA) Negative mg/dL (NEGATIVE) 03/26/17 12:29 Urine Ketones Negative mg/dL (NEGATIVE) 03/26/17 12:29 Urine Blood Large (NEGATIVE) H 03/26/17 12:29 Urine Nitrate Negative (NEGATIVE) 03/26/17 12:29 Urine Bilirubin Negative (NEGATIVE) 03/26/17 12:29 Urine Urobilinogen 0.2 E.U./dL (<1 E.U./dL) 03/26/17 12:29 Ur Leukocyte Esterase Trace Marilee/uL (NEGATIVE) H 03/26/17 12:29 Urine RBC 10 - 15 /hpf (0-2) 03/26/17 12:29 Urine WBC 1 - 3 /hpf (0-6) 03/26/17 12:29 Ur Epithelial Cells 1 - 3 /hpf (0-5) 03/26/17 12:29 Urine Bacteria Few (NEG) 03/26/17 12:29 Urine Opiates Screen Negative (NEGATIVE) 03/24/17 06:10 Urine Methadone Screen Negative (NEGATIVE) 03/24/17 06:10 Ur Barbiturates Screen Negative (NEGATIVE) 03/24/17 06:10 Ur Phencyclidine Scrn Negative (NEGATIVE) 03/24/17 06:10 Ur Amphetamines Screen Negative (NEGATIVE) 03/24/17 06:10 U Benzodiazepines Scrn Negative (NEGATIVE) 03/24/17 06:10 U Oth Cocaine Metabols Positive (NEGATIVE) H 03/24/17 06:10 U Cannabinoids Screen Negative (NEGATIVE) 03/24/17 06:10 Blood Type A POSITIVE 03/26/17 08:00 Antibody Screen Negative 03/26/17 08:00 BBK History Checked Patient has bt 03/26/17 08:00 Attending/Attestation - Attestation I have personally seen and examined this patient.: Yes I have fully participated in the care of the patient.: Yes I have reviewed all pertinent clinical information, including history, physical exam and plan: Yes Notes (Text): I have seen and examined the patient at bedside. Agree with the above note with the following additions/ exceptions: Briefly this is 56 year old female with history of stage 4 cervical cancer with mets, schizophrenia, bilateral nephrostomy tube placement, alcohol abuse, cocaine abuse, hypertension, CVA with residual left sided weakness, and depression presented to the [facility] with complaints of generalized pain. Records from [facility] reviewed. Patient eloped from the hospital due to her anxiety. Patient is not actively getting treatment for cancer. She is DNR, DNI. She was made hospice during her last hospitalization. Patients daughter cannot come to the hospital due to her health issues however daughter wants patient to go to rehab as she is unable to take care of her mom. Discussed with Dr Cantrell and Lori SPECIALIST PHYSICIAN in detail. Patient feels better today. Continue Klonopin and seroquel for agitation. She continues to have fever most likely due to metastatic disease. Prognosis is poor. She got accepted in [facility] rehab. Upon discharge patient will follow up with Dr Cintron? Dr Ines Peterson
--- NOTE | 2017-03-28 17:46 | CP.PCM.PN ---
Subjective - Date & Time of Evaluation Date of Evaluation: 03/28/17 Time of Evaluation: 17:00 - Subjective Subjective: Infectious Disease Follow Up: March 28, 2017 56 yo AA female with stage 4 cervical cancer with mets (evaluated and treated at [facility] in [place]) presenting with chest pain to [facility] evaluated than discharged from there this morning. The patient is currently complaining of chest discomfort, right leg pain, and back pain. She has nephrostomy tubes bilaterally which are not documented in prior [facility] records (last hospitalization there is October 2016). The patient is abusive is speech and limiting examination. The patient was covered in feces when arriving. Right nephrostomy site disconnected ( connecting tube and bag lost by patient). I believe the nephrostomies are relatively recent placements. The patient is constantly trying to stand and urinates on the floor. Seen by Palliative care. Persistent fevers. The patient had treatment for MRSA UTI at [facility] of 7 days. Cultures to date have been negative. Extensive metastatic disease involving inguinal lymph nodes and multiple pathological fractures of the hip, spine, and ribcage. Suspected brain metastasis. Case discussed with Dr. Peterson. Noted team started patient on Aztreonam. Fevers are more likely secondary to the patient cervical cancer and extensive metastatic disease given studies done so far at [facility]. In addition, the patient has a heavy Cocaine use history. Daughter did confirm DNI/DNR status. Objective - Vital Signs/Intake and Output Vital Signs (last 24 hours): Temp Pulse Resp BP Pulse Ox 98.8 F 63 20 100/58 L 95 03/28/17 16:00 03/28/17 16:00 03/28/17 16:00 03/28/17 16:00 03/28/17 16:00 Intake and Output: 03/28/17 03/28/17 06:59 18:59 Intake Total 1740 775 Output Total 500 Balance 1740 275 - Medications Medications: Current Medications Acetaminophen (Tylenol 325mg Tab) 650 mg PO Q4H PRN PRN Reason: Fever >100.4 F Last Admin: 03/28/17 11:37 Dose: 650 mg Aspirin (Ecotrin) 81 mg PO DAILY [facility] Last Admin: 03/28/17 09:48 Dose: 81 mg Atorvastatin Calcium (Lipitor) 40 mg PO DIN [facility] Last Admin: 03/27/17 17:24 Dose: 40 mg Clonazepam (Klonopin) 1 mg PO BID [facility] PRN Reason: Protocol Heparin Sodium (Porcine) (Heparin) 5,000 units SC Q8 [facility] PRN Reason: Protocol Last Admin: 03/28/17 14:26 Dose: 5,000 units Dextrose/Sodium Chloride (Dextrose 5%/0.45% Ns 1000 Ml) 1,000 mls @ 75 mls/hr IV .[id number] [facility] Last Admin: 03/28/17 11:37 Dose: 75 mls/hr Lisinopril (Zestril) 20 mg PO DAILY [facility] Last Admin: 03/28/17 09:48 Dose: 20 mg Lorazepam (Ativan) 1 mg IVP Q3H PRN; Protocol PRN Reason: Anxiety Last Admin: 03/28/17 16:50 Dose: 1 mg Pantoprazole Sodium (Protonix Ec Tab) 40 mg PO ACB [facility] Last Admin: 03/28/17 07:59 Dose: 40 mg Quetiapine Fumarate (Seroquel) 25 mg PO HS [facility] PRN Reason: Protocol Last Admin: 03/27/17 21:27 Dose: 25 mg Quetiapine Fumarate (Seroquel) 25 mg PO DAILY [facility] PRN Reason: Protocol Tramadol HCl (Ultram) 50 mg PO TID PRN PRN Reason: Pain, moderate (4-7) Last Admin: 03/28/17 16:49 Dose: 50 mg Ziprasidone (Geodon Inj) 20 mg IM Q8 PRN; Protocol PRN Reason: Agitation - Labs Labs: 03/28/17 01:00 03/27/17 06:10 PT 13.5 SECONDS (9.4-12.5) H 03/24/17 05:25 INR 1.17 (0.93-1.08) H 03/24/17 05:25 APTT 27.8 Seconds (25.1-36.5) 03/24/17 05:25 - Constitutional Appears: Non-toxic, No Acute Distress, Chronically Ill - Head Exam Head Exam: ATRAUMATIC, NORMOCEPHALIC - Eye Exam Eye Exam: EOMI, PERRL Pupil Exam: NORMAL ACCOMODATION, PERRL - ENT Exam ENT Exam: Mucous Membranes Moist, Normal External Ear Exam, TM's Normal Bilaterally - Neck Exam Neck Exam: Full ROM, Normal Inspection - Respiratory Exam Respiratory Exam: Clear to Ausculation Bilateral, NORMAL BREATHING PATTERN. absent: Rales, Rhonchi, Wheezes - Cardiovascular Exam Cardiovascular Exam: REGULAR RHYTHM, RRR, +S1, +S2 - GI/Abdominal Exam GI & Abdominal Exam: Soft, Normal Bowel Sounds. absent: Distended, Tenderness - Exam Additional comments: bilateral nephrostomy tubes draining urine L>R. - Extremities Exam Extremities Exam: Joint Swelling, Pedal Edema - Neurological Exam Neurological Exam: Alert, Awake, CN II-XII Intact, Oriented x3 - Psychiatric Exam Psychiatric exam: Agitated, Anxious, Depressed - Skin Additional comments: As above Assessment and Plan - Assessment and Plan (Free Text) Assessment: 56 yo AA female with Stage 4 cervical cancer with mets throughout the body with history of hysterectomy. Her treatment was done at [facility] for several years now. The patient has multiple hospitalizations and ER visits to [facility]. 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 The patient with chest discomfort, back pain, and right leg pain on presentation. The patient was in [facility] ER this morning and discharged. Started on Aztreonam and given one dose of Amikacin as discussed with Hospitalist group (Dr. Chappell). Mcclure cultures. Urine cultures negative to date. Still with fevers. Fevers most likely secondary to metastatic cervical cancer (Stage 4). Need records from [facility]... obtained. Patient completed treatment with Vancomycin for MRSA in the urine cultures there for 7 days. Cultures here of blood and urine currently negative. Antibiotics stopped. PCN allergies Thank you for allowing me to participate in the care of the patient, we will follow with you. For transfer to [facility] today.
--- NOTE | 2017-03-29 08:04 | PN ---
DATE: 03/28/2017 HISTORY OF PRESENT ILLNESS: Shortly, the patient is a 56-year-old -[place] female with multiple medical issues including stage IV cervical cancer with metastasis. The patient also has history of alcohol abuse, cocaine abuse, chronic noncompliance with the followup appointments and referrals to the rehab places. The patient had history of being admitted to the psychiatric facility for detox, most recent was in 02/2016. The patient refused to go to rehab back then. Patient was admitted on the medical side for evaluation of back pain and possible urinary obstruction secondary to mass. Psych consult was called for evaluation of possible delirium stage and anxiety. Initially, the patient was seen by nurse practitioner, Lori Kilpatrick. This inspector automatic typewriter is following the patient up for medication management as well as treatment plan discussion. Patient is very familiar to this inspector automatic typewriter from the consultation services in the past on the medical side. Patient was able to recognize this inspector automatic typewriter, but does not remember this inspector automatic typewriter by name. Patient states that she is doing fine right now. Patient reported that Klonopin is helping her. Also, the patient was started with Seroquel, which was adjusted yesterday. Patient presented relatively well. She said that she wants to go home. At the same time, the patient is homeless and the patient has no home to go. Patient has tendency of feeling anxious whenever treatment plan and hospice is discussed with her. Patient has one daughter who seems to be involved into the patient's care, and advanced directives were discussed with the patient as well as the patient's daughter by Palliative Care. PHYSICAL EXAMINATION: Going back to the patient's presentation, vital signs are deemed to be stable. Temperature 98.2. Patient is mildly tachycardic at 98, blood pressure 122/77, respirations 20, oxygen saturation is 97. MEDICATIONS: Reviewed. Patient is on Tylenol, aspirin, Lipitor. Klonopin was started yesterday at 0.5 mg three times a day, but between of that, the patient was getting Ativan IV push. This inspector automatic typewriter will increase the Klonopin and was advised to not give IV push of Ativan because the patient was able to tolerate medication by mouth. Patient also was started on Seroquel 25 mg at the nighttime and 12.5 mg twice a day. This inspector automatic typewriter will increase the dose to 25 mg twice a day at the morning time and the nighttime, and the patient is on Ultram and Geodon as needed for agitation, but the patient was not agitated and not required to have any IM. LABORATORY DATA: Labs reviewed. WBC cells 4.2, hemoglobin and hematocrit 9.0 and 27.9. Notes from Palliative Care as well as Infectious Disease as well as with attending, Dr. Peterson discussed today. MENTAL STATUS EXAMINATION: Patient appears to be sleepy, easily arousable. Whenever woke up, the patient was becoming anxious as well as tearful. Mood described as "I am fine." Affect was constricted and tearful. Mood congruent. Thought process seems to be concrete. Thought content, the patient denied visual, auditory or tactile hallucinations. Denied paranoid ideation, but based on the report few days back, the patient was actively hallucinating, but none observed during the interview, most likely Seroquel is helping the patient. Insight and judgment seems to be impaired. Impulses are well controlled. IMPRESSION: Patient has delirium stage, which is related to multiple medical issues, rule out anxiety due to general medical condition, rule out adjustment disorder with depressed and anxious mood as well as grieving should be ruled out. PLAN: Continue current management. Seroquel was increased to 25 mg twice a day, Klonopin was increased to 1 mg twice a day. Supportive therapy and empathic listening discussed. Palliative Care involved. Most likely, the patient required to go to hospice. Case was discussed with Dr. Peterson. We will follow up on this patient tomorrow to make sure the patient tolerates medications well. Should you have any questions, give me a call back. Thank you very much for letting me participate in the care of your patient. Tamia Groves MD
== END 2017-03-28 22:56 | DRG 239 ==
LOC: ED 03:42 → ERH 06:57 → 3RNO 08:05 → OBSVTOIN 03-26 06:38
PROVIDERS: ADMIT Internal Medicine; ATTEND Hospitalist
DX: C79.51 Secondary malignant neoplasm of bone (principal); F20.9 Schizophrenia, unspecified; F14.10 Cocaine abuse, uncomplicated; F10.239 Alcohol dependence with withdrawal, unspecified; G89.4 Chronic pain syndrome; I69.354 Hemiplegia and hemiparesis following cerebral infarction affecting left non-dominant side; E78.5 Hyperlipidemia, unspecified; F32.89 Other specified depressive episodes; F41.9 Anxiety disorder, unspecified; G40.909 Epilepsy, unspecified, not intractable, without status epilepticus; G89.29 Other chronic pain; I10 Essential (primary) hypertension; I69.320 Aphasia following cerebral infarction; Z51.5 Encounter for palliative care; Z59.0 Homelessness; Z66 Do not resuscitate; Z85.41 Personal history of malignant neoplasm of cervix uteri; Z87.81 Personal history of (healed) traumatic fracture; Z88.0 Allergy status to penicillin; Z90.710 Acquired absence of both cervix and uterus; Z91.19 Patient's noncompliance with other medical treatment and regimen; D64.9 Anemia, unspecified; R40.2412 Glasgow coma scale score 13-15, at arrival to emergency department; Z93.6 Other artificial openings of urinary tract status; R33.9 Retention of urine, unspecified; R50.9 Fever, unspecified